=== PATIENT | female | born 1955 | race Caucasian/White ===

== ENCOUNTER 2019-05-10 01:17 | Inpatient (IN) ==
[2019-05-10 01:42] VITALS: BMI 30.4
[2019-05-10] MEDS ORDERED: ROCEPHIN VIAL 1 GRAM IVP ONE (02:32)
--- NOTE | 2019-05-10 02:55 | ED.ABDFE ---
HPI Time Seen Time Seen by Provider: 05/10/19 02:32 PCP Primary Care Physician: PILAR Garcia Doctors Chief Complaint Comments: 63 yo female who presents for LLQ pain that started ~ 2days ago. She states that it feels like wave of sharp pain. Nothing helps and she has not had this pain previously. She states that she is constipated intermittently due to pain medication. She has not moved her bowels 72 hr ago. She has tired enema and suppository. She denies fever/nausea/vomiting/ chest pain/ SOB. Chief Complaint:: PT STATED SHE IS HAVING ABDOMINAL PAIN THWAT BEGAN HURTING ALL OVER AND NOW THE PAIN IS MOSTLY IN HER R SIDE. PT STATED THE PAIN BEGAN ABOUT 48 HRS AGO. PT STATED SHE HAD A BOWEL MOVEMENT ABOUT 3 DAYS AGO. Source History Provided: Patient and Family Member Mode of arrival Mode of Arrival: Wheelchair Timing Onset of Chief Complaint: 05/08/19 PMH PMH Past Medical History: Yes Past Medical History: Diabetes, Hypertension and Sleep Apnea Past Medical History Comment: FIBROMYALGIA, ADULT ONSET SCOLIOSIS Past Surgical History: No Surgical History: No History Family History History of Family Medical Conditions: Yes Family Medical History: Diabetes Mellitus, Cancer and [place] Social History Alcohol Use: None Do you use any recreational Drugs:: No infectious screening Have you traveled outside the country in the last 6 months?: No ROS Review of Systems Constitutional: No Symptoms Reported Eyes: No Symptoms Reported ENTM: No Symptoms Reported Respiratoy: No Symptoms Reported Cardiovascular: No Symptoms Reported Gastrointestinal/Abdominal: Abdominal Pain and Constipation Genitourinary: No Symptoms Reported Neurological: No Symptoms Reported Musculoskeletal: No Symptoms Reported Integumentary: No Symptoms Reported Hematologic/Lymphatic: No Symptoms Reported Endocrine: No Symptoms Reported Psychiatric: No Symptoms Reported All Other Systems: Reviewed and Negative PE Vital Signs Vitals: Temperature 98.9 F Pulse Rate [Left Brachial] 104 Pulse Rate 108 Respiratory Rate 13 Blood Pressure [Right Arm] 80/41 Blood Pressure [Left Arm] 138/70 Blood Pressure 103/58 O2 Sat by Pulse Oximetry 96 General Limitations: No Limitations General Appearance: Alert and In No Apparent Distress Head Head Exam: Normal Inspection, Atraumatic and Normocephalic Eyes Eye exam: Normal Appearance, PERRL and EOMI ENT ENT Exam: Normal Exam and Normal Oropharynx Neck Neck Exam: Normal Inspection and Full ROM Respiratory Respiratory Exam: Normal Lung Sounds Bilat Respiratory Exam: Bilateral: Clear to Auscultation Cardiovascular Cardiovascular Exam: Regular Rate Abdominal Exam Abdominal Exam: Normal Inspection, Normal Bowel Sounds, Tenderness (baratric surgery scar midline above umbilicus ) and Hernia (around umbilicus ) Abdominal Tenderness: LLQ Extremeties Extremities Exam: Normal Inspection and Full ROM Neurologic Neurological Exam: Alert, Oriented X3, CN II-XII Intact and Normal Gait Psychiatric Psychiatric Exam: Normal Affect and Normal Mood Skin Skin Exam: Warm, Dry and Intact MDM Additional Information Obtained From Additional information provided by: Old Records and Family Differential Diagnosis Other differential diagnosis: constipation COURSE Treatment Treatment: tx demerol, hyperkalemia tx started in ED, pt NPO due to GI issue, Reevaluation 1st: Unchanged (03:00 above the same ) 2nd: Improved (05:30 pt states that pain went away) 3rd: Worsened (07:00 plan explained to patient and need for surgerical evaulation) Consultation Consultation Comments: Aleksandr Douglas advised need for admission. Education/Counseling Education/Counseling: Patient, Family, Education and Counseling Educated On: Treatment, Diagnosis, Prognosis and Needs for Follow Up ROR Labs Reviewed Laboratory Results Reviewed?: Yes (please see original labs in ED, pt was potassium was 5.4. labs shown R new) Result Diagrams: 05/11/19 05:16 05/11/19 07:08 Laboratory: WBC 11.7 X10^3/uL (3.6-10.0) H 05/11/19 05:16 RBC 4.09 X10^6/uL (3.5-5.4) 05/11/19 05:16 Hgb 13.0 g/dL (12.0-16.0) D 05/11/19 05:16 Hct 39.7 % (36.0-47.0) 05/11/19 05:16 MCV 97.2 fL (80.0-100.0) 05/11/19 05:16 MCH 31.9 pg (27.0-34.0) 05/11/19 05:16 MCHC 32.8 g/dL (33.0-35.0) L 05/11/19 05:16 RDW 15.0 % (11.6-16.5) 05/11/19 05:16 Plt Count 156 X10^3/uL (150.0-450.0) 05/11/19 05:16 MPV 10.3 fL (7.4-11.0) 05/11/19 05:16 Neut % (Auto) 82.6 % (42.0-75.0) H 05/11/19 05:16 Lymph % (Auto) 9.6 % (21.0-51.0) L 05/11/19 05:16 [place] % (Auto) 7.5 % (0.0-13.0) 05/11/19 05:16 Eos % (Auto) 0.1 % (0.9-2.9) L 05/11/19 05:16 Baso % (Auto) 0.2 % (0.2-1.0) 05/11/19 05:16 Neut # (Auto) 9.7 x10^3/uL (2.2-4.8) H 05/11/19 05:16 Lymph # (Auto) 1.1 X10^3/uL (1.3-2.9) L 05/11/19 05:16 [place] # (Auto) 0.9 x10^3/uL (0.3-0.8) H 05/11/19 05:16 Eos # (Auto) 0.0 x10^3/uL (0.0-0.2) 05/11/19 05:16 Baso # (Auto) 0.0 X10^3/uL (0.0-0.1) 05/11/19 05:16 Absolute Nucleated RBC 0.0 /100WBC 05/11/19 05:16 PT 14.0 SECONDS (11.8-14.3) 05/10/19 10:49 INR Target Range - 05/10/19 10:49 INR 1.12 (0.8-1.3) 05/10/19 10:49 Sodium 137 mmol/L (136-145) 05/11/19 07:08 Corrected Sodium 141 mmol/L (136-145) 05/11/19 07:08 Potassium 6.7 mmol/L (3.5-5.1) H* 05/11/19 07:08 Chloride 108 mmol/L (98-107) H 05/11/19 07:08 Carbon Dioxide 15.3 mmol/L (21-32) L 05/11/19 07:08 BUN 37 mg/dL (7-18) H 05/11/19 07:08 Creatinine 3.54 mg/dL (0.55-1.02) H 05/11/19 07:08 Est GFR (MDRD) Af Amer 17 (>60) L 05/11/19 07:08 Est GFR (MDRD) Non-Af 14 (>60) L 05/11/19 07:08 Glucose 255 mg/dL (65-99) H 05/11/19 07:08 POC Glucose (mg/dL) 267 mg/dL (65-99) H 05/11/19 05:29 Calcium 8.1 mg/dL (8.5-10.1) L 05/11/19 07:08 Corrected Calcium 9.3 mg/dL (8.5-10.1) 05/11/19 07:08 Total Bilirubin 0.30 mg/dL (0.2-1.0) 05/11/19 07:08 AST 32 Units/L (15-37) 05/11/19 07:08 ALT 24 Units/L (12-78) 05/11/19 07:08 Alkaline Phosphatase 60 Units/L (46-116) 05/11/19 07:08 Total Protein 5.9 g/dL (6.4-8.2) L 05/11/19 07:08 Albumin 2.5 g/dL (3.4-5.0) L 05/11/19 07:08 Globulin 3.4 g/dL (2.5-4.5) 05/11/19 07:08 Albumin/Globulin Ratio 0.7 Ratio (1.1-2.1) L 05/11/19 07:08 Lipase 311 Units/L (73-393) 05/10/19 02:56 Specimen Type Catherized urine 05/10/19 12:20 Urine Color Yellow (YELLOW) 05/10/19 12:20 Urine Appearance Slightly hazy (CLEAR) 05/10/19 12:20 Urine pH 5.0 (5.0 - 8.0) 05/10/19 12:20 Ur Specific [place] 1.020 (1.000-1.030) 05/10/19 12:20 Urine Protein Negative (NEGATIVE) 05/10/19 12:20 Urine Glucose (UA) 4+ (NEGATIVE) 05/10/19 12:20 Urine Ketones Negative (NEGATIVE) 05/10/19 12:20 Urine Occult Blood Negative (NEGATIVE) 05/10/19 12:20 Urine Nitrite Negative (NEGATIVE) 05/10/19 12:20 Urine Bilirubin Negative (NEGATIVE) 05/10/19 12:20 Urine Urobilinogen Normal (NORMAL) 05/10/19 12:20 Ur Leukocyte Esterase Negative (NEGATIVE) 05/10/19 12:20 Urine RBC 0-2 /HPF (0-3) 05/10/19 12:20 Urine WBC None seen /HPF (0-5) 05/10/19 12:20 Ur Squamous Epith Cells Few /HPF (NEGATIVE) 05/10/19 12:20 Urine Bacteria Trace /HPF (NEGATIVE) 05/10/19 12:20 Ur Culture Indicated? No/not indicated 05/10/19 12:20 Tissue Pathology To follow 05/10/19 13:00 Other Results Comments: e: ANTWAN BEVERLY CAcct#: [id number]: [id number] : 1955Sex: FLocation: ER Order Number(s): [id number](s):ABDOMEN/PELVIS W/O CON Ordering Physician: Armond Calvo Primary Care: Rajesh Weston Service Date: 05/10/19 Service Time: 550 ADDENDUM HISTORY: Abdominal distension Study: CT abdomen pelvis without contrast Comparison: Plain film same date Technique: Axial noncontrast images with coronal and sagittal reformats. Dose reduction procedures were used with mA/kv adjusted for body size. THIS EXAMINATION IS LIMITED DUE TO THE LACK OF INTRAVENOUS CONTRAST. The examination was performed in this manner at the sole discretion of the ordering caregiver. Findings: The lung bases are clear. The liver, spleen, adrenal glands, and pancreas are within normal limits only to the limitations of an unenhanced examination. The kidneys are unobstructed and without stones. No ureteral calculi are identified. The appendix is not identified with absolute certainty. There are no secondary signs of appendicitis. Postsurgical changes are present in the area of the stomach. Calcific atherosclerotic changes present in a nondilated abdominal aorta. No intraperitoneal or retroperitoneal lymphadenopathy of significance is identified. There is a left para median upper abdominal ventral hernia containing a loop of transverse colon. Proximal to this point the proximal transverse colon, ascending colon, and cecum are markedly dilated. Cecal diameter 10.2 cm. There are no definite findings suggestive of strangulation however incarceration may be present. Immediate surgical evaluation is recommended. There are no findings suggestive of enteritis, diverticulitis, or colitis. Examination of the pelvis demonstrated no evidence for pelvic masses, pelvic fluid, or pelvic lymphadenopathy. No bladder abnormality is identified. No lytic or blastic skeletal lesions of significance are identified. IMPRESSION: Left para median ventral hernia containing a loop of transverse colon and with marked dilatation of the cecum, ascending colon and transverse colon proximal to the hernia indicating obstruction. No definite evidence for strangulation however incarceration is likely. Immediate surgical evaluation is recommended. Reported By: Time called 7:00am Amended by RANCHO FERRARI MD at 05/10/2019 7:23:01 AMThe findings and availability of the report were communicated to Danii Bauer RN,by DIEUDONNE Barkley CALL DESK MAKER, on 05/10/2019 at 7:[address] Rancho Ferrari. Opioid Opioid Risk Tool Age ([place] box if 16-45): No Total: 0 Total Score Risk Category: Low Risk Copyright: Jerry VEGA predicting aberrant behaviors Management Risks, benefits, and alternatives of opioids discussed: Yes Diagnosis Discharge Problem: Incarcerated hernia, Abdominal pain Narrative Support Text: Pt was admitted to for further workup and GI team, Dr. Weston accepted admission and transfer of care ~ 7:30 Am
[2019-05-10] MEDS ORDERED: NS 1000 ML 1,000 ML IV ONE (02:58)
[2019-05-10] MEDS ORDERED: DEMEROL INJ IVP ONE ×2 (03:02→05:51)
[2019-05-10] MEDS ORDERED: ZOFRAN INJ 4 MG VIAL IVP ONE (03:06)
[2019-05-10] MEDS ORDERED: NS 1000 ML 1,000 ML ONE (03:13)
[2019-05-10 03:14] LABS: ALANINE AMINOTRANSFERASE 24 Units/L (12-78); ALBUMIN 3.4 g/dL (3.4-5.0); ALKALINE PHOSPHATASE 81 Units/L (46-116); ASPARTATE AMINO TRANSFERASE 14 Units/L (15-37); BLOOD UREA NITROGEN 32 mg/dL (7-18); CALCIUM 9.4 mg/dL (8.5-10.1); CARBON DIOXIDE 21.4 mmol/L (21-32); CHLORIDE 99 mmol/L (98-107); COR NA(FOR HYPERGLY) 137 mmol/L (136-145); CREATININE 2.65 mg/dL (0.55-1.02); LIPASE 311 Units/L (73-393); SODIUM 131 mmol/L (136-145); TOTAL PROTEIN 7.2 g/dL (6.4-8.2); eGFR NON BLACK RACES 19 (>60)
[2019-05-10] MEDS ORDERED: ZOFRAN INJ 4 MG VIAL ONE (03:14)
[2019-05-10] MEDS ORDERED: DEMEROL INJ ONE ×2 (03:16→05:54)
[2019-05-10 03:17] LABS: BASOPHILS # (AUTO) 0.1 X10^3/uL (0.0-0.1); BASOPHILS % (AUTO) 0.7 % (0.2-1.0); EOSINOPHILS # (AUTO) 0.2 x10^3/uL (0.0-0.2); HEMATOCRIT 47.6 % (36.0-47.0); HEMOGLOBIN 15.9 g/dL (12.0-16.0); LYMPHOCYTES # (AUTO) 2.1 X10^3/uL (1.3-2.9); LYMPHOCYTES % (AUTO) 17.6 % (21.0-51.0); MEAN CORPUSCULAR HEMOGLOBIN 31.7 pg (27.0-34.0); MEAN CORPUSCULAR HGB CONC 33.5 g/dL (33.0-35.0); MEAN CORPUSCULAR VOLUME 94.8 fL (80.0-100.0); MEAN PLATELET VOLUME 10.2 fL (7.4-11.0); MONOCYTES # (AUTO) 0.9 x10^3/uL (0.3-0.8); MONOCYTES % (AUTO) 7.2 % (0.0-13.0); NEUTROPHILS # (AUTO) 8.8 x10^3/uL (2.2-4.8); NEUTROPHILS % (AUTO) 72.5 % (42.0-75.0); PLATELET COUNT 185 X10^3/uL (150.0-450.0); RED BLOOD COUNT 5.01 X10^6/uL (3.5-5.4); RED CELL DISTRIBUTION WIDTH 14.8 % (11.6-16.5); WHITE BLOOD COUNT 12.2 X10^3/uL (3.6-10.0)
--- NOTE | 2019-05-10 05:48 | RAD ---
Abdomen single view 2 images Indication: Right lower abdominal pain Comparison: No recent similar priors Findings: Postsurgical change seen in the left upper quadrant. There are distended loops of bowel, both colon and small bowel. Ileus is possible. Given the distended right colon, cecal volvulus cannot be completely excluded. Correlate clinically and follow-up with further imaging as needed. Impression: Distended loops of bowel. Recommend follow-up imaging and clinical evaluation to exclude volvulus. CT can confirm Reported By:
[2019-05-10 06:16] LABS: CALCIUM 9.1 mg/dL (8.5-10.1); CARBON DIOXIDE 23.3 mmol/L (21-32); CREATININE 2.39 mg/dL (0.55-1.02)
[2019-05-10] MEDS ORDERED: CALCIUM GLUCONATE 10% IV ONE ×2 (06:53→07:24)
--- NOTE | 2019-05-10 07:00 | CT ---
HISTORY: Abdominal distension Study: CT abdomen pelvis without contrast Comparison: Plain film same date Technique: Axial noncontrast images with coronal and sagittal reformats. Dose reduction procedures were used with mA/kv adjusted for body size. THIS EXAMINATION IS LIMITED DUE TO THE LACK OF INTRAVENOUS CONTRAST. The examination was performed in this manner at the sole discretion of the ordering caregiver. Findings: The lung bases are clear. The liver, spleen, adrenal glands, and pancreas are within normal limits only to the limitations of an unenhanced examination. The kidneys are unobstructed and without stones. No ureteral calculi are identified. The appendix is not identified with absolute certainty. There are no secondary signs of appendicitis. Postsurgical changes are present in the area of the stomach. Calcific atherosclerotic changes present in a nondilated abdominal aorta. No intraperitoneal or retroperitoneal lymphadenopathy of significance is identified. There is a left para median upper abdominal ventral hernia containing a loop of transverse colon. Proximal to this point the proximal transverse colon, ascending colon, and cecum are markedly dilated. Cecal diameter 10.2 cm. There are no definite findings suggestive of strangulation however incarceration may be present. Immediate surgical evaluation is recommended. There are no findings suggestive of enteritis, diverticulitis, or colitis. Examination of the pelvis demonstrated no evidence for pelvic masses, pelvic fluid, or pelvic lymphadenopathy. No bladder abnormality is identified. No lytic or blastic skeletal lesions of significance are identified. IMPRESSION: Left para median ventral hernia containing a loop of transverse colon and with marked dilatation of the cecum, ascending colon and transverse colon proximal to the hernia indicating obstruction. No definite evidence for strangulation however incarceration is likely. Immediate surgical evaluation is recommended. Reported By:
[2019-05-10] MEDS ORDERED: NS 100 ML IV 100 ML IV ONE (07:25)
[2019-05-10] MEDS ORDERED: NS 1000 ML 1,000 ML IV SCH (08:00)
[2019-05-10] MEDS ORDERED: SUPRANE ONE (08:43)
[2019-05-10] MEDS ORDERED: ROBINUL ONE (08:43)
[2019-05-10] MEDS ORDERED: VERSED ONE (08:43)
[2019-05-10] MEDS ORDERED: QUELICIN (OR ANECTINE) ONE (08:43)
[2019-05-10] MEDS ORDERED: DIPRIVAN VIAL ONE (08:43)
[2019-05-10] MEDS ORDERED: NEOSTIGMINE INJ ONE (08:43)
[2019-05-10] MEDS ORDERED: EPHEDRINE SULFATE INJ ONE (08:43)
[2019-05-10] MEDS ORDERED: NORCURON INJ 10 MG VIAL ONE (08:43)
[2019-05-10] MEDS: MORPHINE SULFATE INJ 2 MG INJ IVP PRN (09:31)
[2019-05-10] MEDS ORDERED: FENTANYL INJ 250 mcg ONE ×2 (11:35→13:05)
[2019-05-10] MEDS ORDERED: ANCEF 1 GRAM IV PREMIX* 1 G/50 ML BAG IV ONE (11:44)
[2019-05-10] MEDS ORDERED: LR 1000 ML IV 1,000 ML IV ONE (11:44)
--- NOTE | 2019-05-10 12:08 | RAD ---
HISTORY: Abdominal pain Study: Single-view chest Comparison: 12/01/2014. Findings: Trachea midline. Heart size is upper normal. Right lung is clear. There is chronic increased lung markings in the left lung base. Findings may represent atelectasis or infiltrate. No significant pleural fluid or pneumothorax is seen. Osseous structures are intact. There surgical clips in the upper abdomen. IMPRESSION: Chronic atelectasis or infiltrate in the left lower lobe. Reported By:
[2019-05-10] MEDS ORDERED: LEVAQUIN PREMIX IV 500 MG 500 MG/100 ML BAG IV ONE (12:25)
[2019-05-10] MEDS ORDERED: BACITRACIN VIAL ONE (13:18)
[2019-05-10 13:27] LABS: BILIRUBIN,URINE NEGATIVE (NEGATIVE); BLOOD/HEMOGLOBIN,URINE NEGATIVE (NEGATIVE); GLUCOSE, URINE 4+ (NEGATIVE); KETONES,URINE NEGATIVE (NEGATIVE); LEUKOCYTE ESTERASE ,URINE NEGATIVE (NEGATIVE); NITRITES,URINE NEGATIVE (NEGATIVE); PROTEIN,URINE NEGATIVE (NEGATIVE); UROBILINOGEN,URINE NORMAL (NORMAL)
[2019-05-10 13:34] LABS: APPEARANCE,URINE SLIGHTLY HAZY (CLEAR); BACTERIA,URINE TRACE /HPF (NEGATIVE); COLOR,URINE YELLOW (YELLOW); RBC,URINE 0-2 /HPF (0-3); SQUAMOUS EPITHELIAL CELL,UR FEW /HPF (NEGATIVE)
[2019-05-10] MEDS ORDERED: BACTROBAN TOPICAL OINT ONE (13:53)
[2019-05-10] MEDS ORDERED: BENADRYL INJ 50 MG VIAL IVP PRN (14:24)
[2019-05-10] MEDS ORDERED: REGLAN INJ 10 MG VIAL IVP PRN (14:24)
[2019-05-10] MEDS ORDERED: ZOFRAN INJ 4 MG VIAL IVP PRN (14:24)
[2019-05-10] MEDS ORDERED: PHENERGAN INJ 25 MG IM PRN (14:24)
[2019-05-10] MEDS ORDERED: DILAUDID INJ IVP PRN ×2 (14:24→14:36)
[2019-05-10] MEDS ORDERED: D5 1/2 NS 1000 ML 1,000 ML IV SCH (15:00)
[2019-05-10] MEDS ORDERED: NS IRRIGATION 1000 ML ONE (15:12)
--- NOTE | 2019-05-10 19:12 | DR.H&P ---
H&P - History & Physical for Day of: H&P Date: 05/10/19 - Chief Complaint Chief Complaint: ABDOMINAL PAIN - History of Present Illness History of Present Illness: IS A 63 YEAR OLD PATIENT OF OURS WHO PRESENTED TO THE ER WITH COMPLAINTS OF ABDOMINAL PAIN. SHE REPORTED THAT SYMPTOMS STARTED APPROXIMATELY 48 HOURS PRIOR TO ARRIVAL. PAIN WAS INNITIALLY DIFFUSE, BUT IS NOW LOCATED IN THE LLQ. SHE ADMITS TO INTERMITTENT CONSTIPATION AND HAS NOT HAD A BOWEL MOVEMENT IN THE PAST THREE DAYS. ABDOMEN IS NOTED TO BE DISTENDED ON EXAMINATION. ON ARRIVAL, VITALS WERE 97.4-103-18-92%-108/62. LABS WERE OBTAINED. ABNORMAL LAB VALUES INCLUDE THE FOLLOWING: WBC 12.2, HCT 47.6, SODIUM 131, POTASSIUM 5.3, BUN 32, CREATININE 2.65, GLUCOSE 343, AST 14. URINALYSIS IS UNREMARKABLE. KUB OBTAINED AND REVEALED: Distended loops of bowel. Recommend follow-up imaging and clinical evaluation to exclude volvulus. CT can confirm. WE THEN OBTAINED AN ABDOMEN/PELVIS CT. IT REVEALED: Left para median ventral hernia containing a loop of transverse colon and with marked dilatation of the cecum, ascending colon and transverse colon proximal to the hernia indicating obstruction. No definite evidence for strangulation however incarceration is likely. Immediate surgical evaluation is recommended. EGK OBTAINED AND REVEALED: SINUS RHYTHM WITH HR 97. A CHEST XRAY WAS OBTAINED AND REVEALED: Chronic atelectasis or infiltrate in the left lower lobe. HE WAS GIVEN A NORMAL SALINE BOLUS, DEMEROL 12.5MG IV X 1 DOSE, ZOFRAN 4MG IV X 1 DOSE, AND AN ADDITIONAL DOSE OF DEMEROL 25MG IV X 1 IN THE ER. SHE WAS ADMITTED FOR FURTHER EVALUATION AND TREATMENT OF INCARCERATED HERNIA AND ABDOMINAL PAIN. SHE WAS STARTED ON NORMAL SALINE AT 75ML/HR, PROTONIX 40MG IV DAILY, MORPHINE 2MG IV Q4H PRN, AND ZOFRAN 4MG IV Q6H PRN. , GENERAL SURGEON WAS CONSULTED. Pablo MARRUFO, WE PLAN TO FOLLOW UP WITH AM LABS AD CONTINUE TO MONITOR. - Past Medical History Past Medical History: Hypertension, Diabetes, Sleep Apnea Additional Medical History: Recent Critical Care Illness/ARDS, Fibromyalgia - Past Surgical History Surgical History: Other Additional Surgical History: Lap Band, Reduction Mammoplasty - Family History Family Medical History: Diabetes Mellitus, Cancer, [place] - Social History Does any household member use tobacco: No Alcohol Use: None Drug Use: Prescription Drugs Prescription drug monitoring program results: PDMP was not reviewed - Medications Home Medications: iodine Allergy (Verified 05/10/19 02:26) Uhewpfd-Xai-Srg Reductase Inhibitor Allergy (Verified 05/10/19 02:26) - Review of Systems Constitutional: Weakness Eyes: No Symptoms Reported ENT: No Symptoms Reported Respiratory: No Symptoms Reported Cardiovascular: No Symptoms Reported Gastrointestinal: See HPI, Nausea, Abdominal Pain, Constipation Genitourinary: No Symptoms Reported Musculoskeletal: No Symptoms Reported Skin: No Symptoms Reported - Physical Exam Vital Signs: Temperature 98.6 F Pulse Rate [Left Brachial] 106 Pulse Rate 103 Respiratory Rate 18 Blood Pressure [Right Arm] 103/58 Blood Pressure [Left Arm] 138/70 Blood Pressure 103/58 O2 Sat by Pulse Oximetry 94 Oriented: Normal Eyes: Normal Ear: Normal Nose: Normal Throat: Normal Respiratory: Clear Throughout Cardiovascular: Tachycardia. negative: S3, S4, Murmur : Normal Auscultation: Bowel Sounds: Normal Palpation: Normal Tenderness: Diffuse, LLQ, Moderate. negative: Rebound, Guarding, Rigidity Skin: Normal Musculoskeletal: Normal Psychiatric: Normal Mood Description: Calm Affect: Normal Speech Pattern: Clear - Assessment/Plan (1) Abdominal pain Qualifiers: Abdominal location: left lower quadrant Qualified Code(s): R10.32 - Left lower quadrant pain Status: Acute Plan: ADMIT, NORMAL SALINE AT 75ML/HR, PROTONIX 40MG IV DAILY, MORPHINE 2MG IV Q4H PRN, AND ZOFRAN 4MG IV Q6H PRN, SURGICAL CONSULT, NPO (2) Incarcerated hernia Status: Acute - Allergies Allergies/Adverse Reactions: Allergies Allergy/AdvReac Type Severity Reaction Status Date / Time iodine Allergy Verified 05/10/19 02:26 Mfolsho-Qwk-Imh Reductase Allergy Verified 05/10/19 02:26 Inhibitor
[2019-05-10] MEDS: NS 1000 ML 1,000 ML IV SCH (21:48)
[2019-05-11] MEDS: NS 1000 ML 1,000 ML IV SCH ×3 (00:30→20:09)
[2019-05-11 06:40] LABS: BASOPHILS % (AUTO) 0.2 % (0.2-1.0); EOSINOPHILS % (AUTO) 0.1 % (0.9-2.9); HEMATOCRIT 39.7 % (36.0-47.0); LYMPHOCYTES # (AUTO) 1.1 X10^3/uL (1.3-2.9); LYMPHOCYTES % (AUTO) 9.6 % (21.0-51.0); MEAN CORPUSCULAR HEMOGLOBIN 31.9 pg (27.0-34.0); MEAN CORPUSCULAR HGB CONC 32.8 g/dL (33.0-35.0); MEAN CORPUSCULAR VOLUME 97.2 fL (80.0-100.0); MEAN PLATELET VOLUME 10.3 fL (7.4-11.0); MONOCYTES # (AUTO) 0.9 x10^3/uL (0.3-0.8); MONOCYTES % (AUTO) 7.5 % (0.0-13.0); NEUTROPHILS # (AUTO) 9.7 x10^3/uL (2.2-4.8); NEUTROPHILS % (AUTO) 82.6 % (42.0-75.0); PLATELET COUNT 156 X10^3/uL (150.0-450.0); RED BLOOD COUNT 4.09 X10^6/uL (3.5-5.4); WHITE BLOOD COUNT 11.7 X10^3/uL (3.6-10.0)
[2019-05-11 07:00] LABS: ALBUMIN 2.5 g/dL (3.4-5.0); CALCIUM 8.1 mg/dL (8.5-10.1); CARBON DIOXIDE 15.3 mmol/L (21-32); COR CA(FOR HYPOALB) 9.3 mg/dL (8.5-10.1); CREATININE 3.54 mg/dL (0.55-1.02); TOTAL PROTEIN 5.9 g/dL (6.4-8.2)
--- NOTE | 2019-05-11 08:23 | DR.PROGNOT ---
Hospital Progress Notes - Progress Note for Day of: Progress Note Date: 05/11/19 - Chief Complaint Chief Complaint: Post op day 1. c/o incisional pain . urine OP was low as well as BP . - Past Medical Family Social History Past Med/Fam/Surg Hx: No changes since H&P Allergies: Allergies hydromorphone [From Dilaudid] Allergy (Verified 05/10/19 22:16) HALLUCINATIONS iodine Allergy (Verified 05/10/19 02:26) Dyhukia-Adn-Uvd Reductase Inhibitor Allergy (Verified 05/10/19 02:26) - Review Of Systems ROS: No change since H&P - Vital Signs Vital Signs: Temperature 98.9 F Pulse Rate [Left Brachial] 104 Pulse Rate 103 Respiratory Rate 13 Blood Pressure [Right Arm] 80/41 Blood Pressure [Left Arm] 138/70 Blood Pressure 103/58 O2 Sat by Pulse Oximetry 95 - Physical Exam Oriented: Normal Eyes: Normal Ear: Normal Nose: Normal Throat: Normal Cardiovascular: Tachycardia. negative: S3, S4, Murmur : Other (groves in place ) GI:Auscultation: Normal, Decreased GI:Palpation: Normal GI: Tenderness: Diffuse (moderate .), LLQ, Moderate. negative: Rebound, Guarding, Rigidity Skin: Normal Musculoskeletal: Normal Psychiatric: Normal Mood Description: Calm Affect: Normal Speech Pattern: Appropriate - Laboratory and Diagnostics Result Diagrams: 05/11/19 05:16 05/11/19 07:08 Labs: Laboratory WBC 11.7 X10^3/uL (3.6-10.0) H 05/11/19 05:16 RBC 4.09 X10^6/uL (3.5-5.4) 05/11/19 05:16 Hgb 13.0 g/dL (12.0-16.0) D 05/11/19 05:16 Hct 39.7 % (36.0-47.0) 05/11/19 05:16 MCV 97.2 fL (80.0-100.0) 05/11/19 05:16 MCH 31.9 pg (27.0-34.0) 05/11/19 05:16 MCHC 32.8 g/dL (33.0-35.0) L 05/11/19 05:16 RDW 15.0 % (11.6-16.5) 05/11/19 05:16 Plt Count 156 X10^3/uL (150.0-450.0) 05/11/19 05:16 MPV 10.3 fL (7.4-11.0) 05/11/19 05:16 Neut % (Auto) 82.6 % (42.0-75.0) H 05/11/19 05:16 Lymph % (Auto) 9.6 % (21.0-51.0) L 05/11/19 05:16 [place] % (Auto) 7.5 % (0.0-13.0) 05/11/19 05:16 Eos % (Auto) 0.1 % (0.9-2.9) L 05/11/19 05:16 Baso % (Auto) 0.2 % (0.2-1.0) 05/11/19 05:16 Neut # (Auto) 9.7 x10^3/uL (2.2-4.8) H 05/11/19 05:16 Lymph # (Auto) 1.1 X10^3/uL (1.3-2.9) L 05/11/19 05:16 [place] # (Auto) 0.9 x10^3/uL (0.3-0.8) H 05/11/19 05:16 Eos # (Auto) 0.0 x10^3/uL (0.0-0.2) 05/11/19 05:16 Baso # (Auto) 0.0 X10^3/uL (0.0-0.1) 05/11/19 05:16 Absolute Nucleated RBC 0.0 /100WBC 05/11/19 05:16 PT 14.0 SECONDS (11.8-14.3) 05/10/19 10:49 INR Target Range - 05/10/19 10:49 INR 1.12 (0.8-1.3) 05/10/19 10:49 Sodium 137 mmol/L (136-145) 05/11/19 07:08 Corrected Sodium 141 mmol/L (136-145) 05/11/19 07:08 Potassium 6.7 mmol/L (3.5-5.1) H* 05/11/19 07:08 Chloride 108 mmol/L (98-107) H 05/11/19 07:08 Carbon Dioxide 15.3 mmol/L (21-32) L 05/11/19 07:08 BUN 37 mg/dL (7-18) H 05/11/19 07:08 Creatinine 3.54 mg/dL (0.55-1.02) H 05/11/19 07:08 Est GFR (MDRD) Af Amer 17 (>60) L 05/11/19 07:08 Est GFR (MDRD) Non-Af 14 (>60) L 05/11/19 07:08 Glucose 255 mg/dL (65-99) H 05/11/19 07:08 POC Glucose (mg/dL) 267 mg/dL (65-99) H 05/11/19 05:29 Calcium 8.1 mg/dL (8.5-10.1) L 05/11/19 07:08 Corrected Calcium 9.3 mg/dL (8.5-10.1) 05/11/19 07:08 Total Bilirubin 0.30 mg/dL (0.2-1.0) 05/11/19 07:08 AST 32 Units/L (15-37) 05/11/19 07:08 ALT 24 Units/L (12-78) 05/11/19 07:08 Alkaline Phosphatase 60 Units/L (46-116) 05/11/19 07:08 Total Protein 5.9 g/dL (6.4-8.2) L 05/11/19 07:08 Albumin 2.5 g/dL (3.4-5.0) L 05/11/19 07:08 Globulin 3.4 g/dL (2.5-4.5) 05/11/19 07:08 Albumin/Globulin Ratio 0.7 Ratio (1.1-2.1) L 05/11/19 07:08 Lipase 311 Units/L (73-393) 05/10/19 02:56 Specimen Type Catherized urine 05/10/19 12:20 Urine Color Yellow (YELLOW) 05/10/19 12:20 Urine Appearance Slightly hazy (CLEAR) 05/10/19 12:20 Urine pH 5.0 (5.0 - 8.0) 05/10/19 12:20 Ur Specific [place] 1.020 (1.000-1.030) 05/10/19 12:20 Urine Protein Negative (NEGATIVE) 05/10/19 12:20 Urine Glucose (UA) 4+ (NEGATIVE) 05/10/19 12:20 Urine Ketones Negative (NEGATIVE) 05/10/19 12:20 Urine Occult Blood Negative (NEGATIVE) 05/10/19 12:20 Urine Nitrite Negative (NEGATIVE) 05/10/19 12:20 Urine Bilirubin Negative (NEGATIVE) 05/10/19 12:20 Urine Urobilinogen Normal (NORMAL) 05/10/19 12:20 Ur Leukocyte Esterase Negative (NEGATIVE) 05/10/19 12:20 Urine RBC 0-2 /HPF (0-3) 05/10/19 12:20 Urine WBC None seen /HPF (0-5) 05/10/19 12:20 Ur Squamous Epith Cells Few /HPF (NEGATIVE) 05/10/19 12:20 Urine Bacteria Trace /HPF (NEGATIVE) 05/10/19 12:20 Ur Culture Indicated? No/not indicated 05/10/19 12:20 Tissue Pathology To follow 05/10/19 13:00 - Assessment and Plan 1: PO laparotomy , lysis of adhesions . rapair of incarcerated incisional hernia ,. dehydration and hyperkalemia . CKD . DM . to increase IVF . Insuline coverage and correction of hyperkalemia - Problem Patient Problems: Patient Problems Abdominal pain (Acute) R10.9 Incarcerated hernia (Acute) K46.0
[2019-05-11] MEDS: LOVENOX INJ 30 MG SYR SC SCH (08:44)
[2019-05-11] MEDS: PROTONIX INJ 40 MG VIAL IVP SCH (08:45)
[2019-05-11] MEDS: DUONEB 0.5 MG/3 MG NEB SCH ×4 (08:56→20:41)
[2019-05-11] MEDS ORDERED: NS 1000 ML 1,000 ML IV SCH (09:00)
--- NOTE | 2019-05-11 09:29 | RAD ---
History: Shortness of breath Exam: Chest x-ray Comparison: 12/01/2014 Technique: Portable AP chest Findings: The left ventricle is mildly enlarged but unchanged. The pulmonary vessels are less prominent centrally . The lungs are hypoinflated with some hazy subsegmental bibasilar opacities which are more prominent. No obvious effusion is seen. IMPRESSION: Hypoinflation with increasing subsegmental atelectasis or developing infiltrates along the lung bases. Stable left ventricular enlargement. Reported By:
[2019-05-11] MEDS ORDERED: NS 1000 ML 1,000 ML IV ONE (10:10)
[2019-05-11] MEDS ORDERED: LASIX IVP ONE (10:10)
[2019-05-11] MEDS: MORPHINE SULFATE INJ 2 MG INJ IVP PRN (17:35)
[2019-05-11] MEDS: TORADOL 15 MG VIAL IVP PRN (20:08)
[2019-05-12] MEDS: TORADOL 15 MG VIAL IVP PRN ×2 (01:32→08:40)
[2019-05-12 05:06] LABS: BASOPHILS % (AUTO) 0.4 % (0.2-1.0); EOSINOPHILS # (AUTO) 0.1 x10^3/uL (0.0-0.2); EOSINOPHILS % (AUTO) 1.2 % (0.9-2.9); HEMATOCRIT 36.2 % (36.0-47.0); HEMOGLOBIN 12.1 g/dL (12.0-16.0); LYMPHOCYTES # (AUTO) 1.2 X10^3/uL (1.3-2.9); LYMPHOCYTES % (AUTO) 15.1 % (21.0-51.0); MEAN CORPUSCULAR HEMOGLOBIN 31.9 pg (27.0-34.0); MEAN CORPUSCULAR HGB CONC 33.3 g/dL (33.0-35.0); MEAN CORPUSCULAR VOLUME 95.8 fL (80.0-100.0); MEAN PLATELET VOLUME 9.8 fL (7.4-11.0); MONOCYTES # (AUTO) 0.6 x10^3/uL (0.3-0.8); MONOCYTES % (AUTO) 7.9 % (0.0-13.0); NEUTROPHILS # (AUTO) 5.9 x10^3/uL (2.2-4.8); NEUTROPHILS % (AUTO) 75.4 % (42.0-75.0); PLATELET COUNT 127 X10^3/uL (150.0-450.0); RED BLOOD COUNT 3.78 X10^6/uL (3.5-5.4); RED CELL DISTRIBUTION WIDTH 14.4 % (11.6-16.5); WHITE BLOOD COUNT 7.8 X10^3/uL (3.6-10.0)
[2019-05-12 05:15] LABS: ALBUMIN 2.1 g/dL (3.4-5.0); CALCIUM 8.1 mg/dL (8.5-10.1); CARBON DIOXIDE 19.4 mmol/L (21-32); COR CA(FOR HYPOALB) 9.6 mg/dL (8.5-10.1); CREATININE 2.71 mg/dL (0.55-1.02); TOTAL PROTEIN 5.7 g/dL (6.4-8.2)
[2019-05-12] MEDS: MORPHINE SULFATE INJ 2 MG INJ IVP PRN ×2 (06:12→18:15)
[2019-05-12] MEDS: DUONEB 0.5 MG/3 MG NEB SCH ×4 (08:20→20:31)
[2019-05-12] MEDS: PROTONIX INJ 40 MG VIAL IVP SCH (08:36)
[2019-05-12] MEDS: LOVENOX INJ 30 MG SYR SC SCH (08:36)
--- NOTE | 2019-05-12 09:41 | DR.PROGNOT ---
Hospital Progress Notes - Progress Note for Day of: Progress Note Date: 05/12/19 - Chief Complaint Chief Complaint: Post op day 2. c/o incisional pain . good urine Out Put , renal function still abnormal . afebrile and stable BP . - Past Medical Family Social History Past Med/Fam/Surg Hx: No changes since H&P Allergies: Allergies hydromorphone [From Dilaudid] Allergy (Verified 05/10/19 22:16) HALLUCINATIONS iodine Allergy (Verified 05/10/19 02:26) Vpjkccb-Exq-Yqy Reductase Inhibitor Allergy (Verified 05/10/19 02:26) - Review Of Systems ROS: No change since H&P - Vital Signs Vital Signs: Temperature 98.1 F Pulse Rate [Left Brachial] 106 Pulse Rate 102 Respiratory Rate 20 Blood Pressure [Right Arm] 92/53 Blood Pressure [Left Arm] 138/70 Blood Pressure 95/62 O2 Sat by Pulse Oximetry 94 - Physical Exam Oriented: Normal Eyes: Normal Ear: Normal Nose: Normal Throat: Normal Cardiovascular: Tachycardia. negative: S3, S4, Murmur : Other (groves in place ) GI:Auscultation: Normal, Decreased GI:Palpation: Normal GI: Tenderness: Diffuse (moderate .), LLQ, Moderate. negative: Rebound, Gu arding, Rigidity Skin: Normal Musculoskeletal: Normal Psychiatric: Normal Mood Description: Calm Affect: Normal Speech Pattern: Clear, Appropriate - Laboratory and Diagnostics Result Diagrams: 05/12/19 04:29 05/12/19 04:29 Labs: Laboratory WBC 7.8 X10^3/uL (3.6-10.0) 05/12/19 04:29 RBC 3.78 X10^6/uL (3.5-5.4) 05/12/19 04:29 Hgb 12.1 g/dL (12.0-16.0) 05/12/19 04:29 Hct 36.2 % (36.0-47.0) 05/12/19 04:29 MCV 95.8 fL (80.0-100.0) 05/12/19 04:29 MCH 31.9 pg (27.0-34.0) 05/12/19 04:29 MCHC 33.3 g/dL (33.0-35.0) 05/12/19 04:29 RDW 14.4 % (11.6-16.5) 05/12/19 04:29 Plt Count 127 X10^3/uL (150.0-450.0) L 05/12/19 04:29 MPV 9.8 fL (7.4-11.0) 05/12/19 04:29 Neut % (Auto) 75.4 % (42.0-75.0) H 05/12/19 04:29 Lymph % (Auto) 15.1 % (21.0-51.0) L 05/12/19 04:29 [place] % (Auto) 7.9 % (0.0-13.0) 05/12/19 04:29 Eos % (Auto) 1.2 % (0.9-2.9) 05/12/19 04:29 Baso % (Auto) 0.4 % (0.2-1.0) 05/12/19 04:29 Neut # (Auto) 5.9 x10^3/uL (2.2-4.8) H 05/12/19 04:29 Lymph # (Auto) 1.2 X10^3/uL (1.3-2.9) L 05/12/19 04:29 [place] # (Auto) 0.6 x10^3/uL (0.3-0.8) 05/12/19 04:29 Eos # (Auto) 0.1 x10^3/uL (0.0-0.2) 05/12/19 04:29 Baso # (Auto) 0.0 X10^3/uL (0.0-0.1) 05/12/19 04:29 Absolute Nucleated RBC 0.0 /100WBC 05/12/19 04:29 PT 14.0 SECONDS (11.8-14.3) 05/10/19 10:49 INR Target Range - 05/10/19 10:49 INR 1.12 (0.8-1.3) 05/10/19 10:49 Sodium 139 mmol/L (136-145) 05/12/19 04:29 Corrected Sodium 142 mmol/L (136-145) 05/12/19 04:29 Potassium 5.1 mmol/L (3.5-5.1) 05/12/19 04:29 Chloride 108 mmol/L (98-107) H 05/12/19 04:29 Carbon Dioxide 19.4 mmol/L (21-32) L 05/12/19 04:29 BUN 40 mg/dL (7-18) H 05/12/19 04:29 Creatinine 2.71 mg/dL (0.55-1.02) H 05/12/19 04:29 Est GFR (MDRD) Af Amer 23 (>60) L 05/12/19 04:29 Est GFR (MDRD) Non-Af 19 (>60) L 05/12/19 04:29 Glucose 206 mg/dL (65-99) H 05/12/19 04:29 POC Glucose (mg/dL) 185 mg/dL (65-99) H 05/12/19 05:56 Calcium 8.1 mg/dL (8.5-10.1) L 05/12/19 04:29 Corrected Calcium 9.6 mg/dL (8.5-10.1) 05/12/19 04:29 Total Bilirubin 0.30 mg/dL (0.2-1.0) 05/12/19 04:29 AST 99 Units/L (15-37) H 05/12/19 04:29 ALT 43 Units/L (12-78) 05/12/19 04:29 Alkaline Phosphatase 55 Units/L (46-116) 05/12/19 04:29 Total Protein 5.7 g/dL (6.4-8.2) L 05/12/19 04:29 Albumin 2.1 g/dL (3.4-5.0) L 05/12/19 04:29 Globulin 3.6 g/dL (2.5-4.5) 05/12/19 04:29 Albumin/Globulin Ratio 0.6 Ratio (1.1-2.1) L 05/12/19 04:29 Lipase 311 Units/L (73-393) 05/10/19 02:56 Specimen Type Catherized urine 05/10/19 12:20 Urine Color Yellow (YELLOW) 05/10/19 12:20 Urine Appearance Slightly hazy (CLEAR) 05/10/19 12:20 Urine pH 5.0 (5.0 - 8.0) 05/10/19 12:20 Ur Specific [place] 1.020 (1.000-1.030) 05/10/19 12:20 Urine Protein Negative (NEGATIVE) 05/10/19 12:20 Urine Glucose (UA) 4+ (NEGATIVE) 05/10/19 12:20 Urine Ketones Negative (NEGATIVE) 05/10/19 12:20 Urine Occult Blood Negative (NEGATIVE) 05/10/19 12:20 Urine Nitrite Negative (NEGATIVE) 05/10/19 12:20 Urine Bilirubin Negative (NEGATIVE) 05/10/19 12:20 Urine Urobilinogen Normal (NORMAL) 05/10/19 12:20 Ur Leukocyte Esterase Negative (NEGATIVE) 05/10/19 12:20 Urine RBC 0-2 /HPF (0-3) 05/10/19 12:20 Urine WBC None seen /HPF (0-5) 05/10/19 12:20 Ur Squamous Epith Cells Few /HPF (NEGATIVE) 05/10/19 12:20 Urine Bacteria Trace /HPF (NEGATIVE) 05/10/19 12:20 Ur Culture Indicated? No/not indicated 05/10/19 12:20 Tissue Pathology To follow 05/10/19 13:00 - Assessment and Plan 1: PO laparotomy , lysis of adhesions . rapair of incarcerated incisional hernia ,. dehydration and hyperkalemia .( corrected ). CKD . DM . same PO care.. DVT prophylaxis , OOB . liquid diet . - Problem Patient Problems: Patient Problems Abdominal pain (Acute) R10.9 Incarcerated hernia (Acute) K46.0
[2019-05-12] MEDS: NS 1000 ML 1,000 ML IV SCH ×3 (09:52→20:09)
[2019-05-12] MEDS: LEVAQUIN PREMIX IV 500 MG 500 MG/100 ML BAG IV SCH (11:13)
[2019-05-12] MEDS ORDERED: ZOLOFT PO ONE (13:40)
[2019-05-12] MEDS: SYNTHROID 50 mcg TAB PO SCH (13:58)
[2019-05-12] MEDS: WELLBUTRIN XL 150 MG (DAILY) PO SCH (13:59)
[2019-05-12] MEDS: XANAX PO SCH ×2 (13:59→21:01)
[2019-05-12] MEDS: ZOLOFT PO SCH (13:59)
[2019-05-12] MEDS: ZOFRAN INJ 4 MG VIAL IVP PRN (14:59)
[2019-05-12] MEDS: ULTRAM PO PRN ×2 (16:12→21:38)
[2019-05-13] MEDS: MORPHINE SULFATE INJ 2 MG INJ IVP PRN ×4 (00:33→14:45)
[2019-05-13] MEDS: NS 1000 ML 1,000 ML IV SCH ×3 (01:57→21:02)
[2019-05-13 05:16] LABS: BASOPHILS # (AUTO) 0.1 X10^3/uL (0.0-0.1); BASOPHILS % (AUTO) 0.8 % (0.2-1.0); EOSINOPHILS # (AUTO) 0.2 x10^3/uL (0.0-0.2); EOSINOPHILS % (AUTO) 2.6 % (0.9-2.9); HEMATOCRIT 36.9 % (36.0-47.0); HEMOGLOBIN 12.3 g/dL (12.0-16.0); LYMPHOCYTES # (AUTO) 1.2 X10^3/uL (1.3-2.9); LYMPHOCYTES % (AUTO) 15.1 % (21.0-51.0); MEAN CORPUSCULAR HEMOGLOBIN 31.9 pg (27.0-34.0); MEAN CORPUSCULAR HGB CONC 33.2 g/dL (33.0-35.0); MEAN CORPUSCULAR VOLUME 96.1 fL (80.0-100.0); MEAN PLATELET VOLUME 9.9 fL (7.4-11.0); MONOCYTES # (AUTO) 0.5 x10^3/uL (0.3-0.8); MONOCYTES % (AUTO) 6.4 % (0.0-13.0); NEUTROPHILS # (AUTO) 5.7 x10^3/uL (2.2-4.8); NEUTROPHILS % (AUTO) 75.1 % (42.0-75.0); PLATELET COUNT 155 X10^3/uL (150.0-450.0); RED BLOOD COUNT 3.84 X10^6/uL (3.5-5.4); RED CELL DISTRIBUTION WIDTH 14.8 % (11.6-16.5); WHITE BLOOD COUNT 7.6 X10^3/uL (3.6-10.0)
[2019-05-13 05:34] LABS: ALBUMIN 2.1 g/dL (3.4-5.0); CALCIUM 8.2 mg/dL (8.5-10.1); COR CA(FOR HYPOALB) 9.7 mg/dL (8.5-10.1); CREATININE 1.72 mg/dL (0.55-1.02)
--- NOTE | 2019-05-13 06:15 | RAD ---
HISTORY: Shortness of breath Study: Chest AP portable Comparison: 05/11/2019 Findings: The heart remains enlarged. No congestive heart failure is noted. The lungs remain hypo inflated. There is some subsegmental atelectasis in the right lung base. No acute infiltrates or pleural effusions are identified. The bony thorax is unremarkable. IMPRESSION: Continued cardiomegaly without congestive heart failure Continued hypo inflation Subsegmental atelectasis right lung base Reported By:
[2019-05-13] MEDS: XANAX PO SCH ×3 (06:43→21:04)
[2019-05-13] MEDS ORDERED: ZOLOFT PO ONE (08:20)
[2019-05-13] MEDS: DUONEB 0.5 MG/3 MG NEB SCH ×4 (08:26→21:40)
[2019-05-13] MEDS: WELLBUTRIN XL 150 MG (DAILY) PO SCH (08:52)
[2019-05-13] MEDS: ZOLOFT PO SCH (08:52)
[2019-05-13] MEDS: SYNTHROID 50 mcg TAB PO SCH (08:53)
[2019-05-13] MEDS: LOVENOX INJ 30 MG SYR SC SCH (08:54)
[2019-05-13] MEDS: PROTONIX INJ 40 MG VIAL IVP SCH ×3 (08:54→21:04)
[2019-05-13] MEDS: ZOFRAN INJ 4 MG VIAL IVP PRN ×2 (09:01→21:11)
[2019-05-13] MEDS: LEVAQUIN PREMIX IV 500 MG 500 MG/100 ML BAG IV SCH (09:01)
--- NOTE | 2019-05-13 09:33 | DR.PROGNOT ---
Hospital Progress Notes - Progress Note for Day of: Progress Note Date: 05/13/19 - Chief Complaint Chief Complaint: Post op day 3. c/o incisional pain . passing flatus , no BM yet . c/o heartburn. good urine Out Put with improvement of renal function. afebrile and stable BP . on full liquid now . - Past Medical Family Social History Past Med/Fam/Surg Hx: No changes since H&P Allergies: Allergies hydromorphone [From Dilaudid] Allergy (Verified 05/10/19 22:16) HALLUCINATIONS iodine Allergy (Verified 05/10/19 02:26) Czkrnxp-Qub-Nnn Reductase Inhibitor Allergy (Verified 05/10/19 02:26) - Review Of Systems ROS: No change since H&P - Vital Signs Vital Signs: Temperature 98.5 F Pulse Rate [Left Brachial] 106 Pulse Rate 102 Respiratory Rate 16 Blood Pressure [Right Arm] 92/53 Blood Pressure [Left Arm] 138/70 Blood Pressure 128/74 O2 Sat by Pulse Oximetry 97 - Physical Exam Oriented: Normal Eyes: Normal Ear: Normal Nose: Normal Throat: Normal Cardiovascular: Tachycardia. negative: S3, S4, Murmur : Other (groves in place ) GI:Auscultation: Decreased GI:Palpation: Normal GI: Tenderness: Diffuse (moderate .), RUQ, Moderate. negative: Rebound, Guarding, Rigidity Skin: Normal Musculoskeletal: Normal Psychiatric: Normal Mood Description: Calm Affect: Normal Speech Pattern: Clear, Appropriate - Laboratory and Diagnostics Result Diagrams: 05/13/19 04:02 05/13/19 04:02 Labs: Laboratory WBC 7.6 X10^3/uL (3.6-10.0) 05/13/19 04:02 RBC 3.84 X10^6/uL (3.5-5.4) 05/13/19 04:02 Hgb 12.3 g/dL (12.0-16.0) 05/13/19 04:02 Hct 36.9 % (36.0-47.0) 05/13/19 04:02 MCV 96.1 fL (80.0-100.0) 05/13/19 04:02 MCH 31.9 pg (27.0-34.0) 05/13/19 04:02 MCHC 33.2 g/dL (33.0-35.0) 05/13/19 04:02 RDW 14.8 % (11.6-16.5) 05/13/19 04:02 Plt Count 155 X10^3/uL (150.0-450.0) 05/13/19 04:02 MPV 9.9 fL (7.4-11.0) 05/13/19 04:02 Neut % (Auto) 75.1 % (42.0-75.0) H 05/13/19 04:02 Lymph % (Auto) 15.1 % (21.0-51.0) L 05/13/19 04:02 [place] % (Auto) 6.4 % (0.0-13.0) 05/13/19 04:02 Eos % (Auto) 2.6 % (0.9-2.9) 05/13/19 04:02 Baso % (Auto) 0.8 % (0.2-1.0) 05/13/19 04:02 Neut # (Auto) 5.7 x10^3/uL (2.2-4.8) H 05/13/19 04:02 Lymph # (Auto) 1.2 X10^3/uL (1.3-2.9) L 05/13/19 04:02 [place] # (Auto) 0.5 x10^3/uL (0.3-0.8) 05/13/19 04:02 Eos # (Auto) 0.2 x10^3/uL (0.0-0.2) 05/13/19 04:02 Baso # (Auto) 0.1 X10^3/uL (0.0-0.1) 05/13/19 04:02 Absolute Nucleated RBC 0.0 /100WBC 05/13/19 04:02 PT 14.0 SECONDS (11.8-14.3) 05/10/19 10:49 INR Target Range - 05/10/19 10:49 INR 1.12 (0.8-1.3) 05/10/19 10:49 Sodium 140 mmol/L (136-145) 05/13/19 04:02 Corrected Sodium 141 mmol/L (136-145) 05/13/19 04:02 Potassium 4.6 mmol/L (3.5-5.1) 05/13/19 04:02 Chloride 109 mmol/L (98-107) H 05/13/19 04:02 Carbon Dioxide 17.0 mmol/L (21-32) L 05/13/19 04:02 BUN 39 mg/dL (7-18) H 05/13/19 04:02 Creatinine 1.72 mg/dL (0.55-1.02) H 05/13/19 04:02 Est GFR (MDRD) Af Amer 38 (>60) L 05/13/19 04:02 Est GFR (MDRD) Non-Af 32 (>60) L 05/13/19 04:02 Glucose 138 mg/dL (65-99) H 05/13/19 04:02 POC Glucose (mg/dL) 120 mg/dL (65-99) H 05/13/19 05:15 Calcium 8.2 mg/dL (8.5-10.1) L 05/13/19 04:02 Corrected Calcium 9.7 mg/dL (8.5-10.1) 05/13/19 04:02 Total Bilirubin 0.40 mg/dL (0.2-1.0) 05/13/19 04:02 AST 59 Units/L (15-37) H 05/13/19 04:02 ALT 38 Units/L (12-78) 05/13/19 04:02 Alkaline Phosphatase 58 Units/L (46-116) 05/13/19 04:02 Total Protein 6.0 g/dL (6.4-8.2) L 05/13/19 04:02 Albumin 2.1 g/dL (3.4-5.0) L 05/13/19 04:02 Globulin 3.9 g/dL (2.5-4.5) 05/13/19 04:02 Albumin/Globulin Ratio 0.5 Ratio (1.1-2.1) L 05/13/19 04:02 Lipase 311 Units/L (73-393) 05/10/19 02:56 Specimen Type Catherized urine 05/10/19 12:20 Urine Color Yellow (YELLOW) 05/10/19 12:20 Urine Appearance Slightly hazy (CLEAR) 05/10/19 12:20 Urine pH 5.0 (5.0 - 8.0) 05/10/19 12:20 Ur Specific [place] 1.020 (1.000-1.030) 05/10/19 12:20 Urine Protein Negative (NEGATIVE) 05/10/19 12:20 Urine Glucose (UA) 4+ (NEGATIVE) 05/10/19 12:20 Urine Ketones Negative (NEGATIVE) 05/10/19 12:20 Urine Occult Blood Negative (NEGATIVE) 05/10/19 12:20 Urine Nitrite Negative (NEGATIVE) 05/10/19 12:20 Urine Bilirubin Negative (NEGATIVE) 05/10/19 12:20 Urine Urobilinogen Normal (NORMAL) 05/10/19 12:20 Ur Leukocyte Esterase Negative (NEGATIVE) 05/10/19 12:20 Urine RBC 0-2 /HPF (0-3) 05/10/19 12:20 Urine WBC None seen /HPF (0-5) 05/10/19 12:20 Ur Squamous Epith Cells Few /HPF (NEGATIVE) 05/10/19 12:20 Urine Bacteria Trace /HPF (NEGATIVE) 05/10/19 12:20 Ur Culture Indicated? No/not indicated 05/10/19 12:20 Tissue Pathology To follow 05/10/19 13:00 - Assessment and Plan 1: PO laparotomy , lysis of adhesions . rapair of incarcerated incisional hernia ,. dehydration and hyperkalemia .( corrected ). CKD . DM .. to d/c catheter and start full liquid. same PO care.. DVT prophylaxis , OOB . liquid diet . - Problem Patient Problems: Patient Problems Abdominal pain (Acute) R10.9 Incarcerated hernia (Acute) K46.0
--- NOTE | 2019-05-13 10:38 | PCM.PROG ---
Progress Note - Progress Note for Day of Date of Exam: 05/11/19 - Subjective Subjective: WAS ADMITTED FOR TREATMENT OF AN INCARCERATED HERNIA. SHE IS DAY 1 STATUS POST EXPLORATORY LAPAROTOMY, LYSIS OF EXTENSIVE ADHESIONS, PARTIAL OMENTECTOMY, REPAIR OF INCARCERATED HERNIA, AND RELEASE OF BOWEL OBSTRUCTION. TODAY, SHE IS ALERT AND ORIENTED, LYING IN BED ON MORNING ROUNDS. SHE CONTINUES WITH COMPLAINTS OF DIFFUSE ABDOMINAL PAIN AND ALSO REPORTS SHORTNESS OF BREATH. ON EXAMINATION, HEART IS REGULAR IN RATE AND RHYTHM. BILATERAL LUNGS ARE NOTED WITH DIMINISHED LUNG SOUNDS THROUGHOUT. ABDOMEN IS ROUND, SOFT, AND NOTED WITH DIFFUSE TENDERNESS TO PALPATION. THERE IS A TR ANSVERSE SURGICAL WOUND WITH STABLES NOTED. NO DRAINAGE OR S/SX INFECTION NOTED. NORMAL BOWEL SOUNDS ARE NOTED IN ALL QUADRANTS. HER VITALS THIS MORNING ARE: 98.3-105-20-93%-86/51. LABS WERE OBTAINED. ABNORMAL LAB VALUES INCLUDE THE FOLLOWING: WBC 11.7, POITASSIUM 6.7, CHLORIDE 108, CARBON DIOXIDE 15.3, BUN 37, CREATININE 3.54, GLUCOSE 255, CALCIUM 8.1, TOTAL PROTEIN 5.9, ALBUMIN 2.5. A CHEST XRAY WAS OBTAINED THIS MORNING AND REVEALED: Hypoinflation with increasing subsegmental atelectasis or developing infiltrates along the lung bases. Stable left ventricular enlargement. SHE IS CURRENTLY RECEIVING NORMAL SALINE, ZOFRAN IV Q6H PRN, MORPHIN 2MG IV Q4H PRN. TODAY, WE WILL START RESPIRATORY TREATMENTS, LEVAQUN 500MG IV DAILY, WILL BOLUS 1 LITER OF NORMAL SALINE AND GIVEN LASIX 40MG IV X 1 AFTER BOLUS. WE WILL RECHECK HER POTASSIUM AT 1700. OTHERWISE, WE WILL CONTINUE WITH CURRENT PLAN OF CARE. WE WILL HAVE PHYSICAL THERAPY EVALUATE PATIENT. OTHERWISE, WE PLAN TO FOLLOW UP WITH AM LABS AND CONTINUE TO MONITOR. - Past Medical Family Social History Past Med/Fam/Surg Hx: No changes since H&P Allergies: Allergies hydromorphone [From Dilaudid] Allergy (Verified 05/10/19 22:16) HALLUCINATIONS iodine Allergy (Verified 05/10/19 02:26) Fstxckr-Qsz-Qoc Reductase Inhibitor Allergy (Verified 05/10/19 02:26) - Review of Systems ROS: No change since H&P - Vital Signs and I&O's Vital Signs: Temperature 98.5 F Pulse Rate [Left Brachial] 106 Pulse Rate 97 Respiratory Rate 26 Blood Pressure [Right Arm] 92/53 Blood Pressure [Left Arm] 138/70 Blood Pressure 115/71 O2 Sat by Pulse Oximetry 94 Intake and Output: Intake & Output 05/10/19 05/11/19 05/12/19 05/13/19 11:59 11:59 11:59 11:59 Intake Total 2560 / 2560 4058 / 4058 3410 / 3410 Output Total 1585 / 1585 4850 / 4850 2400 / 2400 Balance 975 / 975 -792 / -792 1010 / 1010 - Physical Exam Oriented: Normal Eyes: Normal Ear: Normal Nose: Normal Throat: Normal Respiratory: Generalized, Diminished Cardiovascular: Tachycardia. negative: S3, S4, Murmur : Other (groves in place ) Auscultation: Bowel Sounds: Decreased Palpation: Normal Tenderness: Diffuse (moderate .), RUQ, Moderate. negative: Rebound, Guarding, Rigidity Skin: Normal Musculoskeletal: Normal Psychiatric: Normal Mood Description: Calm Affect: Normal Speech Pattern: Clear, Appropriate - Laboratory and Diagnostics Result Diagrams: 05/13/19 04:02 05/13/19 04:02 Labs: Laboratory WBC 7.6 X10^3/uL (3.6-10.0) 05/13/19 04:02 RBC 3.84 X10^6/uL (3.5-5.4) 05/13/19 04:02 Hgb 12.3 g/dL (12.0-16.0) 05/13/19 04:02 Hct 36.9 % (36.0-47.0) 05/13/19 04:02 MCV 96.1 fL (80.0-100.0) 05/13/19 04:02 MCH 31.9 pg (27.0-34.0) 05/13/19 04:02 MCHC 33.2 g/dL (33.0-35.0) 05/13/19 04:02 RDW 14.8 % (11.6-16.5) 05/13/19 04:02 Plt Count 155 X10^3/uL (150.0-450.0) 05/13/19 04:02 MPV 9.9 fL (7.4-11.0) 05/13/19 04:02 Neut % (Auto) 75.1 % (42.0-75.0) H 05/13/19 04:02 Lymph % (Auto) 15.1 % (21.0-51.0) L 05/13/19 04:02 [place] % (Auto) 6.4 % (0.0-13.0) 05/13/19 04:02 Eos % (Auto) 2.6 % (0.9-2.9) 05/13/19 04:02 Baso % (Auto) 0.8 % (0.2-1.0) 05/13/19 04:02 Neut # (Auto) 5.7 x10^3/uL (2.2-4.8) H 05/13/19 04:02 Lymph # (Auto) 1.2 X10^3/uL (1.3-2.9) L 05/13/19 04:02 [place] # (Auto) 0.5 x10^3/uL (0.3-0.8) 05/13/19 04:02 Eos # (Auto) 0.2 x10^3/uL (0.0-0.2) 05/13/19 04:02 Baso # (Auto) 0.1 X10^3/uL (0.0-0.1) 05/13/19 04:02 Absolute Nucleated RBC 0.0 /100WBC 05/13/19 04:02 PT 14.0 SECONDS (11.8-14.3) 05/10/19 10:49 INR Target Range - 05/10/19 10:49 INR 1.12 (0.8-1.3) 05/10/19 10:49 Sodium 140 mmol/L (136-145) 05/13/19 04:02 Corrected Sodium 141 mmol/L (136-145) 05/13/19 04:02 Potassium 4.6 mmol/L (3.5-5.1) 05/13/19 04:02 Chloride 109 mmol/L (98-107) H 05/13/19 04:02 Carbon Dioxide 17.0 mmol/L (21-32) L 05/13/19 04:02 BUN 39 mg/dL (7-18) H 05/13/19 04:02 Creatinine 1.72 mg/dL (0.55-1.02) H 05/13/19 04:02 Est GFR (MDRD) Af Amer 38 (>60) L 05/13/19 04:02 Est GFR (MDRD) Non-Af 32 (>60) L 05/13/19 04:02 Glucose 138 mg/dL (65-99) H 05/13/19 04:02 POC Glucose (mg/dL) 120 mg/dL (65-99) H 05/13/19 05:15 Calcium 8.2 mg/dL (8.5-10.1) L 05/13/19 04:02 Corrected Calcium 9.7 mg/dL (8.5-10.1) 05/13/19 04:02 Total Bilirubin 0.40 mg/dL (0.2-1.0) 05/13/19 04:02 AST 59 Units/L (15-37) H 05/13/19 04:02 ALT 38 Units/L (12-78) 05/13/19 04:02 Alkaline Phosphatase 58 Units/L (46-116) 05/13/19 04:02 Total Protein 6.0 g/dL (6.4-8.2) L 05/13/19 04:02 Albumin 2.1 g/dL (3.4-5.0) L 05/13/19 04:02 Globulin 3.9 g/dL (2.5-4.5) 05/13/19 04:02 Albumin/Globulin Ratio 0.5 Ratio (1.1-2.1) L 05/13/19 04:02 Lipase 311 Units/L (73-393) 05/10/19 02:56 Specimen Type Catherized urine 05/10/19 12:20 Urine Color Yellow (YELLOW) 05/10/19 12:20 Urine Appearance Slightly hazy (CLEAR) 05/10/19 12:20 Urine pH 5.0 (5.0 - 8.0) 05/10/19 12:20 Ur Specific [place] 1.020 (1.000-1.030) 05/10/19 12:20 Urine Protein Negative (NEGATIVE) 05/10/19 12:20 Urine Glucose (UA) 4+ (NEGATIVE) 05/10/19 12:20 Urine Ketones Negative (NEGATIVE) 05/10/19 12:20 Urine Occult Blood Negative (NEGATIVE) 05/10/19 12:20 Urine Nitrite Negative (NEGATIVE) 05/10/19 12:20 Urine Bilirubin Negative (NEGATIVE) 05/10/19 12:20 Urine Urobilinogen Normal (NORMAL) 05/10/19 12:20 Ur Leukocyte Esterase Negative (NEGATIVE) 05/10/19 12:20 Urine RBC 0-2 /HPF (0-3) 05/10/19 12:20 Urine WBC None seen /HPF (0-5) 05/10/19 12:20 Ur Squamous Epith Cells Few /HPF (NEGATIVE) 05/10/19 12:20 Urine Bacteria Trace /HPF (NEGATIVE) 05/10/19 12:20 Ur Culture Indicated? No/not indicated 05/10/19 12:20 Tissue Pathology To follow 05/10/19 13:00 - Plan (1) Abdominal pain Status: Acute Qualifiers: Abdominal location: left lower quadrant Qualified Code(s): R10.32 - Left lower quadrant pain Plan: STATUS POST HERNIA REPAIR AND LYSIS OF ADHESIONS, NORMAL SALINE AT 75ML/HR, PROTONIX 40MG IV DAILY, MORPHINE 2MG IV Q4H PRN, AND ZOFRAN 4MG IV Q6H PRN, SURGICAL CONSULT, NPO (2) Incarcerated hernia Status: Acute (3) Acute renal failure Status: Acute Qualifiers: Acute renal failure type: unspecified Qualified Code(s): N17.9 - Acute kidney failure, unspecified Plan: NORMAL SALINE BOLUS, THEN LASIX 40MG IV X 1 DOSE, CONTINUE TO MONITOR. (4) Hyperkalemia Status: Acute Plan: NORMAL SALINE BOLUS, THEN LASIX 40MG IV X 1 DOSE, CONTINUE TO MONITOR.
[2019-05-13] MEDS: PEPCID 20 MG IV PREMIX* 20 MG/50 ML BAG IV SCH (10:39)
--- NOTE | 2019-05-13 18:15 | PCM.PROG ---
Progress Note - Progress Note for Day of Date of Exam: 05/12/19 - Subjective Subjective: WAS ADMITTED FOR TREATMENT OF AN INCARCERATED HERNIA, DEHYDRATION, HYPERKALEMIA, AND ACUTE ON CHRONIC KIDNEY DISEASE. SHE IS DAY 1 STATUS POST EXPLORATORY LAPAROTOMY, LYSIS OF EXTENSIVE ADHESIONS, PARTIAL OMENTECTOMY, REPAIR OF INCARCERATED HERNIA, AND RELEASE OF BOWEL OBSTRUCTION. TODAY, SHE IS ALERT AND ORIENTED, LYING IN BED ON MORNING ROUNDS. SHE REPORTS PAIN TO INCISION SITE AND ALSO REPORTS SHORTNESS OF BREATH. ON EXAMINATION, HEART IS REGULAR IN RATE AND RHYTHM. BILATERAL LUNGS ARE NOTED WITH DIMINISHED LUNG SOUNDS THROUGHOUT. ABDOMEN IS ROUND, SOFT, AND NOTED WITH DIFFUSE TENDERNESS TO PALPATION. THERE IS A TRANSVERSE SURGICAL WOUND WITH STABLES NOTED. NO DRAINAGE OR S/SX INFECTION NOTED. NORMAL BOWEL SOUNDS ARE NOTED IN ALL QUADRANTS. HER VITALS THIS MORNING ARE: 98.1-100-19-97%-104/58. LABS WERE OBTAINED. ABNORMAL LAB VALUES INCLUDE THE FOLLOWING: PLT COUNT 127, CHLORIDE 108, CARBON DIOXIDE 19.4, BUN 40, CREATININE 2.71, GLUCOSE 206, CALCIUM 8.1, AST 99, TOTAL PROTEIN 5.7, ALUBMIN 2.1. A CHEST XRAY WAS OBTAINED THIS MORNING AND REVEALED: SHE IS CURRENTLY RECEIVING NORMAL SALINE, LEVAQUIN 500MG IV DAILY, RESPIRATORY TREATMENTS, ZOFRAN IV Q6H PRN, MORPHINE 2MG IV Q4H PRN. WE WILL CONTINUE WITH CURRENT PLAN OF CARE TODAY. PHYSICAL THERAPY WILL CONTINUE TO WORK WITH LAURA. PLANS TO ADVANCE HER DIET TODAY. OTHERWISE, WE PLAN TO FOLLOW UP WITH AM LABS AND CONTINUE TO MONITOR. - Past Medical Family Social History Past Med/Fam/Surg Hx: No changes since H&P Allergies: Allergies hydromorphone [From Dilaudid] Allergy (Verified 05/10/19 22:16) HALLUCINATIONS iodine Allergy (Verified 05/10/19 02:26) Mreguze-Vzk-Trg Reductase Inhibitor Allergy (Verified 05/10/19 02:26) - Review of Systems ROS: No change since H&P - Vital Signs and I&O's Vital Signs: Temperature 98.9 F Pulse Rate [Left Brachial] 106 Pulse Rate 96 Respiratory Rate 21 Blood Pressure [Right Arm] 92/53 Blood Pressure [Left Arm] 138/70 Blood Pressure 138/72 O2 Sat by Pulse Oximetry 98 Intake and Output: Intake & Output 05/11/19 05/12/19 05/13/19 05/14/19 11:59 11:59 11:59 11:59 Intake Total 2560 / 2560 4058 / 4058 3410 / 3410 1120 / 1120 Output Total 1585 / 1585 4850 / 4850 2400 / 2400 1000 / 1000 Balance 975 / 975 -792 / -792 1010 / 1010 120 / 120 - Physical Exam Oriented: Normal Eyes: Normal Ear: Normal Nose: Normal Throat: Normal Respiratory: Generalized, Diminished Cardiovascular: Tachycardia. negative: S3, S4, Murmur : Other (groves in place ) Auscultation: Bowel Sounds: Decreased Tenderness: Diffuse (moderate .), RUQ, Moderate. negative: Rebound, Guarding, Rigidity Skin: Normal Musculoskeletal: Normal Psychiatric: Normal Mood Description: Calm Affect: Normal Speech Pattern: Clear, Appropriate - Laboratory and Diagnostics Result Diagrams: 05/13/19 04:02 05/13/19 04:02 Labs: Laboratory WBC 7.6 X10^3/uL (3.6-10.0) 05/13/19 04:02 RBC 3.84 X10^6/uL (3.5-5.4) 05/13/19 04:02 Hgb 12.3 g/dL (12.0-16.0) 05/13/19 04:02 Hct 36.9 % (36.0-47.0) 05/13/19 04:02 MCV 96.1 fL (80.0-100.0) 05/13/19 04:02 MCH 31.9 pg (27.0-34.0) 05/13/19 04:02 MCHC 33.2 g/dL (33.0-35.0) 05/13/19 04:02 RDW 14.8 % (11.6-16.5) 05/13/19 04:02 Plt Count 155 X10^3/uL (150.0-450.0) 05/13/19 04:02 MPV 9.9 fL (7.4-11.0) 05/13/19 04:02 Neut % (Auto) 75.1 % (42.0-75.0) H 05/13/19 04:02 Lymph % (Auto) 15.1 % (21.0-51.0) L 05/13/19 04:02 [place] % (Auto) 6.4 % (0.0-13.0) 05/13/19 04:02 Eos % (Auto) 2.6 % (0.9-2.9) 05/13/19 04:02 Baso % (Auto) 0.8 % (0.2-1.0) 05/13/19 04:02 Neut # (Auto) 5.7 x10^3/uL (2.2-4.8) H 05/13/19 04:02 Lymph # (Auto) 1.2 X10^3/uL (1.3-2.9) L 05/13/19 04:02 [place] # (Auto) 0.5 x10^3/uL (0.3-0.8) 05/13/19 04:02 Eos # (Auto) 0.2 x10^3/uL (0.0-0.2) 05/13/19 04:02 Baso # (Auto) 0.1 X10^3/uL (0.0-0.1) 05/13/19 04:02 Absolute Nucleated RBC 0.0 /100WBC 05/13/19 04:02 PT 14.0 SECONDS (11.8-14.3) 05/10/19 10:49 INR Target Range - 05/10/19 10:49 INR 1.12 (0.8-1.3) 05/10/19 10:49 Sodium 140 mmol/L (136-145) 05/13/19 04:02 Corrected Sodium 141 mmol/L (136-145) 05/13/19 04:02 Potassium 4.6 mmol/L (3.5-5.1) 05/13/19 04:02 Chloride 109 mmol/L (98-107) H 05/13/19 04:02 Carbon Dioxide 17.0 mmol/L (21-32) L 05/13/19 04:02 BUN 39 mg/dL (7-18) H 05/13/19 04:02 Creatinine 1.72 mg/dL (0.55-1.02) H 05/13/19 04:02 Est GFR (MDRD) Af Amer 38 (>60) L 05/13/19 04:02 Est GFR (MDRD) Non-Af 32 (>60) L 05/13/19 04:02 Glucose 138 mg/dL (65-99) H 05/13/19 04:02 POC Glucose (mg/dL) 119 mg/dL (65-99) H 05/13/19 16:35 Calcium 8.2 mg/dL (8.5-10.1) L 05/13/19 04:02 Corrected Calcium 9.7 mg/dL (8.5-10.1) 05/13/19 04:02 Total Bilirubin 0.40 mg/dL (0.2-1.0) 05/13/19 04:02 AST 59 Units/L (15-37) H 05/13/19 04:02 ALT 38 Units/L (12-78) 05/13/19 04:02 Alkaline Phosphatase 58 Units/L (46-116) 05/13/19 04:02 Total Protein 6.0 g/dL (6.4-8.2) L 05/13/19 04:02 Albumin 2.1 g/dL (3.4-5.0) L 05/13/19 04:02 Globulin 3.9 g/dL (2.5-4.5) 05/13/19 04:02 Albumin/Globulin Ratio 0.5 Ratio (1.1-2.1) L 05/13/19 04:02 Lipase 311 Units/L (73-393) 05/10/19 02:56 Specimen Type Catherized urine 05/10/19 12:20 Urine Color Yellow (YELLOW) 05/10/19 12:20 Urine Appearance Slightly hazy (CLEAR) 05/10/19 12:20 Urine pH 5.0 (5.0 - 8.0) 05/10/19 12:20 Ur Specific [place] 1.020 (1.000-1.030) 05/10/19 12:20 Urine Protein Negative (NEGATIVE) 05/10/19 12:20 Urine Glucose (UA) 4+ (NEGATIVE) 05/10/19 12:20 Urine Ketones Negative (NEGATIVE) 05/10/19 12:20 Urine Occult Blood Negative (NEGATIVE) 05/10/19 12:20 Urine Nitrite Negative (NEGATIVE) 05/10/19 12:20 Urine Bilirubin Negative (NEGATIVE) 05/10/19 12:20 Urine Urobilinogen Normal (NORMAL) 05/10/19 12:20 Ur Leukocyte Esterase Negative (NEGATIVE) 05/10/19 12:20 Urine RBC 0-2 /HPF (0-3) 05/10/19 12:20 Urine WBC None seen /HPF (0-5) 05/10/19 12:20 Ur Squamous Epith Cells Few /HPF (NEGATIVE) 05/10/19 12:20 Urine Bacteria Trace /HPF (NEGATIVE) 05/10/19 12:20 Ur Culture Indicated? No/not indicated 05/10/19 12:20 Tissue Pathology To follow 05/10/19 13:00 - Plan (1) Abdominal pain Status: Acute Qualifiers: Abdominal location: left lower quadrant Qualified Code(s): R10.32 - Left lower quadrant pain Plan: STATUS POST HERNIA REPAIR AND LYSIS OF ADHESIONS, NORMAL SALINE AT 75ML/HR, PROTONIX 40MG IV DAILY, MORPHINE 2MG IV Q4H PRN, AND ZOFRAN 4MG IV Q6H PRN, SURGICAL CONSULT, NPO (2) Incarcerated hernia Status: Acute (3) Acute renal failure Status: Acute Qualifiers: Acute renal failure type: unspecified Qualified Code(s): N17.9 - Acute kidney failure, unspecified Plan: NORMAL SALINE BOLUS, THEN LASIX 40MG IV X 1 DOSE, CONTINUE TO MONITOR. (4) Hyperkalemia Status: Acute Plan: NORMAL SALINE BOLUS, THEN LASIX 40MG IV X 1 DOSE, CONTINUE TO MONITOR.
[2019-05-13] MEDS: TUMS PO PRN (21:03)
[2019-05-13] MEDS: ULTRAM PO PRN (21:03)
[2019-05-14] MEDS: NS 1000 ML 1,000 ML IV SCH ×3 (03:29→19:00)
[2019-05-14] MEDS ORDERED: BUTT CREAM (COMPOUND) TOP PRN (03:58)
[2019-05-14] MEDS: XANAX PO SCH ×3 (05:20→21:22)
--- NOTE | 2019-05-14 06:20 | RAD ---
HISTORY: Shortness of breath Study: Chest AP portable Comparison: 05/13/2019 Findings: The heart is mildly enlarged. No congestive heart failure is noted. The lungs are hypo inflated but free of acute infiltrates. No pleural effusions are identified. The bony thorax is unremarkable. IMPRESSION: Continued mild cardiomegaly without congestive heart failure Lungs remain hypo inflated but clear Reported By:
[2019-05-14 06:36] LABS: BASOPHILS % (AUTO) 0.7 % (0.2-1.0); EOSINOPHILS % (AUTO) 0.7 % (0.9-2.9); HEMATOCRIT 38.6 % (36.0-47.0); HEMOGLOBIN 12.6 g/dL (12.0-16.0); LYMPHOCYTES # (AUTO) 0.8 X10^3/uL (1.3-2.9); LYMPHOCYTES % (AUTO) 11.4 % (21.0-51.0); MEAN CORPUSCULAR HEMOGLOBIN 31.8 pg (27.0-34.0); MEAN CORPUSCULAR HGB CONC 32.7 g/dL (33.0-35.0); MEAN CORPUSCULAR VOLUME 97.2 fL (80.0-100.0); MEAN PLATELET VOLUME 9.9 fL (7.4-11.0); MONOCYTES # (AUTO) 0.5 x10^3/uL (0.3-0.8); MONOCYTES % (AUTO) 6.3 % (0.0-13.0); NEUTROPHILS # (AUTO) 5.8 x10^3/uL (2.2-4.8); NEUTROPHILS % (AUTO) 80.9 % (42.0-75.0); PLATELET COUNT 175 X10^3/uL (150.0-450.0); RED BLOOD COUNT 3.97 X10^6/uL (3.5-5.4); RED CELL DISTRIBUTION WIDTH 14.7 % (11.6-16.5); WHITE BLOOD COUNT 7.1 X10^3/uL (3.6-10.0)
[2019-05-14 06:41] LABS: CALCIUM 8.5 mg/dL (8.5-10.1); CARBON DIOXIDE 15.6 mmol/L (21-32); COR CA(FOR HYPOALB) 10.1 mg/dL (8.5-10.1); CREATININE 1.45 mg/dL (0.55-1.02)
[2019-05-14] MEDS ORDERED: ZOLOFT PO ONE (09:54)
[2019-05-14] MEDS: DUONEB 0.5 MG/3 MG NEB SCH ×4 (09:55→21:27)
[2019-05-14] MEDS: PROTONIX INJ 40 MG VIAL IVP SCH ×2 (10:29→21:22)
[2019-05-14] MEDS: ZOLOFT PO SCH (10:30)
[2019-05-14] MEDS: WELLBUTRIN XL 150 MG (DAILY) PO SCH (10:31)
[2019-05-14] MEDS: SYNTHROID 50 mcg TAB PO SCH (10:31)
[2019-05-14] MEDS: ULTRAM PO PRN (10:31)
[2019-05-14] MEDS: LEVAQUIN PREMIX IV 500 MG 500 MG/100 ML BAG IV SCH (10:33)
[2019-05-14] MEDS: LOVENOX INJ 30 MG SYR SC SCH (10:33)
[2019-05-14] MEDS: PEPCID 20 MG IV PREMIX* 20 MG/50 ML BAG IV SCH (10:33)
[2019-05-14] MEDS: MORPHINE SULFATE INJ 2 MG INJ IVP PRN (11:52)
[2019-05-15] MEDS: MORPHINE SULFATE INJ 2 MG INJ IVP PRN ×4 (02:12→23:50)
[2019-05-15] MEDS: NS 1000 ML 1,000 ML IV SCH ×6 (02:14→23:55)
[2019-05-15] MEDS: ULTRAM PO PRN ×2 (06:23→21:06)
[2019-05-15] MEDS: XANAX PO SCH ×3 (06:23→21:04)
--- NOTE | 2019-05-15 06:37 | RAD ---
Examination: Portable AP chest History: SOB Comparison 05/14/2019 Findings: Continued cardiomegaly with low volume lungs. There is no definite consolidation, pneumothorax or large pleural effusion. Impression: No change in appearance of the chest since 05/14/2019. Reported By:
[2019-05-15] MEDS: DUONEB 0.5 MG/3 MG NEB SCH (08:33)
[2019-05-15] MEDS ORDERED: ZOLOFT PO ONE (09:15)
[2019-05-15] MEDS: WELLBUTRIN XL 150 MG (DAILY) PO SCH (09:27)
[2019-05-15] MEDS: LOVENOX INJ 30 MG SYR SC SCH (09:27)
[2019-05-15] MEDS: LEVAQUIN PREMIX IV 500 MG 500 MG/100 ML BAG IV SCH (09:27)
[2019-05-15] MEDS: PEPCID 20 MG IV PREMIX* 20 MG/50 ML BAG IV SCH (09:27)
[2019-05-15] MEDS: ZOLOFT PO SCH (09:28)
[2019-05-15] MEDS: PROTONIX INJ 40 MG VIAL IVP SCH ×2 (09:29→21:04)
[2019-05-15] MEDS: SYNTHROID 50 mcg TAB PO SCH (09:29)
[2019-05-15 10:05] LABS: BASOPHILS # (AUTO) 0.1 X10^3/uL (0.0-0.1); BASOPHILS % (AUTO) 0.9 % (0.2-1.0); EOSINOPHILS # (AUTO) 0.1 x10^3/uL (0.0-0.2); EOSINOPHILS % (AUTO) 2.1 % (0.9-2.9); HEMATOCRIT 35.7 % (36.0-47.0); HEMOGLOBIN 12.1 g/dL (12.0-16.0); LYMPHOCYTES # (AUTO) 1.2 X10^3/uL (1.3-2.9); LYMPHOCYTES % (AUTO) 17.1 % (21.0-51.0); MEAN CORPUSCULAR HEMOGLOBIN 31.8 pg (27.0-34.0); MEAN CORPUSCULAR HGB CONC 33.8 g/dL (33.0-35.0); MEAN CORPUSCULAR VOLUME 94.1 fL (80.0-100.0); MEAN PLATELET VOLUME 8.6 fL (7.4-11.0); MONOCYTES # (AUTO) 0.6 x10^3/uL (0.3-0.8); MONOCYTES % (AUTO) 8.4 % (0.0-13.0); NEUTROPHILS # (AUTO) 4.9 x10^3/uL (2.2-4.8); NEUTROPHILS % (AUTO) 71.5 % (42.0-75.0); PLATELET COUNT 191 X10^3/uL (150.0-450.0); RED BLOOD COUNT 3.79 X10^6/uL (3.5-5.4); RED CELL DISTRIBUTION WIDTH 14.4 % (11.6-16.5); WHITE BLOOD COUNT 6.8 X10^3/uL (3.6-10.0)
[2019-05-15 10:12] LABS: ALBUMIN 2.1 g/dL (3.4-5.0); CALCIUM 8.4 mg/dL (8.5-10.1); CARBON DIOXIDE 16.8 mmol/L (21-32); COR CA(FOR HYPOALB) 9.9 mg/dL (8.5-10.1); CREATININE 1.18 mg/dL (0.55-1.02); TOTAL PROTEIN 5.6 g/dL (6.4-8.2)
[2019-05-15 10:23] LABS: PLATELET MORPHOLOGY COMMENT NORMAL (NORMAL)
[2019-05-15] MEDS: Atrovent NEB TX 0.02% NEB SCH ×4 (12:08→22:16)
--- NOTE | 2019-05-15 13:40 | PCM.PROG ---
Progress Note - Progress Note for Day of Date of Exam: 05/13/19 - Subjective Subjective: WAS ADMITTED FOR TREATMENT OF AN INCARCERATED HERNIA, DEHYDRATION, HYPERKALEMIA, AND ACUTE ON CHRONIC KIDNEY DISEASE. SHE IS DAY 1 STATUS POST EXPLORATORY LAPAROTOMY, LYSIS OF EXTENSIVE ADHESIONS, PARTIAL OMENTECTOMY, REPAIR OF INCARCERATED HERNIA, AND RELEASE OF BOWEL OBSTRUCTION. TODAY, SHE IS ALERT AND ORIENTED, LYING IN BED ON MORNING ROUNDS. SHE CONTINUES TO REPORT PAIN TO INCISION SITE. SHE STATES THAT SHORTNESS OF BREATH HAS IMPROVED SINCE YESTERDAY. ON EXAMINATION, HEART IS REGULAR IN RATE AND RHYTHM. BILATERAL LUNGS ARE NOTED WITH DIMINISHED LUNG SOUNDS THROUGHOUT. ABDOMEN IS ROUND, SOFT, AND NOTED WITH DIFFUSE TENDERNESS TO PALPATION. THERE IS A TRANSVERSE SURGICAL WOUND WITH STABLES NOTED. NO DRAINAGE OR S/SX INFECTION NOTED. SHE IS USING AN ABDOMINAL BINDER. NORMAL BOWEL SOUNDS ARE NOTED IN ALL QUADRANTS. HER VITALS THIS MORNING ARE: 98.3-100-17-98%-128/74. LABS WERE OBTAINED. ABNORMAL LAB VALUES INCLUDE THE FOLLOWING: CHLORIDE 109, CARBON DIOXIDE 17.0, BUN 39, CREATININE 1.72, GLUCOSE 138, CALCIUM 8.2, AST 59, TOTAL PROTEIN 6.0, ALBUMIN 2.1. A CHEST XRAY WAS OBTAINED THIS MORNING AND REVEALED: Continued cardiomegaly without congestive heart failure. Continued hypo inflation. Subsegmental atelectasis right lung base. SHE IS CURRENTLY RECEIVING NORMAL SALINE, LEVAQUIN 500MG IV DAILY, RESPIRATORY TREATMENTS, ZOFRAN IV Q6H PRN, MORPHINE 2MG IV Q4H PRN. WE WILL CONTINUE WITH CURRENT PLAN OF CARE TODAY. PHYSICAL THERAPY WILL CONTINUE TO WORK WITH RUBYTOS[place]. OTHERWISE, WE PLAN TO FOLLOW UP WITH AM LABS AND CONTINUE TO MONITOR. - Past Medical Family Social History Past Med/Fam/Surg Hx: No changes since H&P Allergies: Allergies hydromorphone [From Dilaudid] Allergy (Verified 05/10/19 22:16) HALLUCINATIONS iodine Allergy (Verified 05/10/19 02:26) [place]-Slp-Eml Reductase Inhibitor Allergy (Verified 05/10/19 02:26) - Review of Systems ROS: No change since H&P - Vital Signs and I&O's Vital Signs: Temperature 97 F Pulse Rate [Left Brachial] 83 Pulse Rate 91 Respiratory Rate 20 Blood Pressure [Right Arm] 140/70 Blood Pressure [Left Arm] 138/70 Blood Pressure 152/82 O2 Sat by Pulse Oximetry 96 Intake and Output: Intake & Output 05/13/19 05/14/19 05/15/19 05/16/19 11:59 11:59 11:59 11:59 Intake Total 3410 / 3410 3139 / 3139 2943 / 2943 Output Total 2400 / 2400 2700 / 2700 Balance 1010 / 1010 439 / 439 2943 / 2943 - Physical Exam Oriented: Normal Eyes: Normal Ear: Normal Nose: Normal Throat: Normal Respiratory: Generalized, Diminished Cardiovascular: Tachycardia. negative: S3, S4, Murmur : Other (groves in place ) Auscultation: Bowel Sounds: Decreased Palpation: Normal Tenderness: Diffuse (moderate .), RUQ, Moderate. negative: Rebound, Guarding, Rigidity Skin: Normal Musculoskeletal: Normal Psychiatric: Normal Mood Description: Calm Affect: Normal Speech Pattern: Appropriate, Slurred - Laboratory and Diagnostics Result Diagrams: 05/15/19 09:55 05/15/19 09:55 Labs: Laboratory WBC 6.8 X10^3/uL (3.6-10.0) 05/15/19 09:55 RBC 3.79 X10^6/uL (3.5-5.4) 05/15/19 09:55 Hgb 12.1 g/dL (12.0-16.0) 05/15/19 09:55 Hct 35.7 % (36.0-47.0) L 05/15/19 09:55 MCV 94.1 fL (80.0-100.0) 05/15/19 09:55 MCH 31.8 pg (27.0-34.0) 05/15/19 09:55 MCHC 33.8 g/dL (33.0-35.0) 05/15/19 09:55 RDW 14.4 % (11.6-16.5) 05/15/19 09:55 Plt Count 191 X10^3/uL (150.0-450.0) 05/15/19 09:55 Plt Count Comment Adequate (ADEQUATE) 05/15/19 09:55 MPV 8.6 fL (7.4-11.0) 05/15/19 09:55 Neut % (Auto) 71.5 % (42.0-75.0) 05/15/19 09:55 Lymph % (Auto) 17.1 % (21.0-51.0) L 05/15/19 09:55 [place] % (Auto) 8.4 % (0.0-13.0) 05/15/19 09:55 Eos % (Auto) 2.1 % (0.9-2.9) 05/15/19 09:55 Baso % (Auto) 0.9 % (0.2-1.0) 05/15/19 09:55 Neut # (Auto) 4.9 x10^3/uL (2.2-4.8) H 05/15/19 09:55 Lymph # (Auto) 1.2 X10^3/uL (1.3-2.9) L 05/15/19 09:55 [place] # (Auto) 0.6 x10^3/uL (0.3-0.8) 05/15/19 09:55 Eos # (Auto) 0.1 x10^3/uL (0.0-0.2) 05/15/19 09:55 Baso # (Auto) 0.1 X10^3/uL (0.0-0.1) 05/15/19 09:55 Absolute Nucleated RBC 0.1 /100WBC 05/15/19 09:55 Total Counted 100 05/15/19 09:55 Neutrophils % (Manual) 72 % (39-76) 05/15/19 09:55 Lymphocytes % (Manual) 23 % (13-43) 05/15/19 09:55 Monocytes % (Manual) 3 % (4-9) L 05/15/19 09:55 Eosinophils % (Manual) 2 % (0-6) 05/15/19 09:55 Plt Morphology Comment Normal (NORMAL) 05/15/19 09:55 RBC Morphology Normal (NORMAL) 05/15/19 09:55 PT 14.0 SECONDS (11.8-14.3) 05/10/19 10:49 INR Target Range - 05/10/19 10:49 INR 1.12 (0.8-1.3) 05/10/19 10:49 Sodium 137 mmol/L (136-145) 05/15/19 09:55 Corrected Sodium 138 mmol/L (136-145) 05/15/19 09:55 Potassium 4.1 mmol/L (3.5-5.1) 05/15/19 09:55 Chloride 106 mmol/L (98-107) 05/15/19 09:55 Carbon Dioxide 16.8 mmol/L (21-32) L 05/15/19 09:55 BUN 36 mg/dL (7-18) H 05/15/19 09:55 Creatinine 1.18 mg/dL (0.55-1.02) H 05/15/19 09:55 Est GFR (MDRD) Af Amer 59 (>60) 05/15/19 09:55 Est GFR (MDRD) Non-Af 49 (>60) L 05/15/19 09:55 Glucose 159 mg/dL (65-99) H 05/15/19 09:55 POC Glucose (mg/dL) 160 mg/dL (65-99) H 05/14/19 11:45 Calcium 8.4 mg/dL (8.5-10.1) L 05/15/19 09:55 Corrected Calcium 9.9 mg/dL (8.5-10.1) 05/15/19 09:55 Total Bilirubin 0.40 mg/dL (0.2-1.0) 05/15/19 09:55 AST 26 Units/L (15-37) 05/15/19 09:55 ALT 26 Units/L (12-78) 05/15/19 09:55 Alkaline Phosphatase 55 Units/L (46-116) 05/15/19 09:55 Total Protein 5.6 g/dL (6.4-8.2) L 05/15/19 09:55 Albumin 2.1 g/dL (3.4-5.0) L 05/15/19 09:55 Globulin 3.5 g/dL (2.5-4.5) 05/15/19 09:55 Albumin/Globulin Ratio 0.6 Ratio (1.1-2.1) L 05/15/19 09:55 Lipase 311 Units/L (73-393) 05/10/19 02:56 Specimen Type Catherized urine 05/10/19 12:20 Urine Color Yellow (YELLOW) 05/10/19 12:20 Urine Appearance Slightly hazy (CLEAR) 05/10/19 12:20 Urine pH 5.0 (5.0 - 8.0) 05/10/19 12:20 Ur Specific [place] 1.020 (1.000-1.030) 05/10/19 12:20 Urine Protein Negative (NEGATIVE) 05/10/19 12:20 Urine Glucose (UA) 4+ (NEGATIVE) 05/10/19 12:20 Urine Ketones Negative (NEGATIVE) 05/10/19 12:20 Urine Occult Blood Negative (NEGATIVE) 05/10/19 12:20 Urine Nitrite Negative (NEGATIVE) 05/10/19 12:20 Urine Bilirubin Negative (NEGATIVE) 05/10/19 12:20 Urine Urobilinogen Normal (NORMAL) 05/10/19 12:20 Ur Leukocyte Esterase Negative (NEGATIVE) 05/10/19 12:20 Urine RBC 0-2 /HPF (0-3) 05/10/19 12:20 Urine WBC None seen /HPF (0-5) 05/10/19 12:20 Ur Squamous Epith Cells Few /HPF (NEGATIVE) 05/10/19 12:20 Urine Bacteria Trace /HPF (NEGATIVE) 05/10/19 12:20 Ur Culture Indicated? No/not indicated 05/10/19 12:20 Tissue Pathology To follow 05/10/19 13:00 - Plan (1) Abdominal pain Status: Acute Qualifiers: Abdominal location: left lower quadrant Qualified Code(s): R10.32 - Left lower quadrant pain Plan: STATUS POST HERNIA REPAIR AND LYSIS OF ADHESIONS, NORMAL SALINE AT 75ML/HR, PROTONIX 40MG IV DAILY, MORPHINE 2MG IV Q4H PRN, AND ZOFRAN 4MG IV Q6H PRN, SURGICAL CONSULT, NPO (2) Incarcerated hernia Status: Acute (3) Acute renal failure Status: Acute Qualifiers: Acute renal failure type: unspecified Qualified Code(s): N17.9 - Acute kidney failure, unspecified Plan: NORMAL SALINE BOLUS, THEN LASIX 40MG IV X 1 DOSE, CONTINUE TO MONITOR. (4) Hyperkalemia Status: Acute Plan: NORMAL SALINE BOLUS, THEN LASIX 40MG IV X 1 DOSE, CONTINUE TO MONITOR.
--- NOTE | 2019-05-15 15:10 | PCM.PROG ---
Progress Note - Progress Note for Day of Date of Exam: 05/14/19 - Subjective Subjective: WAS ADMITTED FOR TREATMENT OF AN INCARCERATED HERNIA, DEHYDRATION, HYPERKALEMIA, AND ACUTE ON CHRONIC KIDNEY DISEASE. SHE IS DAY 2 STATUS POST EXPLORATORY LAPAROTOMY, LYSIS OF EXTENSIVE ADHESIONS, PARTIAL OMENTECTOMY, REPAIR OF INCARCERATED HERNIA, AND RELEASE OF BOWEL OBSTRUCTION. TODAY, SHE IS ALERT AND ORIENTED, LYING IN BED ON MORNING ROUNDS. SHE CONTINUES TO REPORT PAIN TO INCISION SITE. ON EXAMINATION, HEART IS REGULAR IN RATE AND RHYTHM. BILATERAL LUNGS ARE NOTED WITH DIMINISHED LUNG SOUNDS THROUGHOUT. ABDOMEN IS ROUND, SOFT, AND NOTED WITH DIFFUSE TENDERNESS TO PALPATION. THERE IS A TRANSVERSE SURGICAL WOUND WITH STABLES NOTED. NO DRAINAGE OR S/SX INFECTION NOTED. SHE IS USING AN ABDOMINAL BINDER. NORMAL BOWEL SOUNDS ARE NOTED IN ALL QUADRANTS. HER VITALS THIS MORNING ARE: 98.4-92-17-99%-120/71. LABS WERE OBTAINED. ABNORMAL LAB VALUES INCLUDE THE FOLLOWING: CARBON DIOXIDE 15.6, BUN 40, CREATININE 1.45, GLUCOSE 206, TOTAL PROTEIN 6.0, ALBUMIN 2.0. A CHEST XRAY W OBTAINED THIS MORNING AND REVEALED: Continued mild cardiomegaly without congestive heart failure. Lungs remain hypo inflated but clear. SHE IS CURRENTLY RECEIVING NORMAL SALINE, LEVAQUIN 500MG IV DAILY, RESPIRATORY TREATMENTS, ZOFRAN IV Q6H PRN, MORPHINE 2MG IV Q4H PRN. WE WILL CONTINUE WITH CURRENT PLAN OF CARE TODAY. PHYSICAL THERAPY WILL CONTINUE TO WORK WITH [place]. OTHERWISE, WE PLAN TO FOLLOW UP WITH AM LABS AND CONTINUE TO MONITOR. - Past Medical Family Social History Past Med/Fam/Surg Hx: No changes since H&P Allergies: Allergies hydromorphone [From Dilaudid] Allergy (Verified 05/10/19 22:16) HALLUCINATIONS iodine Allergy (Verified 05/10/19 02:26) Dptximn-Xbw-Hsa Reductase Inhibitor Allergy (Verified 05/10/19 02:26) - Review of Systems ROS: No change since H&P - Vital Signs and I&O's Vital Signs: Temperature 97 F Pulse Rate [Left Brachial] 83 Pulse Rate 91 Respiratory Rate 20 Blood Pressure [Right Arm] 140/70 Blood Pressure [Left Arm] 138/70 Blood Pressure 152/82 O2 Sat by Pulse Oximetry 96 Intake and Output: Intake & Output 09/12/05/14/19 05/15/19 05/16/19 11:59 11:59 11:59 11:59 Intake Total 3410 / 3410 3139 / 3139 2943 / 2943 Output Total 2400 / 2400 2700 / 2700 Balance 1010 / 1010 439 / 439 2943 / 2943 - Physical Exam Oriented: Normal Eyes: Normal Ear: Normal Nose: Normal Throat: Normal Respiratory: Generalized, Diminished Cardiovascular: Tachycardia. negative: S3, S4, Murmur : Other (groves in place ) Auscultation: Bowel Sounds: Decreased Palpation: Normal Tenderness: Diffuse (moderate .), Moderate. negative: Rebound, Guarding, Rigidity Skin: Normal Musculoskeletal: Normal Psychiatric: Normal Mood Description: Calm Affect: Normal Speech Pattern: Appropriate, Slurred - Laboratory and Diagnostics Result Diagrams: 05/15/19 09:55 05/15/19 09:55 Labs: Laboratory WBC 6.8 X10^3/uL (3.6-10.0) 05/15/19 09:55 RBC 3.79 X10^6/uL (3.5-5.4) 05/15/19 09:55 Hgb 12.1 g/dL (12.0-16.0) 05/15/19 09:55 Hct 35.7 % (36.0-47.0) L 05/15/19 09:55 MCV 94.1 fL (80.0-100.0) 05/15/19 09:55 MCH 31.8 pg (27.0-34.0) 05/15/19 09:55 MCHC 33.8 g/dL (33.0-35.0) 05/15/19 09:55 RDW 14.4 % (11.6-16.5) 05/15/19 09:55 Plt Count 191 X10^3/uL (150.0-450.0) 05/15/19 09:55 Plt Count Comment Adequate (ADEQUATE) 05/15/19 09:55 MPV 8.6 fL (7.4-11.0) 05/15/19 09:55 Neut % (Auto) 71.5 % (42.0-75.0) 05/15/19 09:55 Lymph % (Auto) 17.1 % (21.0-51.0) L 05/15/19 09:55 [place] % (Auto) 8.4 % (0.0-13.0) 05/15/19 09:55 Eos % (Auto) 2.1 % (0.9-2.9) 05/15/19 09:55 Baso % (Auto) 0.9 % (0.2-1.0) 05/15/19 09:55 Neut # (Auto) 4.9 x10^3/uL (2.2-4.8) H 05/15/19 09:55 Lymph # (Auto) 1.2 X10^3/uL (1.3-2.9) L 05/15/19 09:55 [place] # (Auto) 0.6 x10^3/uL (0.3-0.8) 05/15/19 09:55 Eos # (Auto) 0.1 x10^3/uL (0.0-0.2) 05/15/19 09:55 Baso # (Auto) 0.1 X10^3/uL (0.0-0.1) 05/15/19 09:55 Absolute Nucleated RBC 0.1 /100WBC 05/15/19 09:55 Total Counted 100 05/15/19 09:55 Neutrophils % (Manual) 72 % (39-76) 05/15/19 09:55 Lymphocytes % (Manual) 23 % (13-43) 05/15/19 09:55 Monocytes % (Manual) 3 % (4-9) L 05/15/19 09:55 Eosinophils % (Manual) 2 % (0-6) 05/15/19 09:55 Plt Morphology Comment Normal (NORMAL) 05/15/19 09:55 RBC Morphology Normal (NORMAL) 05/15/19 09:55 PT 14.0 SECONDS (11.8-14.3) 05/10/19 10:49 INR Target Range - 05/10/19 10:49 INR 1.12 (0.8-1.3) 05/10/19 10:49 Sodium 137 mmol/L (136-145) 05/15/19 09:55 Corrected Sodium 138 mmol/L (136-145) 05/15/19 09:55 Potassium 4.1 mmol/L (3.5-5.1) 05/15/19 09:55 Chloride 106 mmol/L (98-107) 05/15/19 09:55 Carbon Dioxide 16.8 mmol/L (21-32) L 05/15/19 09:55 BUN 36 mg/dL (7-18) H 05/15/19 09:55 Creatinine 1.18 mg/dL (0.55-1.02) H 05/15/19 09:55 Est GFR (MDRD) Af Amer 59 (>60) 05/15/19 09:55 Est GFR (MDRD) Non-Af 49 (>60) L 05/15/19 09:55 Glucose 159 mg/dL (65-99) H 05/15/19 09:55 POC Glucose (mg/dL) 160 mg/dL (65-99) H 05/14/19 11:45 Calcium 8.4 mg/dL (8.5-10.1) L 05/15/19 09:55 Corrected Calcium 9.9 mg/dL (8.5-10.1) 05/15/19 09:55 Total Bilirubin 0.40 mg/dL (0.2-1.0) 05/15/19 09:55 AST 26 Units/L (15-37) 05/15/19 09:55 ALT 26 Units/L (12-78) 05/15/19 09:55 Alkaline Phosphatase 55 Units/L (46-116) 05/15/19 09:55 Total Protein 5.6 g/dL (6.4-8.2) L 05/15/19 09:55 Albumin 2.1 g/dL (3.4-5.0) L 05/15/19 09:55 Globulin 3.5 g/dL (2.5-4.5) 05/15/19 09:55 Albumin/Globulin Ratio 0.6 Ratio (1.1-2.1) L 05/15/19 09:55 Lipase 311 Units/L (73-393) 05/10/19 02:56 Specimen Type Catherized urine 05/10/19 12:20 Urine Color Yellow (YELLOW) 05/10/19 12:20 Urine Appearance Slightly hazy (CLEAR) 05/10/19 12:20 Urine pH 5.0 (5.0 - 8.0) 05/10/19 12:20 Ur Specific [place] 1.020 (1.000-1.030) 05/10/19 12:20 Urine Protein Negative (NEGATIVE) 05/10/19 12:20 Urine Glucose (UA) 4+ (NEGATIVE) 05/10/19 12:20 Urine Ketones Negative (NEGATIVE) 05/10/19 12:20 Urine Occult Blood Negative (NEGATIVE) 05/10/19 12:20 Urine Nitrite Negative (NEGATIVE) 05/10/19 12:20 Urine Bilirubin Negative (NEGATIVE) 05/10/19 12:20 Urine Urobilinogen Normal (NORMAL) 05/10/19 12:20 Ur Leukocyte Esterase Negative (NEGATIVE) 05/10/19 12:20 Urine RBC 0-2 /HPF (0-3) 05/10/19 12:20 Urine WBC None seen /HPF (0-5) 05/10/19 12:20 Ur Squamous Epith Cells Few /HPF (NEGATIVE) 05/10/19 12:20 Urine Bacteria Trace /HPF (NEGATIVE) 05/10/19 12:20 Ur Culture Indicated? No/not indicated 05/10/19 12:20 Tissue Pathology To follow 05/10/19 13:00 - Plan (1) Abdominal pain Status: Acute Qualifiers: Abdominal location: left lower quadrant Qualified Code(s): R10.32 - Left lower quadrant pain Plan: STATUS POST HERNIA REPAIR AND LYSIS OF ADHESIONS, NORMAL SALINE AT 75ML/HR, PROTONIX 40MG IV DAILY, MORPHINE 2MG IV Q4H PRN, AND ZOFRAN 4MG IV Q6H PRN, SURGICAL CONSULT, NPO (2) Incarcerated hernia Status: Acute (3) Acute renal failure Status: Acute Qualifiers: Acute renal failure type: unspecified Qualified Code(s): N17.9 - Acute kidney failure, unspecified Plan: IV FLUIDS, CONTINUE TO MONITOR. (4) Hyperkalemia Status: Acute Plan: IV FLUIDS, CONTINUE TO MONITOR.
[2019-05-16] MEDS: NS 1000 ML 1,000 ML IV SCH ×5 (03:43→20:39)
[2019-05-16] MEDS: MORPHINE SULFATE INJ 2 MG INJ IVP PRN ×3 (04:13→20:22)
[2019-05-16 05:38] LABS: BASOPHILS # (AUTO) 0.1 X10^3/uL (0.0-0.1); BASOPHILS % (AUTO) 1.1 % (0.2-1.0); EOSINOPHILS # (AUTO) 0.2 x10^3/uL (0.0-0.2); HEMOGLOBIN 12.4 g/dL (12.0-16.0); LYMPHOCYTES # (AUTO) 1.4 X10^3/uL (1.3-2.9); LYMPHOCYTES % (AUTO) 17.6 % (21.0-51.0); MEAN CORPUSCULAR HEMOGLOBIN 31.8 pg (27.0-34.0); MEAN CORPUSCULAR HGB CONC 33.6 g/dL (33.0-35.0); MEAN CORPUSCULAR VOLUME 94.7 fL (80.0-100.0); MEAN PLATELET VOLUME 9.1 fL (7.4-11.0); MONOCYTES # (AUTO) 0.7 x10^3/uL (0.3-0.8); MONOCYTES % (AUTO) 8.6 % (0.0-13.0); NEUTROPHILS # (AUTO) 5.5 x10^3/uL (2.2-4.8); NEUTROPHILS % (AUTO) 70.7 % (42.0-75.0); PLATELET COUNT 202 X10^3/uL (150.0-450.0); RED CELL DISTRIBUTION WIDTH 14.3 % (11.6-16.5); WHITE BLOOD COUNT 7.8 X10^3/uL (3.6-10.0)
[2019-05-16 05:48] LABS: ALANINE AMINOTRANSFERASE 25 Units/L (12-78); ALKALINE PHOSPHATASE 52 Units/L (46-116); ASPARTATE AMINO TRANSFERASE 31 Units/L (15-37); BLOOD UREA NITROGEN 32 mg/dL (7-18); CALCIUM 8.4 mg/dL (8.5-10.1); CARBON DIOXIDE 16.9 mmol/L (21-32); CHLORIDE 104 mmol/L (98-107); COR NA(FOR HYPERGLY) 135 mmol/L (136-145); CREATININE 1.08 mg/dL (0.55-1.02); SODIUM 135 mmol/L (136-145); TOTAL PROTEIN 5.5 g/dL (6.4-8.2); eGFR NON BLACK RACES 54 (>60)
[2019-05-16] MEDS: XANAX PO SCH ×3 (05:55→21:16)
[2019-05-16 06:09] LABS: BAND NEUTROPHILS % 2 % (0-10); PLATELET MORPHOLOGY COMMENT NORMAL (NORMAL)
[2019-05-16] MEDS ORDERED: ZOLOFT PO ONE (07:56)
[2019-05-16] MEDS: Atrovent NEB TX 0.02% NEB SCH ×5 (08:35→20:22)
[2019-05-16] MEDS: PEPCID 20 MG IV PREMIX* 20 MG/50 ML BAG IV SCH (08:37)
[2019-05-16] MEDS: LOVENOX INJ 30 MG SYR SC SCH (08:38)
[2019-05-16] MEDS: WELLBUTRIN XL 150 MG (DAILY) PO SCH (08:39)
[2019-05-16] MEDS: ZOLOFT PO SCH (08:39)
[2019-05-16] MEDS: SYNTHROID 50 mcg TAB PO SCH (08:39)
[2019-05-16] MEDS: PROTONIX INJ 40 MG VIAL IVP SCH ×2 (08:40→20:23)
[2019-05-16] MEDS: LEVAQUIN PREMIX IV 500 MG 500 MG/100 ML BAG IV SCH ×2 (08:48→11:17)
[2019-05-16] MEDS: WELCHOL PO SCH ×2 (11:08→16:33)
--- NOTE | 2019-05-16 12:09 | RAD ---
HISTORY: Abdominal pain Study: KUB Comparison: 05/10/2019 Findings: Evaluation of the abdomen demonstrates a nonspecific but nonobstructive bowel gas pattern with air-filled loops of small bowel and distal colonic gas noted to be present. Skin jana overlying the right paramedian abdomen are noted. No pathological soft tissue mass or calcification can be observed. The bony structures are grossly intact. IMPRESSION: A nonspecific bowel gas pattern is observed with postoperative changes overlying the right paramedian abdomen. Reported By:
--- NOTE | 2019-05-16 16:31 | PCM.PROG ---
Progress Note - Progress Note for Day of Date of Exam: 05/15/19 - Subjective Subjective: WAS ADMITTED FOR TREATMENT OF AN INCARCERATED HERNIA, DEHYDRATION, HYPERKALEMIA, AND ACUTE ON CHRONIC KIDNEY DISEASE. SHE IS DAY 3 STATUS POST EXPLORATORY LAPAROTOMY, LYSIS OF EXTENSIVE ADHESIONS, PARTIAL OMENTECTOMY, REPAIR OF INCARCERATED HERNIA, AND RELEASE OF BOWEL OBSTRUCTION. TODAY, SHE IS ALERT AND ORIENTED, LYING IN BED ON MORNING ROUNDS. SHE CONTINUES TO REPORT MILD PAIN, BUT REPORTS IMPROVEMENT SINCE YESTERDAY. ON EXAMINATION, HEART IS REGULAR IN RATE AND RHYTHM. BILATERAL LUNGS ARE NOTED WITH DIMINISHED LUNG SOUNDS THROUGHOUT. ABDOMEN IS ROUND, SOFT, AND NOTED WITH DIFFUSE TENDERNESS TO PALPATION. THERE IS A TRANSVERSE SURGICAL WOUND WITH STABLES NOTED. NO DRAINAGE OR S/SX INFECTION NOTED. SHE IS USING AN ABDOMINAL BINDER. NORMAL BOWEL SOUNDS ARE NOTED IN ALL QUADRANTS. HER VITALS THIS MORNING ARE: 98.3-86-20-95%-119/57. LABS WERE OBTAINED. ABNORMAL LAB VALUES INCLUDE THE FOLLOWING: HCT 35.7, CARBON DIOXIDE 16.8, BUN 36, CREATININE 1.18, GLUCOSE 159, CALCIUM 8.4, TOTAL PROTEIN 5.6, ALBUMIN 2.1. A CHEST XRAY WAS OBTAINED THIS MORNING AND REVEALED: No change in appearance of the chest since 05/14/2019. SHE IS CURRENTLY RECEIVING NORMAL SALINE, LEVAQUIN 500MG IV DAILY, RESPIRATORY TREATMENTS, ZOFRAN IV Q6H PRN, MORPHINE 2MG IV Q4H PRN. WE WILL CONTINUE WITH CURRENT PLAN OF CARE TODAY. PHYSICAL THERAPY WILL CONTINUE TO WORK WITH [place]. OTHERWISE, WE PLAN TO FOLLOW UP WITH AM LABS AND CONTINUE TO MONITOR. - Past Medical Family Social History Past Med/Fam/Surg Hx: No changes since H&P Allergies: Allergies hydromorphone [From Dilaudid] Allergy (Verified 05/10/19 22:16) HALLUCINATIONS iodine Allergy (Verified 05/10/19 02:26) Rdfsgzt-Poh-Dge Reductase Inhibitor Allergy (Verified 05/10/19 02:26) - Review of Systems ROS: No change since H&P - Vital Signs and I&O's Vital Signs: Temperature 98.1 F Pulse Rate [Left Brachial] 76 Pulse Rate 90 Respiratory Rate 20 Blood Pressure [Right Arm] 120/60 Blood Pressure [Left Arm] 138/70 Blood Pressure 152/82 O2 Sat by Pulse Oximetry 96 Intake and Output: Intake & Output 05/14/19 05/15/19 05/16/19 05/17/19 11:59 11:59 11:59 11:59 Intake Total 3139 / 3139 2943 / 2943 2890 / 2890 2673 / 2673 Output Total 2700 / 2700 Balance 439 / 439 2943 / 2943 2890 / 2890 2673 / 2673 - Physical Exam Oriented: Normal Eyes: Normal Ear: Normal Nose: Normal Throat: Normal Respiratory: Generalized, Diminished Cardiovascular: Tachycardia. negative: S3, S4, Murmur : Other (groves in place ) Auscultation: Bowel Sounds: Decreased Tenderness: Diffuse (moderate .), Moderate. negative: Rebound, Guarding, Ri gidity Skin: Normal Musculoskeletal: Normal Psychiatric: Normal Mood Description: Calm Affect: Normal Speech Pattern: Appropriate - Laboratory and Diagnostics Result Diagrams: 05/16/19 04:38 05/16/19 04:38 Labs: Laboratory WBC 7.8 X10^3/uL (3.6-10.0) 05/16/19 04:38 RBC 3.90 X10^6/uL (3.5-5.4) 05/16/19 04:38 Hgb 12.4 g/dL (12.0-16.0) 05/16/19 04:38 Hct 37.0 % (36.0-47.0) 05/16/19 04:38 MCV 94.7 fL (80.0-100.0) 05/16/19 04:38 MCH 31.8 pg (27.0-34.0) 05/16/19 04:38 MCHC 33.6 g/dL (33.0-35.0) 05/16/19 04:38 RDW 14.3 % (11.6-16.5) 05/16/19 04:38 Plt Count 202 X10^3/uL (150.0-450.0) 05/16/19 04:38 Plt Count Comment Adequate (ADEQUATE) 05/16/19 04:38 MPV 9.1 fL (7.4-11.0) 05/16/19 04:38 Neut % (Auto) 70.7 % (42.0-75.0) 05/16/19 04:38 Lymph % (Auto) 17.6 % (21.0-51.0) L 05/16/19 04:38 [place] % (Auto) 8.6 % (0.0-13.0) 05/16/19 04:38 Eos % (Auto) 2.0 % (0.9-2.9) 05/16/19 04:38 Baso % (Auto) 1.1 % (0.2-1.0) H 05/16/19 04:38 Neut # (Auto) 5.5 x10^3/uL (2.2-4.8) H 05/16/19 04:38 Lymph # (Auto) 1.4 X10^3/uL (1.3-2.9) 05/16/19 04:38 [place] # (Auto) 0.7 x10^3/uL (0.3-0.8) 05/16/19 04:38 Eos # (Auto) 0.2 x10^3/uL (0.0-0.2) 05/16/19 04:38 Baso # (Auto) 0.1 X10^3/uL (0.0-0.1) 05/16/19 04:38 Absolute Nucleated RBC 0.0 /100WBC 05/16/19 04:38 Total Counted 100 05/16/19 04:38 Neutrophils % (Manual) 66 % (39-76) 05/16/19 04:38 Band Neutrophils % 2 % (0-10) 05/16/19 04:38 Lymphocytes % (Manual) 20 % (13-43) 05/16/19 04:38 Monocytes % (Manual) 10 % (4-9) H 05/16/19 04:38 Eosinophils % (Manual) 2 % (0-6) 05/16/19 04:38 Plt Morphology Comment Normal (NORMAL) 05/16/19 04:38 RBC Morphology Normal (NORMAL) 05/16/19 04:38 PT 14.0 SECONDS (11.8-14.3) 05/10/19 10:49 INR Target Range - 05/10/19 10:49 INR 1.12 (0.8-1.3) 05/10/19 10:49 Sodium 135 mmol/L (136-145) L 05/16/19 04:38 Corrected Sodium 135 mmol/L (136-145) L 05/16/19 04:38 Potassium 4.1 mmol/L (3.5-5.1) 05/16/19 04:38 Chloride 104 mmol/L (98-107) 05/16/19 04:38 Carbon Dioxide 16.9 mmol/L (21-32) L 05/16/19 04:38 BUN 32 mg/dL (7-18) H 05/16/19 04:38 Creatinine 1.08 mg/dL (0.55-1.02) H 05/16/19 04:38 Est GFR (MDRD) Af Amer > 60 (>60) 05/16/19 04:38 Est GFR (MDRD) Non-Af 54 (>60) L 05/16/19 04:38 Glucose 120 mg/dL (65-99) H 05/16/19 04:38 POC Glucose (mg/dL) 160 mg/dL (65-99) H 05/14/19 11:45 Calcium 8.4 mg/dL (8.5-10.1) L 05/16/19 04:38 Corrected Calcium 10.0 mg/dL (8.5-10.1) 05/16/19 04:38 Total Bilirubin 0.40 mg/dL (0.2-1.0) 05/16/19 04:38 AST 31 Units/L (15-37) 05/16/19 04:38 ALT 25 Units/L (12-78) 05/16/19 04:38 Alkaline Phosphatase 52 Units/L (46-116) 05/16/19 04:38 Total Protein 5.5 g/dL (6.4-8.2) L 05/16/19 04:38 Albumin 2.0 g/dL (3.4-5.0) L 05/16/19 04:38 Globulin 3.5 g/dL (2.5-4.5) 05/16/19 04:38 Albumin/Globulin Ratio 0.6 Ratio (1.1-2.1) L 05/16/19 04:38 Lipase 311 Units/L (73-393) 05/10/19 02:56 Specimen Type Catherized urine 05/10/19 12:20 Urine Color Yellow (YELLOW) 05/10/19 12:20 Urine Appearance Slightly hazy (CLEAR) 05/10/19 12:20 Urine pH 5.0 (5.0 - 8.0) 05/10/19 12:20 Ur Specific [place] 1.020 (1.000-1.030) 05/10/19 12:20 Urine Protein Negative (NEGATIVE) 05/10/19 12:20 Urine Glucose (UA) 4+ (NEGATIVE) 05/10/19 12:20 Urine Ketones Negative (NEGATIVE) 05/10/19 12:20 Urine Occult Blood Negative (NEGATIVE) 05/10/19 12:20 Urine Nitrite Negative (NEGATIVE) 05/10/19 12:20 Urine Bilirubin Negative (NEGATIVE) 05/10/19 12:20 Urine Urobilinogen Normal (NORMAL) 05/10/19 12:20 Ur Leukocyte Esterase Negative (NEGATIVE) 05/10/19 12:20 Urine RBC 0-2 /HPF (0-3) 05/10/19 12:20 Urine WBC None seen /HPF (0-5) 05/10/19 12:20 Ur Squamous Epith Cells Few /HPF (NEGATIVE) 05/10/19 12:20 Urine Bacteria Trace /HPF (NEGATIVE) 05/10/19 12:20 Ur Culture Indicated? No/not indicated 05/10/19 12:20 Tissue Pathology To follow 05/10/19 13:00 - Plan (1) Abdominal pain Status: Acute Qualifiers: Abdominal location: left lower quadrant Qualified Code(s): R10.32 - Left lower quadrant pain Plan: STATUS POST HERNIA REPAIR AND LYSIS OF ADHESIONS, NORMAL SALINE AT 75ML/HR, PROTONIX 40MG IV DAILY, MORPHINE 2MG IV Q4H PRN, AND ZOFRAN 4MG IV Q6H PRN (2) Incarcerated hernia Status: Acute (3) Acute renal failure Status: Acute Qualifiers: Acute renal failure type: unspecified Qualified Code(s): N17.9 - Acute kidney failure, unspecified Plan: IV FLUIDS, CONTINUE TO MONITOR. (4) Hyperkalemia Status: Acute Plan: IV FLUIDS, CONTINUE TO MONITOR.
[2019-05-16] MEDS: TUMS PO PRN (20:34)
[2019-05-17] MEDS: NS 1000 ML 1,000 ML IV SCH ×2 (03:20→10:52)
[2019-05-17] MEDS: MORPHINE SULFATE INJ 2 MG INJ IVP PRN ×2 (03:21→09:41)
[2019-05-17] MEDS: TUMS PO PRN (03:37)
[2019-05-17 04:51] LABS: BASOPHILS # (AUTO) 0.1 X10^3/uL (0.0-0.1); BASOPHILS % (AUTO) 0.6 % (0.2-1.0); EOSINOPHILS # (AUTO) 0.2 x10^3/uL (0.0-0.2); HEMATOCRIT 37.8 % (36.0-47.0); HEMOGLOBIN 12.7 g/dL (12.0-16.0); LYMPHOCYTES # (AUTO) 1.4 X10^3/uL (1.3-2.9); MEAN CORPUSCULAR HEMOGLOBIN 31.7 pg (27.0-34.0); MEAN CORPUSCULAR HGB CONC 33.6 g/dL (33.0-35.0); MEAN CORPUSCULAR VOLUME 94.1 fL (80.0-100.0); MEAN PLATELET VOLUME 8.7 fL (7.4-11.0); MONOCYTES # (AUTO) 0.6 x10^3/uL (0.3-0.8); MONOCYTES % (AUTO) 6.7 % (0.0-13.0); NEUTROPHILS # (AUTO) 7.3 x10^3/uL (2.2-4.8); NEUTROPHILS % (AUTO) 75.7 % (42.0-75.0); PLATELET COUNT 230 X10^3/uL (150.0-450.0); RED BLOOD COUNT 4.02 X10^6/uL (3.5-5.4); RED CELL DISTRIBUTION WIDTH 14.5 % (11.6-16.5); WHITE BLOOD COUNT 9.6 X10^3/uL (3.6-10.0)
[2019-05-17 05:09] LABS: ALANINE AMINOTRANSFERASE 33 Units/L (12-78); ALBUMIN 2.2 g/dL (3.4-5.0); ALKALINE PHOSPHATASE 55 Units/L (46-116); ASPARTATE AMINO TRANSFERASE 44 Units/L (15-37); BLOOD UREA NITROGEN 27 mg/dL (7-18); CALCIUM 8.5 mg/dL (8.5-10.1); CARBON DIOXIDE 15.3 mmol/L (21-32); CHLORIDE 102 mmol/L (98-107); COR CA(FOR HYPOALB) 9.9 mg/dL (8.5-10.1); COR NA(FOR HYPERGLY) 135 mmol/L (136-145); CREATININE 1.16 mg/dL (0.55-1.02); SODIUM 134 mmol/L (136-145); TOTAL PROTEIN 5.7 g/dL (6.4-8.2); eGFR NON BLACK RACES 50 (>60)
[2019-05-17 05:27] LABS: BAND NEUTROPHILS % 4 % (0-10)
[2019-05-17 05:28] LABS: PLATELET MORPHOLOGY COMMENT NORMAL (NORMAL)
[2019-05-17] MEDS: XANAX PO SCH (05:55)
[2019-05-17] MEDS: WELCHOL PO SCH (06:28)
[2019-05-17] MEDS ORDERED: ZOLOFT PO ONE (08:06)
[2019-05-17] MEDS: Atrovent NEB TX 0.02% NEB SCH (08:26)
[2019-05-17] MEDS: ZOLOFT PO SCH (08:27)
[2019-05-17] MEDS: SYNTHROID 50 mcg TAB PO SCH (08:28)
[2019-05-17] MEDS: WELLBUTRIN XL 150 MG (DAILY) PO SCH (08:28)
[2019-05-17] MEDS: PEPCID 20 MG IV PREMIX* 20 MG/50 ML BAG IV SCH (08:28)
[2019-05-17] MEDS: PROTONIX INJ 40 MG VIAL IVP SCH (08:28)
[2019-05-17] MEDS: LOVENOX INJ 30 MG SYR SC SCH (08:31)
[2019-05-17 12:34] VITALS: BP 125/58
[2019-05-17] MEDS ORDERED: Atrovent NEB TX 0.02% NEB SCH (17:00)
[2019-05-17] MEDS ORDERED: WELCHOL PO SCH (17:00)
--- NOTE | 2019-05-17 19:17 | PCM.PROG ---
Progress Note - Progress Note for Day of Date of Exam: 05/16/19 - Subjective Subjective: WAS ADMITTED FOR TREATMENT OF AN INCARCERATED HERNIA, DEHYDRATION, HYPERKALEMIA, AND ACUTE ON CHRONIC KIDNEY DISEASE. SHE IS DAY 4 STATUS POST EXPLORATORY LAPAROTOMY, LYSIS OF EXTENSIVE ADHESIONS, PARTIAL OMENTECTOMY, REPAIR OF INCARCERATED HERNIA, AND RELEASE OF BOWEL OBSTRUCTION. TODAY, SHE IS ALERT AND ORIENTED, LYING IN BED ON MORNING ROUNDS. SHE CONTINUES TO REPORT MILD PAIN, BUT CONTINUES TO REPORT IMPROVMENT. SHE REPORTS HAVING WATERY DIARRHEA TODAY. SHE HAS BEEN AMBULATING TO THE BATHROOM WITH ASSISTANCE. ON EXAMINATION, HEART IS REGULAR IN RATE AND RHYTHM. BILATERAL LUNGS ARE NOTED WITH DIMINISHED LUNG SOUNDS THROUGHOUT. ABDOMEN IS ROUND, SOFT, AND NOTED WITH DIFFUSE TENDERNESS TO PALPATION. THERE IS A TRANSVERSE SURGICAL WOUND WITH STABLES NOTED. NO DRAINAGE OR S/SX INFECTION NOTED. SHE IS USING AN ABDOMINAL BINDER. NORMAL BOWEL SOUNDS ARE NOTED IN ALL QUADRANTS. HER VITALS THIS MORNING ARE: 97.7-72-20-96%-125/64. LABS WERE OBTAINED. ABNORMAL LAB VALUES INCLUDE THE FOLLOWING: SODIUM 135, CARBON DIOXIDE 16.9, BUN 32, CREATININE 1.08, GLUCOSE 120, CALCIUM 8.4, TOTAL PROTEIN 5.5, ALBUMIN 2.0. SHE IS CURRENTLY RECEIVING NORMAL SALINE, LEVAQUIN 500MG IV DAILY, RESPIRATORY TREATMENTS, ZOFRAN IV Q6H PRN, MORPHINE 2MG IV Q4H PRN. TODAY, WE WILL DISCONTINUE THE LEVAQUIN. WE WILL START WELCHOL 1250MG PO BID AND WILL OBTAIN A KUB. PHYSICAL THERAPY [facility]. OTHERWISE, WE PLAN TO FOLLOW UP WITH AM LABS AND CONTINUE TO MONITOR. - Past Medical Family Social History Past Med/Fam/Surg Hx: No changes since H&P Allergies: Allergies hydromorphone [From Dilaudid] Allergy (Verified 05/10/19 22:16) HALLUCINATIONS iodine Allergy (Verified 05/10/19 02:26) Pfkiokp-Zgn-Irw Reductase Inhibitor Allergy (Verified 05/10/19 02:26) - Review of Systems ROS: No change since H&P - Vital Signs and I&O's Vital Signs: Temperature 97.6 F Pulse Rate [Left Brachial] 76 Pulse Rate 73 Respiratory Rate 18 Blood Pressure [Right Arm] 125/58 Blood Pressure [Left Arm] 138/70 Blood Pressure 152/82 O2 Sat by Pulse Oximetry 93 Intake and Output: Intake & Output 05/15/19 05/16/19 05/17/19 05/18/19 11:59 11:59 11:59 11:59 Intake Total 2943 / 2943 2890 / 2890 3303 / 3303 Balance 2943 / 2943 2890 / 2890 3303 / 3303 - Physical Exam Oriented: Normal Eyes: Normal Ear: Normal Nose: Normal Throat: Normal Respiratory: Generalized, Diminished Cardiovascular: Tachycardia. negative: S3, S4, Murmur : Other (groves in place ) Auscultation: Bowel Sounds: Decreased Tenderness: Diffuse (moderate .), Moderate. negative: Rebound, Guarding, Rigidity Skin: Normal Musculoskeletal: Normal Psychiatric: Normal Mood Description: Calm Affect: Normal Speech Pattern: Appropriate - Laboratory and Diagnostics Result Diagrams: 05/17/19 04:35 05/17/19 04:35 Labs: Laboratory WBC 9.6 X10^3/uL (3.6-10.0) 05/17/19 04:35 RBC 4.02 X10^6/uL (3.5-5.4) 05/17/19 04:35 Hgb 12.7 g/dL (12.0-16.0) 05/17/19 04:35 Hct 37.8 % (36.0-47.0) 05/17/19 04:35 MCV 94.1 fL (80.0-100.0) 05/17/19 04:35 MCH 31.7 pg (27.0-34.0) 05/17/19 04:35 MCHC 33.6 g/dL (33.0-35.0) 05/17/19 04:35 RDW 14.5 % (11.6-16.5) 05/17/19 04:35 Plt Count 230 X10^3/uL (150.0-450.0) 05/17/19 04:35 Plt Count Comment Adequate (ADEQUATE) 05/17/19 04:35 MPV 8.7 fL (7.4-11.0) 05/17/19 04:35 Neut % (Auto) 75.7 % (42.0-75.0) H 05/17/19 04:35 Lymph % (Auto) 15.0 % (21.0-51.0) L 05/17/19 04:35 [place] % (Auto) 6.7 % (0.0-13.0) 05/17/19 04:35 Eos % (Auto) 2.0 % (0.9-2.9) 05/17/19 04:35 Baso % (Auto) 0.6 % (0.2-1.0) 05/17/19 04:35 Neut # (Auto) 7.3 x10^3/uL (2.2-4.8) H 05/17/19 04:35 Lymph # (Auto) 1.4 X10^3/uL (1.3-2.9) 05/17/19 04:35 [place] # (Auto) 0.6 x10^3/uL (0.3-0.8) 05/17/19 04:35 Eos # (Auto) 0.2 x10^3/uL (0.0-0.2) 05/17/19 04:35 Baso # (Auto) 0.1 X10^3/uL (0.0-0.1) 05/17/19 04:35 Absolute Nucleated RBC 0.0 /100WBC 05/17/19 04:35 Total Counted 100 05/17/19 04:35 Neutrophils % (Manual) 68 % (39-76) 05/17/19 04:35 Band Neutrophils % 4 % (0-10) 05/17/19 04:35 Lymphocytes % (Manual) 20 % (13-43) 05/17/19 04:35 Monocytes % (Manual) 5 % (4-9) 05/17/19 04:35 Eosinophils % (Manual) 3 % (0-6) 05/17/19 04:35 Plt Morphology Comment Normal (NORMAL) 05/17/19 04:35 RBC Morphology Normal (NORMAL) 05/17/19 04:35 PT 14.0 SECONDS (11.8-14.3) 05/10/19 10:49 INR Target Range - 05/10/19 10:49 INR 1.12 (0.8-1.3) 05/10/19 10:49 Sodium 134 mmol/L (136-145) L 05/17/19 04:35 Corrected Sodium 135 mmol/L (136-145) L 05/17/19 04:35 Potassium 4.0 mmol/L (3.5-5.1) 05/17/19 04:35 Chloride 102 mmol/L (98-107) 05/17/19 04:35 Carbon Dioxide 15.3 mmol/L (21-32) L 05/17/19 04:35 BUN 27 mg/dL (7-18) H 05/17/19 04:35 Creatinine 1.16 mg/dL (0.55-1.02) H 05/17/19 04:35 Est GFR (MDRD) Af Amer > 60 (>60) 05/17/19 04:35 Est GFR (MDRD) Non-Af 50 (>60) L 05/17/19 04:35 Glucose 124 mg/dL (65-99) H 05/17/19 04:35 POC Glucose (mg/dL) 160 mg/dL (65-99) H 05/14/19 11:45 Calcium 8.5 mg/dL (8.5-10.1) 05/17/19 04:35 Corrected Calcium 9.9 mg/dL (8.5-10.1) 05/17/19 04:35 Total Bilirubin 0.40 mg/dL (0.2-1.0) 05/17/19 04:35 AST 44 Units/L (15-37) H 05/17/19 04:35 ALT 33 Units/L (12-78) 05/17/19 04:35 Alkaline Phosphatase 55 Units/L (46-116) 05/17/19 04:35 Total Protein 5.7 g/dL (6.4-8.2) L 05/17/19 04:35 Albumin 2.2 g/dL (3.4-5.0) L 05/17/19 04:35 Globulin 3.5 g/dL (2.5-4.5) 05/17/19 04:35 Albumin/Globulin Ratio 0.6 Ratio (1.1-2.1) L 05/17/19 04:35 Lipase 311 Units/L (73-393) 05/10/19 02:56 Specimen Type Catherized urine 05/10/19 12:20 Urine Color Yellow (YELLOW) 05/10/19 12:20 Urine Appearance Slightly hazy (CLEAR) 05/10/19 12:20 Urine pH 5.0 (5.0 - 8.0) 05/10/19 12:20 Ur Specific [place] 1.020 (1.000-1.030) 05/10/19 12:20 Urine Protein Negative (NEGATIVE) 05/10/19 12:20 Urine Glucose (UA) 4+ (NEGATIVE) 05/10/19 12:20 Urine Ketones Negative (NEGATIVE) 05/10/19 12:20 Urine Occult Blood Negative (NEGATIVE) 05/10/19 12:20 Urine Nitrite Negative (NEGATIVE) 05/10/19 12:20 Urine Bilirubin Negative (NEGATIVE) 05/10/19 12:20 Urine Urobilinogen Normal (NORMAL) 05/10/19 12:20 Ur Leukocyte Esterase Negative (NEGATIVE) 05/10/19 12:20 Urine RBC 0-2 /HPF (0-3) 05/10/19 12:20 Urine WBC None seen /HPF (0-5) 05/10/19 12:20 Ur Squamous Epith Cells Few /HPF (NEGATIVE) 05/10/19 12:20 Urine Bacteria Trace /HPF (NEGATIVE) 05/10/19 12:20 Ur Culture Indicated? No/not indicated 05/10/19 12:20 Tissue Pathology To follow 05/10/19 13:00 - Plan (1) Abdominal pain Status: Acute Qualifiers: Abdominal location: left lower quadrant Qualified Code(s): R10.32 - Left lower quadrant pain Plan: STATUS POST HERNIA REPAIR AND LYSIS OF ADHESIONS, NORMAL SALINE AT 75ML/HR, PROTONIX 40MG IV DAILY, MORPHINE 2MG IV Q4H PRN, AND ZOFRAN 4MG IV Q6H PRN (2) Incarcerated hernia Status: Acute (3) Acute renal failure Status: Acute Qualifiers: Acute renal failure type: unspecified Qualified Code(s): N17.9 - Acute kidney failure, unspecified Plan: IV FLUIDS, CONTINUE TO MONITOR. (4) Hyperkalemia Status: Acute Plan: IV FLUIDS, CONTINUE TO MONITOR.
[2019-05-17] MEDS ORDERED: PROTONIX INJ 40 MG VIAL IVP SCH (21:00)
[2019-05-18] MEDS ORDERED: WELLBUTRIN XL 150 MG (DAILY) PO SCH (09:00)
[2019-05-18] MEDS ORDERED: LOVENOX INJ 30 MG SYR SC SCH (09:00)
[2019-05-18] MEDS ORDERED: PEPCID 20 MG IV PREMIX* 20 MG/50 ML BAG IV SCH (09:00)
[2019-05-18] MEDS ORDERED: ZOLOFT PO SCH (09:00)
[2019-05-18] MEDS ORDERED: SYNTHROID 50 mcg TAB PO SCH (09:00)
== END 2019-05-17 02:00 | disposition home health service (06) | DRG 335 ==
LOC: ER 01:17 → MED/SURG 01:17 → OBSVTOIN 07:23 → MED/SURG 08:13 → ICU 05-11 16:53 → MED/SURG 05-14 15:23
PROVIDERS: ADMIT Internal Medicine; ATTEND Internal Medicine
DX: R94.31 Abnormal electrocardiogram [ECG] [EKG]; K43.0 Incisional hernia with obstruction, without gangrene; R10.32 Left lower quadrant pain; K56.691 Other complete intestinal obstruction; E11.65 Type 2 diabetes mellitus with hyperglycemia; K65.2 Spontaneous bacterial peritonitis; I10 Essential (primary) hypertension; Z98.84 Bariatric surgery status; K21.9 Gastro-esophageal reflux disease without esophagitis
CPT/HCPCS: 36415; 71010; 71045; 74000; 74018; 74176; 80048; 80053; 81001; 83690; 84132; 85025; 85610; 93005; 94640; 94660; 94667; 94668; 94760; 96365; 96374; 96375; 97112; 97163; 97167; 97530; 97535; 99284; A4216; A4222; A4618; A7030; C9113; J3490; S0028; S0106; G0378; J0330; J0610; J0690; J1170; J1650; J1885; J1940; J1956; J2175; J2250; J2270; J2405; J2704; J2710; J3010; J7030; J7050; J7120; J7620; J7644; S5010

== ENCOUNTER 2019-06-14 12:19 | Observation (INO) ==
[2019-06-14] MEDS ORDERED: ZOFRAN INJ 4 MG VIAL IVP PRN (12:59)
[2019-06-14] MEDS ORDERED: NS 1000 ML 1,000 ML IV ONE (12:59)
--- NOTE | 2019-06-14 13:29 | RAD ---
History: Nausea and vomiting Study: Acute abdominal series Comparison: May 16, 2019 Findings: The lungs are clear and the heart and mediastinum are unremarkable. The bowel gas pattern is normal. There are surgical clips about the gastroesophageal junction. There is severe degenerative changes in the lumbar spine with levoscoliosis about the thoracolumbar junction. No abnormal soft tissue calcification is demonstrated. Impression: No acute disease Reported By:
[2019-06-14 13:39] VITALS: BMI 27.4
[2019-06-14 13:59] LABS: BASOPHILS # (AUTO) 0.1 X10^3/uL (0.0-0.1); BASOPHILS % (AUTO) 0.8 % (0.2-1.0); EOSINOPHILS # (AUTO) 0.3 x10^3/uL (0.0-0.2); EOSINOPHILS % (AUTO) 3.2 % (0.9-2.9); HEMOGLOBIN 13.9 g/dL (12.0-16.0); LYMPHOCYTES # (AUTO) 1.7 X10^3/uL (1.3-2.9); LYMPHOCYTES % (AUTO) 18.6 % (21.0-51.0); MEAN CORPUSCULAR HEMOGLOBIN 30.7 pg (27.0-34.0); MEAN CORPUSCULAR HGB CONC 33.2 g/dL (33.0-35.0); MEAN CORPUSCULAR VOLUME 92.6 fL (80.0-100.0); MEAN PLATELET VOLUME 8.7 fL (7.4-11.0); MONOCYTES # (AUTO) 0.5 x10^3/uL (0.3-0.8); NEUTROPHILS # (AUTO) 6.6 x10^3/uL (2.2-4.8); NEUTROPHILS % (AUTO) 72.4 % (42.0-75.0); PLATELET COUNT 195 X10^3/uL (150.0-450.0); RED BLOOD COUNT 4.54 X10^6/uL (3.5-5.4); RED CELL DISTRIBUTION WIDTH 14.3 % (11.6-16.5); WHITE BLOOD COUNT 9.1 X10^3/uL (3.6-10.0)
[2019-06-14 14:10] LABS: ALBUMIN 3.3 g/dL (3.4-5.0); CALCIUM 9.7 mg/dL (8.5-10.1); CARBON DIOXIDE 24.3 mmol/L (21-32); COR CA(FOR HYPOALB) 10.3 mg/dL (8.5-10.1); CREATININE 1.47 mg/dL (0.55-1.02); TOTAL PROTEIN 7.2 g/dL (6.4-8.2)
[2019-06-14] MEDS: NS 1000 ML 1,000 ML IV SCH ×3 (15:25→23:02)
[2019-06-14] MEDS ORDERED: HumuLIN R SUBCUT PRN (16:25)
[2019-06-14] MEDS ORDERED: SNACK - Diabetic Appropriate PO SCH (20:00)
[2019-06-14 23:12] LABS: BILIRUBIN,URINE NEGATIVE (NEGATIVE); BLOOD/HEMOGLOBIN,URINE NEGATIVE (NEGATIVE); GLUCOSE, URINE 4+ (NEGATIVE); KETONES,URINE 2+ (NEGATIVE); LEUKOCYTE ESTERASE ,URINE NEGATIVE (NEGATIVE); NITRITES,URINE NEGATIVE (NEGATIVE); PH,URINE 6.5 (5.0 - 8.0); PROTEIN,URINE NEGATIVE (NEGATIVE); UROBILINOGEN,URINE NORMAL (NORMAL)
[2019-06-14 23:37] LABS: APPEARANCE,URINE CLEAR (CLEAR); COLOR,URINE YELLOW (YELLOW)
[2019-06-14 23:38] LABS: BACTERIA,URINE NEGATIVE /HPF (NEGATIVE); RBC,URINE NONE SEEN /HPF (0-3); SQUAMOUS EPITHELIAL CELL,UR RARE /HPF (NEGATIVE)
[2019-06-15 05:09] LABS: BASOPHILS # (AUTO) 0.1 X10^3/uL (0.0-0.1); EOSINOPHILS # (AUTO) 0.3 x10^3/uL (0.0-0.2); EOSINOPHILS % (AUTO) 3.5 % (0.9-2.9); LYMPHOCYTES # (AUTO) 3.4 X10^3/uL (1.3-2.9); LYMPHOCYTES % (AUTO) 35.1 % (21.0-51.0); MEAN CORPUSCULAR HEMOGLOBIN 31.2 pg (27.0-34.0); MEAN CORPUSCULAR HGB CONC 33.4 g/dL (33.0-35.0); MEAN CORPUSCULAR VOLUME 93.5 fL (80.0-100.0); MONOCYTES # (AUTO) 0.5 x10^3/uL (0.3-0.8); MONOCYTES % (AUTO) 4.8 % (0.0-13.0); NEUTROPHILS # (AUTO) 5.4 x10^3/uL (2.2-4.8); NEUTROPHILS % (AUTO) 55.6 % (42.0-75.0); PLATELET COUNT 224 X10^3/uL (150.0-450.0); RED CELL DISTRIBUTION WIDTH 14.4 % (11.6-16.5); WHITE BLOOD COUNT 9.8 X10^3/uL (3.6-10.0)
[2019-06-15 05:18] LABS: ALANINE AMINOTRANSFERASE 17 Units/L (12-78); ALBUMIN 3.1 g/dL (3.4-5.0); ALKALINE PHOSPHATASE 63 Units/L (46-116); ASPARTATE AMINO TRANSFERASE 17 Units/L (15-37); BLOOD UREA NITROGEN 13 mg/dL (7-18); CALCIUM 8.8 mg/dL (8.5-10.1); CARBON DIOXIDE 21.5 mmol/L (21-32); CHLORIDE 106 mmol/L (98-107); COR CA(FOR HYPOALB) 9.5 mg/dL (8.5-10.1); CREATININE 1.34 mg/dL (0.55-1.02); SODIUM 139 mmol/L (136-145); TOTAL PROTEIN 6.9 g/dL (6.4-8.2); eGFR NON BLACK RACES 42 (>60)
[2019-06-15] MEDS: NS 1000 ML 1,000 ML IV SCH ×2 (08:19→14:42)
[2019-06-15] MEDS ORDERED: NS 1000 ML 1,000 ML IV ONE (08:57)
[2019-06-15 18:08] VITALS: BP 131/64
--- NOTE | 2019-06-28 19:20 | DR.CARTERS ---
Short Stay Summary - Admission Date Date of Admission: 06/14/19 - Discharge Date Discharge Date: 06/15/19 - Admission Diagnoses (1) Gastritis Status: Acute (2) Dehydration, moderate Status: Acute (3) Nausea and vomiting Status: Acute - Hospital Course Hospital Course: WAS A DIRECT ADMISSION FROM THE OFFICE DUE TO COMPLAINTS OF NAUSEA, VOMITING, DIARRHEA, AND SHORTNESS OF BREATH. SHE IS STATUS POST INCARCERATED HERNIA REPAIR 1 MONTH AGO. ON ADMISSION, VITALS WERE 96.9-72-20-99%-118/64. LABS WERE OBTAINED. ABNORMAL LAB VALUES INCLUDED THE FOLLOWING: CREATININE 1.47, GLUCOSE 200, ALBUMIN 3.3, CORRECTED CALCIUM 10.3. URINALYSIS WAS UNREMARKABLE. AN ABDOMINAL SERIES WAS OBTAINED AND REVEALED: NO ACUTE DISEASE. SHE WAS STARTED ON NORMAL SALINE AT 125ML/HR, IV ZOFRAN, OTBS ACHS, AND HUMULIN R SLIDING SCALE. ON THE MORNING FOLLOWING ADMISSION, PATIENT IS ALERT AND ORIENTED, LYING IN BED ON MORNING ROUNDS. SHE DENIES SHORTNESS OF BREATH, NAUSEA, OR DIARRHEA. SHE REPORTS FEELING WELL AND IS REQUESTING DISCHARGE. HER VITALS THIS MORNING ARE: 97.8-75-18-95%-110/57. LABS WERE OBTAINED. ABNORMAL LAB VALUES INCLUDE THE FOLLOWING: CREATININE 1.34, GLUCOSE 101, ALBUMIN 3.1. URINE CULTURE IS PENDING. WE PLANNED FOR DISCHARGE. PRIOR TO DISCHARGE, SHE WAS GIVEN A 1 LITER NORMAL SALINE BOLUS. INSTRUCTIONS FOR MEDICATIONS AND FOLLOW UP WERE DISCUSSED WITH PATIENT AND FAMILY. THEY VERBALIZED UNDERSTANDING. SHE WAS DISCHARGED HOME IN STABLE CONDITION WITH INSTRUCTIONS TO CONTINUE HER HOME MEDICATIONS AND TO FOLLOW UP IN THE OFFICE ON 06/22/19 AT 2:00PM. - Discharge Medications Discharge Medications: Home Medication List Nucynta 100 mg PO QID PRN 06/15/19 [History] cefdinir 300 mg PO BID 06/15/19 [History] Prescriptions: Prescription drug monitoring program results: PDMP was not reviewed - Discharge Plan Disposition: HOME, SELF-CARE Condition: Stable - Follow up/Referrals Follow up/Referrals: Rajesh Weston [Primary Care Provider] - 06/22/19 2:00 pm - Instructions Instructions: Fall Prevention in the Home, Adult, Dogm-xu-Evxg, Type 2 Diabetes Mellitus, Self Care, Adult, Avfx-eh-Lifq, Nausea and Vomiting, Adult, Kpxz-es-Xpis, Hypertension, Aabt-cz-Wrfb, Rehydration, Elderly, Dehydration, Elderly, Wbww-tq-Hswi Additional Instructions: DIET TOLERATED. ACTIVITY TOLERATED. HOLD LISINOPRIL UNTIL FOLLOW-UP APPOINTMENT. Forms: Patient Portal
== END 2019-06-15 17:30 | disposition home or self-care (01) ==
LOC: MED/SURG
PROVIDERS: ADMIT Internal Medicine; ATTEND Internal Medicine
DX: R11.2 Nausea with vomiting, unspecified; F41.1 Generalized anxiety disorder; E11.42 Type 2 diabetes mellitus with diabetic polyneuropathy; Z98.890 Other specified postprocedural states; E86.0 Dehydration; K29.00 Acute gastritis without bleeding; R06.02 Shortness of breath; R53.1 Weakness; I10 Essential (primary) hypertension
CPT/HCPCS: 36415; 74022; 80053; 81001; 82150; 83690; 85025; 87086; 94760; 96367; 96374; A4216; A4222; G0378; J2405; J7030

== ENCOUNTER 2020-03-13 19:56 | Inpatient (IN) ==
[2020-03-13 21:38] LABS: BASOPHILS # (AUTO) 0.1 X10^3/uL (0.0-0.1); BASOPHILS % (AUTO) 0.3 % (0.2-1.0); EOSINOPHILS % (AUTO) 0.1 % (0.9-2.9); HEMATOCRIT 35.9 % (36.0-47.0); HEMOGLOBIN 11.6 g/dL (12.0-16.0); LYMPHOCYTES # (AUTO) 1.4 X10^3/uL (1.3-2.9); LYMPHOCYTES % (AUTO) 5.5 % (21.0-51.0); MEAN CORPUSCULAR HEMOGLOBIN 29.2 pg (27.0-34.0); MEAN CORPUSCULAR HGB CONC 32.3 g/dL (33.0-35.0); MEAN CORPUSCULAR VOLUME 90.3 fL (80.0-100.0); MEAN PLATELET VOLUME 9.3 fL (7.4-11.0); MONOCYTES % (AUTO) 3.8 % (0.0-13.0); NEUTROPHILS # (AUTO) 23.3 x10^3/uL (2.2-4.8); NEUTROPHILS % (AUTO) 90.3 % (42.0-75.0); PLATELET COUNT 443 X10^3/uL (150.0-450.0); RED BLOOD COUNT 3.97 X10^6/uL (3.5-5.4); RED CELL DISTRIBUTION WIDTH 16.7 % (11.6-16.5); WHITE BLOOD COUNT 25.9 X10^3/uL (3.6-10.0)
[2020-03-13 21:45] LABS: ANISOCYTOSIS SLIGHT; PLATELET MORPHOLOGY COMMENT NORMAL (NORMAL)
[2020-03-13 21:51] LABS: ALBUMIN 2.3 g/dL (3.4-5.0); CARBON DIOXIDE 17.4 mmol/L (21-32); COR CA(FOR HYPOALB) 11.4 mg/dL (8.5-10.1); CREATININE 4.13 mg/dL (0.55-1.02); TOTAL PROTEIN 8.4 g/dL (6.4-8.2)
[2020-03-13] MEDS ORDERED: HumuLIN R SUBCUT PRN (21:58)
--- NOTE | 2020-03-13 23:26 | RAD ---
HISTORYelevated wbcSTUDYCHEST, 1 [id number]/14/2019FINDINGSThe left ventricle is mildly enlarged but unchanged. The pulmonary vessels are normal. There is a rounded opacity along the right upper lobe measuring 8.4 x 8.3 cm which extends into the apex with some central lucency and a questionable air-fluid level which was not seen previously. No effusion is seen.IMPRESSIONLarge 8.4 cm necrotic mass along the right upper lobe which is more apparent and could represent a large neoplasm or pulmonary abscess. Recommend CT correlation.Electronically signed by: ARMAND DONOVAN (Mar 13, 2020 23:24:56)
[2020-03-14] MEDS: NS 1000 ML 1,000 ML IV SCH ×2 (01:28→11:00)
[2020-03-14 06:25] LABS: BASOPHILS % (AUTO) 0.2 % (0.2-1.0); EOSINOPHILS % (AUTO) 0.1 % (0.9-2.9); HEMATOCRIT 36.4 % (36.0-47.0); HEMOGLOBIN 11.6 g/dL (12.0-16.0); LYMPHOCYTES # (AUTO) 1.3 X10^3/uL (1.3-2.9); LYMPHOCYTES % (AUTO) 7.5 % (21.0-51.0); MEAN CORPUSCULAR HEMOGLOBIN 28.9 pg (27.0-34.0); MEAN CORPUSCULAR HGB CONC 31.8 g/dL (33.0-35.0); MEAN CORPUSCULAR VOLUME 90.8 fL (80.0-100.0); MEAN PLATELET VOLUME 9.6 fL (7.4-11.0); MONOCYTES # (AUTO) 0.6 x10^3/uL (0.3-0.8); MONOCYTES % (AUTO) 3.6 % (0.0-13.0); NEUTROPHILS # (AUTO) 15.9 x10^3/uL (2.2-4.8); NEUTROPHILS % (AUTO) 88.6 % (42.0-75.0); PLATELET COUNT 418 X10^3/uL (150.0-450.0); RED BLOOD COUNT 4.01 X10^6/uL (3.5-5.4); RED CELL DISTRIBUTION WIDTH 16.9 % (11.6-16.5); WHITE BLOOD COUNT 17.9 X10^3/uL (3.6-10.0)
[2020-03-14 06:44] LABS: ALBUMIN 2.2 g/dL (3.4-5.0); CALCIUM 9.6 mg/dL (8.5-10.1); CREATININE 3.42 mg/dL (0.55-1.02)
[2020-03-14] MEDS: DUONEB 0.5 MG/3 MG (3 mL) NEB SCH ×4 (09:30→20:45)
[2020-03-14] MEDS ORDERED: BUTT CREAM (COMPOUND) ONE (10:17)
[2020-03-14 10:37] LABS: BILIRUBIN,URINE NEGATIVE (NEGATIVE); BLOOD/HEMOGLOBIN,URINE NEGATIVE (NEGATIVE); GLUCOSE, URINE 4+ (NEGATIVE); KETONES,URINE 1+ (NEGATIVE); LEUKOCYTE ESTERASE ,URINE NEGATIVE (NEGATIVE); NITRITES,URINE NEGATIVE (NEGATIVE); PROTEIN,URINE 1+ (NEGATIVE); UROBILINOGEN,URINE NORMAL (NORMAL)
[2020-03-14 10:43] LABS: APPEARANCE,URINE HAZY (CLEAR); COLOR,URINE YELLOW (YELLOW)
[2020-03-14 10:44] LABS: BACTERIA,URINE NEGATIVE /HPF (NEGATIVE); MUCUS,URINE FEW /HPF (NEGATIVE); RBC,URINE NONE SEEN /HPF (0-3); SQUAMOUS EPITHELIAL CELL,UR NEGATIVE /HPF (NEGATIVE)
[2020-03-14] MEDS: LEVAQUIN PREMIX IV 750 MG 750 MG/150 ML BAG IV SCH (11:00)
--- NOTE | 2020-03-14 11:07 | DR.H&P ---
H&P - History & Physical for Day of: H&P Date: 03/13/20 - Chief Complaint Chief Complaint: WEAKNESS, DECREASED ORAL INTAKE AND APPETITE, NAUSEA/VOMITING, SHORTNESS OF BREATH, AND DIARRHEA X 1 WEEK - History of Present Illness History of Present Illness: IS A 64 YEAR OLD PATIENT OF OURS WHO PRESENTED TO THE HOSPITAL A DIRECT ADMISSION DUE TO COMPLAINTS OF WEAKNESS, DECREASED ORAL INTAKE AND APPETITE, NAUSEA/VOMITING, SHORTNESS OF BREATH, AND DIARRHEA X 1 WEEK. SHE REPORTS DRINKING BIOLYTE AT HOME WITHOUT IMPROVEMENT IN SYMPTOMS. HER PMH INCLUDES: HTN, GASTRIC STAPLING SURGERY, SCOLIOSIS, DIABETES MELLITIS II, HYPOTHYROIDISM, DEPRESSION, AND VOLVULUS REPAIR. ON ARRIVAL TO THE HOSPITAL, VITALS WERE 97.7-96-20-95%RA-96/59. LABS WERE OBTAINED. ABNORMAL LAB VALUES INCLUDE THE FOLLOWING: WBC 25.9, HGB 11.6, HCT 35.9, SODIUM 126, CHLORIDE 92, CARBON DIOXIDE 17.4, BUN 132, CREATININE 4.13, GLUCOSE 200, AST 57, ALK PHOS 193, TOTAL PROTEIN 8.4, ALBUMIN 2.3, GLOBULIN 6.1. COVID-19 NEGATIVE. STOOL STUDIES WERE OBTAINED. SHE IS POSITIVE FOR OCCULT BLOOD AND WBC. BLOOD, STOOL, AND URINE CULTURES WERE SET UP. A CHEST XRAY WAS OBTAINED AND REVEALED: Large 8.4 cm necrotic mass along the right upper lobe which is more apparent and could represent a large neoplasm or pulmonary abscess. Recommend CT correlation. SHE WAS STARTED ON NS AT 150 ML/HR, LEVAQUIN 750MG IV Q48H, FORTAZ 1G IV DAILY, HUMULIN R SLIDING SCALE, DUONEBS QID. WE WILL OBTAIN A SPUTUM CULTURE AND GRAM STAIN AND AFB CULTURES. WE WILL ALSO OBTAIN A CHEST CT WITH CONTRAST TO EVALUATE POSSIBLE MASS/ABSCESS. OTHERWISE, WE PLAN TO FOLLOW UP WITH AM LABS AND CONTINUE TO MONITOR. TIME SPENT WITH PATIENT ON EXAMINATION, REVIEWING LABS, COUNSELING, AND PLAN OF CARE WAS BETWEEN 30-74 MINUTES. - Past Medical History Past Medical History: Hypertension, Diabetes, Sleep Apnea Additional Medical History: Recent Critical Care Illness/ARDS, Fibromyalgia - Past Surgical History Surgical History: Weight Loss Surgery Additional Surgical History: Lap Band, Reduction Mammoplasty - Family History Family Medical History: Diabetes Mellitus, Cancer, [place] - Social History Type of Tobacco Use: None Does any household member use tobacco: No Alcohol Use: None Drug Use: None - Medications Home Medications: hydromorphone [From Dilaudid] Allergy (Verified 05/10/19 22:16) HALLUCINATIONS iodine Allergy (Verified 05/10/19 02:26) propofol Allergy (Verified 03/14/20 01:59) Jcgklkc-Hyk-Bba Reductase Inhibitor Allergy (Verified 05/10/19 02:26) CONTINUE taking the following medications cyanocobalamin (vitamin B-12) 1,000 mcg IM Q2W 03/14/20 [History] insulin glargine-lixisenatide [[place] 100/33] 30 unit SUBCUT DAILY 03/14/20 [History] lisinopril-hydrochlorothiazide 1 tab PO DAILY 03/14/20 [History] - Review of Systems Constitutional: See HPI, Weakness, Malaise, Other (DECREASED ORAL INTAKE ) Eyes: No Symptoms Reported ENT: No Symptoms Reported Respiratory: Shortness of Breath Cardiovascular: No Symptoms Reported Gastrointestinal: See HPI, Nausea, Vomiting, Diarrhea Genitourinary: No Symptoms Reported Musculoskeletal: No Symptoms Reported Skin: No Symptoms Reported Neurological: Weakness - Physical Exam Vital Signs: Temperature 98.1 F Pulse Rate [Radial] 89 Respiratory Rate 18 Blood Pressure [Right Arm] 99/51 O2 Sat by Pulse Oximetry 95 Oriented: Normal Eyes: Normal Ear: Normal Nose: Normal Throat: Normal Respiratory: Diminished Throughout Cardiovascular: Normal : Normal Auscultation: Bowel Sounds: Increased Palpation: Normal Tenderness: Normal Skin: Normal Musculoskeletal: Normal Psychiatric: Normal Mood Description: Calm Affect: Normal Speech Pattern: Clear - Assessment/Plan (1) Leukocytosis Qualifiers: Leukocytosis type: unspecified Qualified Code(s): D72.829 - Elevated white blood cell count, unspecified Status: Acute Plan: ADMIT, NS AT 150 ML/HR, LEVAQUIN 750MG IV Q48H, FORTAZ 1G IV DAILY, HUMULIN R SLIDING SCALE, DUONEBS QID. WE WILL OBTAIN A SPUTUM CULTURE AND GRAM STAIN AND AFB CULTURES. WE WILL ALSO OBTAIN A CHEST CT WITH CONTRAST TO EVALUATE POSSIBLE MASS/ABSCESS. (2) Hyponatremia Status: Acute (3) Dehydration, moderate Status: Acute - Allergies Allergies/Adverse Reactions: Allergies Allergy/AdvReac Type Severity Reaction Status Date / Time hydromorphone [From Dilaudid] Allergy HALLUCINATI Verified 09/09/19 22:16 ONS iodine Allergy Verified 05/10/19 02:26 propofol Allergy Verified 03/14/20 01:59 Ccaaieo-Uzf-Xtq Reductase Allergy Verified 05/10/19 02:26 Inhibitor
[2020-03-14] MEDS ORDERED: ULTRAM PO PRN (11:17)
[2020-03-14] MEDS: TAPENTADOL 100 MG PO PRN (12:25)
[2020-03-14] MEDS: FORTAZ or TAZICEF VIAL INJ 1 G in NS 100 ML IV + SPIKE MINIBAG* 100 ML IV SCH (12:34)
[2020-03-14] MEDS: ZOLOFT PO SCH ×2 (12:35→18:03)
[2020-03-14] MEDS: WELLBUTRIN XL 150 MG (DAILY) PO SCH ×2 (12:35→18:03)
[2020-03-14] MEDS: SYNTHROID 50 mcg TAB PO SCH ×2 (12:35→18:03)
[2020-03-14 13:32] VITALS: BMI 21.9
[2020-03-14] MEDS: LYRICA CAP 150 mg PO SCH ×2 (14:30→23:45)
--- NOTE | 2020-03-14 17:20 | CT ---
[facility] massSTUDYCT chest without IV contrast. Sagittal and coronal reformations were provided. Axial MIPS were displayed. Dose reduction techniques were utilized.COMPARISONNoneFINDINGSThere is a right upper lobe anterior apical lung mass measuring nearly 8 cm in diameter with a large air-fluid level and thickened irregular wall. There remainder of the lungs appear grossly clear. There is no pleural or pericardial effusion. There is a 1 cm precarinal mediastinal lymph node. There is no obvious hilar adenopathy. There is no bone destruction or erosion by the lung mass which extends to the chest wall laterally. There are diffuse degenerative changes in the thoracic spine. There is no lytic or blastic bone lesion.The partially visualized upper abdomen including the adrenal glands is unremarkable. The right upper lobe lung mass is contiguous with the right hilum superiorly. The anterior segment of the right upper lobe bronchus extends into the cavitary mass.IMPRESSIONCavitary thick-walled large mass in the right upper lobe most suggestive of abscess.Electronically signed by: JEANCARLOS BIRD (Mar 14, 2020 14:46:58)
[2020-03-14] MEDS ORDERED: ZOLOFT PO ONE (17:52)
[2020-03-14] MEDS ORDERED: XANAX PO ONE (18:42)
[2020-03-15] MEDS: LYRICA CAP 150 mg PO SCH ×3 (05:41→21:00)
[2020-03-15] MEDS: NS 1000 ML 1,000 ML IV SCH ×3 (05:41→22:27)
[2020-03-15 06:02] LABS: ALBUMIN 1.8 g/dL (3.4-5.0); CARBON DIOXIDE 18.4 mmol/L (21-32); COR CA(FOR HYPOALB) 10.8 mg/dL (8.5-10.1); CREATININE 1.91 mg/dL (0.55-1.02); TOTAL PROTEIN 6.7 g/dL (6.4-8.2)
[2020-03-15 06:03] LABS: BASOPHILS # (AUTO) 0.1 X10^3/uL (0.0-0.1); BASOPHILS % (AUTO) 0.6 % (0.2-1.0); EOSINOPHILS % (AUTO) 0.2 % (0.9-2.9); HEMATOCRIT 32.8 % (36.0-47.0); HEMOGLOBIN 10.4 g/dL (12.0-16.0); LYMPHOCYTES # (AUTO) 1.2 X10^3/uL (1.3-2.9); LYMPHOCYTES % (AUTO) 8.7 % (21.0-51.0); MEAN CORPUSCULAR HEMOGLOBIN 28.6 pg (27.0-34.0); MEAN CORPUSCULAR HGB CONC 31.7 g/dL (33.0-35.0); MEAN CORPUSCULAR VOLUME 90.3 fL (80.0-100.0); MONOCYTES # (AUTO) 0.7 x10^3/uL (0.3-0.8); MONOCYTES % (AUTO) 5.1 % (0.0-13.0); NEUTROPHILS # (AUTO) 11.3 x10^3/uL (2.2-4.8); NEUTROPHILS % (AUTO) 85.4 % (42.0-75.0); PLATELET COUNT 324 X10^3/uL (150.0-450.0); RED BLOOD COUNT 3.63 X10^6/uL (3.5-5.4); RED CELL DISTRIBUTION WIDTH 16.3 % (11.6-16.5); WHITE BLOOD COUNT 13.2 X10^3/uL (3.6-10.0)
--- NOTE | 2020-03-15 06:25 | RAD ---
HISTORYShortness of breathSTUDYChest AP [id number]/13/2020 plain-film, CT chest 03/14/2020FINDINGSThe heart is within normal limits in size. The meliton are normal. There is no significant change in the large right apical mass being followed. Central cavitation is not as well demonstrated as on the prior examination. This could represent lung abscess, infarct, or cavitary neoplasm. The remainder of the lung cannon are clear. Bony thorax is unremarkable.IMPRESSIONNo change large right apical cavitary mass. Differential diagnosis as aboveElectronically signed by: PAIGE MARIANO (Mar 15, 2020 06:23:33)
[2020-03-15] MEDS: SNACK - Diabetic Appropriate PO SCH ×2 (07:18→20:49)
[2020-03-15] MEDS: DUONEB 0.5 MG/3 MG (3 mL) NEB SCH ×4 (09:33→20:11)
[2020-03-15] MEDS ORDERED: ZOLOFT PO ONE (09:43)
[2020-03-15] MEDS: SYNTHROID 50 mcg TAB PO SCH (09:47)
[2020-03-15] MEDS: WELLBUTRIN XL 150 MG (DAILY) PO SCH (09:47)
[2020-03-15] MEDS: FORTAZ or TAZICEF VIAL INJ 1 G in NS 100 ML IV + SPIKE MINIBAG* 100 ML IV SCH (09:47)
[2020-03-15] MEDS: ZOLOFT PO SCH (09:48)
[2020-03-15] MEDS ORDERED: NS 1000 ML 1,000 ML IV ONE (10:03)
[2020-03-15] MEDS ORDERED: PROCALAMINE 3 % 1,000 ML IV SCH (11:00)
[2020-03-15] MEDS: ALBUMIN HUMAN 25%- 100 ML 100 ML IV SCH (12:15)
[2020-03-15] MEDS: PROCALAMINE 3 % 1,000 ML IV SCH (12:55)
[2020-03-15] MEDS: XANAX PO PRN (20:59)
[2020-03-15] MEDS: TAPENTADOL 100 MG PO PRN (20:59)
[2020-03-16] MEDS: NS 1000 ML 1,000 ML IV SCH ×2 (04:27→18:03)
[2020-03-16] MEDS ORDERED: MAALOX or MYLANTA ONE (04:56)
[2020-03-16] MEDS: MAALOX or MYLANTA PO PRN ×2 (04:59→20:13)
[2020-03-16] MEDS: LYRICA CAP 150 mg PO SCH ×3 (05:06→21:13)
--- NOTE | 2020-03-16 06:06 | RAD ---
HISTORYSOBSTUDYCHEST, 1 [id number]/15/2020FINDINGSThe trachea is midline. The cardiac silhouette is unremarkable. Large right apical mass, unchanged. The remainder of the lungs are clear. Pulmonary vasculature within normal limits.. The bony thorax is unremarkable.IMPRESSIONLarge right apical cavitary mass; no significant change from 03/15/2020Electronically signed by: Jaspal Brantley (Mar 16, 2020 06:05:36)
[2020-03-16 06:13] LABS: BASOPHILS % (AUTO) 0.4 % (0.2-1.0); EOSINOPHILS % (AUTO) 0.3 % (0.9-2.9); HEMATOCRIT 32.2 % (36.0-47.0); HEMOGLOBIN 10.2 g/dL (12.0-16.0); LYMPHOCYTES # (AUTO) 1.2 X10^3/uL (1.3-2.9); LYMPHOCYTES % (AUTO) 9.5 % (21.0-51.0); MEAN CORPUSCULAR HEMOGLOBIN 28.6 pg (27.0-34.0); MEAN CORPUSCULAR HGB CONC 31.7 g/dL (33.0-35.0); MEAN CORPUSCULAR VOLUME 90.2 fL (80.0-100.0); MEAN PLATELET VOLUME 8.7 fL (7.4-11.0); MONOCYTES # (AUTO) 0.7 x10^3/uL (0.3-0.8); MONOCYTES % (AUTO) 5.8 % (0.0-13.0); NEUTROPHILS # (AUTO) 10.5 x10^3/uL (2.2-4.8); PLATELET COUNT 325 X10^3/uL (150.0-450.0); RED BLOOD COUNT 3.57 X10^6/uL (3.5-5.4); RED CELL DISTRIBUTION WIDTH 16.2 % (11.6-16.5); WHITE BLOOD COUNT 12.4 X10^3/uL (3.6-10.0)
[2020-03-16 06:22] LABS: ALBUMIN 2.3 g/dL (3.4-5.0); CALCIUM 8.8 mg/dL (8.5-10.1); CARBON DIOXIDE 22.2 mmol/L (21-32); COR CA(FOR HYPOALB) 10.2 mg/dL (8.5-10.1); CREATININE 1.19 mg/dL (0.55-1.02); TOTAL PROTEIN 6.7 g/dL (6.4-8.2)
[2020-03-16] MEDS ORDERED: K-DUR TAB 20 MEQ PO PRN (06:32)
[2020-03-16] MEDS ORDERED: POTASSIUM CHL 40 MEQ/NS 0.45% 500 ML IV PRN (06:32)
[2020-03-16] MEDS ORDERED: POTASSIUM CHL 60 MEQ/NS 0.45% 500 ML IV PRN (06:32)
[2020-03-16] MEDS ORDERED: KLOR-CON PO PRN (06:32)
[2020-03-16] MEDS ORDERED: MICRO K EXTEN CAP 10 MEQ PO PRN (06:32)
[2020-03-16] MEDS ORDERED: POTASSIUM CHLORIDE LIQ 20 MEQ UDC PO PRN (06:32)
[2020-03-16] MEDS ORDERED: ZOLOFT PO ONE (08:29)
--- NOTE | 2020-03-16 09:03 | PCM.PROG ---
Progress Note - Progress Note for Day of Date of Exam: 03/15/20 - Subjective Subjective: IS BEING TREATED FOR LEUKOCYTOSIS, HYPONATREMIA, DEHYDRATION, AND LUNG MASS VS ABSCESS. TODAY, SHE IS ALERT AND ORIENTED, LYING IN BED ON MORNING ROUNDS. SHE CONTINUES WITH COMPLAINTS OF SHORTNESS OF BREATH AND WEAKNESS. ON EXAMINATION, HEART IS REGULAR IN RATE AND RHYTHM. BILATERAL LUNGS ARE NOTED WITH DIMINISHED LUNG SOUNDS THROUGHOUT. ABDOMEN IS ROUND, SOFT, AND NON-TENDER WITH NORMAL BOWEL SOUNDS NOTED IN ALL QUADRANTS. HER VITALS THIS MORNING ARE: 97.8-85-20-98%-170/69. LABS WERE OBTAINED. ABNORMAL LAB VALUES INCLUDE THE FOLLOWING: WBC 13.2, HGB 10.4, HCT 32.8, SODIUM 134, CARBON DIOXIDE 18.4, BUN 84, CREATININE 1.91, GLUCOSE 125, AST 45, ALK PHOS 137, CRP 142.20, ALBUMIN 1.8. AFB CULTURES PENDING. BLOOD, STOOL, URINE, AND SPUTUM CULTURES ARE ALSO PENDING. A CHEST CT WAS OBTAINED YESTERDAY AND REVEALED: Cavitary thick- walled large mass in the right upper lobe most suggestive of abscess. A CHEST XRAY WAS OBTAINED AND REVEALED: The heart is within normal limits in size. The meliton are normal. There is no significant change in the large right apical mass being followed. Central cavitation is not as well demonstrated as on the prior examination. This could represent lung abscess, infarct, or cavitary neoplasm. The remainder of the lung cannon are clear. Bony thorax is unremarkable. SHE IS CURRENTLY RECEIVING NS AT 150 ML/HR, LEVAQUIN 750MG IV Q48H, FORTAZ 1G IV DAILY, HUMULIN R SLIDING SCALE, DUONEBS QID. WE WILL OBTAIN AN ECHO TODAY. WE WILL BOLUS 1 LITER OF NORMAL SALINE, START PROCALAMINE AT 40 ML/HR, ALBUMIN 25% IV DAILY, DECREASED IV FLUIDS TO 110ML/HR, AND REVIEW HER HOME MEDICATIONS. OTHERWISE, WE WILL FOLLOW UP WITH AM LABS AND CHEST XRAY AND CONTINUE TO MONITOR. - Past Medical Family Social History Past Med/Fam/Surg Hx: No changes since H&P Allergies: Allergies hydromorphone [From Dilaudid] Allergy (Verified 05/10/19 22:16) HALLUCINATIONS iodine Allergy (Verified 05/10/19 02:26) propofol Allergy (Verified 03/14/20 01:59) Iimlseg-Okd-Eeh Reductase Inhibitor Allergy (Verified 05/10/19 02:26) - Review of Systems ROS: No change since H&P - Vital Signs and I&O's Vital Signs: Temperature 97.7 F Pulse Rate [Radial] 69 Pulse Rate 64 Respiratory Rate 21 Blood Pressure [Right Arm] 120/56 O2 Sat by Pulse Oximetry 96 Intake and Output: Intake & Output 03/13/20 03/14/20 03/15/20 03/16/20 11:59 11:59 11:59 11:59 Intake Total 1160 / 1160 1979 3060 / 3060 Balance 1160 / 1160 1979 3060 / 3060 - Physical Exam Oriented: Normal Eyes: Normal Ear: Normal Nose: Normal Throat: Normal Respiratory: Generalized, Diminished Cardiovascular: Normal : Normal Auscultation: Bowel Sounds: Normal Palpation: Normal Tenderness: Normal Skin: Normal Musculoskeletal: Normal Psychiatric: Normal Mood Description: Calm Affect: Normal Speech Pattern: Clear, Appropriate - Laboratory and Diagnostics Result Diagrams: 03/16/20 05:30 03/16/20 05:30 Labs: 03/14/20 10:25 Urine,Catheterized Urine Culture - Final 03/14/20 03:02 Stool Stool Culture - Final 03/14/20 03:02 Stool - Final 03/15/20 12:55 Sputum - Expectorated Sputum - Final 03/13/20 22:28 Blood Blood Culture - Preliminary 03/13/20 22:24 Blood Blood Culture - Preliminary Laboratory WBC 12.4 X10^3/uL (3.6-10.0) H 03/16/20 05:30 RBC 3.57 X10^6/uL (3.5-5.4) 03/16/20 05:30 Hgb 10.2 g/dL (12.0-16.0) L 03/16/20 05:30 Hct 32.2 % (36.0-47.0) L 03/16/20 05:30 MCV 90.2 fL (80.0-100.0) 03/16/20 05:30 MCH 28.6 pg (27.0-34.0) 03/16/20 05:30 MCHC 31.7 g/dL (33.0-35.0) L 03/16/20 05:30 RDW 16.2 % (11.6-16.5) 03/16/20 05:30 Plt Count 325 X10^3/uL (150.0-450.0) 03/16/20 05:30 Plt Count Comment Adequate (ADEQUATE) 03/13/20 21:30 MPV 8.7 fL (7.4-11.0) 03/16/20 05:30 Neut % (Auto) 84.0 % (42.0-75.0) H 03/16/20 05:30 Lymph % (Auto) 9.5 % (21.0-51.0) L 03/16/20 05:30 [place] % (Auto) 5.8 % (0.0-13.0) 03/16/20 05:30 Eos % (Auto) 0.3 % (0.9-2.9) L 03/16/20 05:30 Baso % (Auto) 0.4 % (0.2-1.0) 03/16/20 05:30 Neut # (Auto) 10.5 x10^3/uL (2.2-4.8) H 03/16/20 05:30 Lymph # (Auto) 1.2 X10^3/uL (1.3-2.9) L 03/16/20 05:30 [place] # (Auto) 0.7 x10^3/uL (0.3-0.8) 03/16/20 05:30 Eos # (Auto) 0.0 x10^3/uL (0.0-0.2) 03/16/20 05:30 Baso # (Auto) 0.0 X10^3/uL (0.0-0.1) 03/16/20 05:30 Absolute Nucleated RBC 0.0 /100WBC 03/16/20 05:30 Total Counted 100 03/13/20 21:30 Neutrophils % (Manual) 95 % (39-76) H 03/13/20 21:30 Lymphocytes % (Manual) 3 % (13-43) L 03/13/20 21:30 Monocytes % (Manual) 2 % (4-9) L 03/13/20 21:30 Plt Morphology Comment Normal (NORMAL) 03/13/20 21:30 RBC Morphology Abnormal (NORMAL) A 03/13/20 21:30 Anisocytosis Slight A 03/13/20 21:30 ESR 92 MM/HOUR (0-20) H 03/14/20 05:15 Sodium 136 mmol/L (136-145) 03/16/20 05:30 Corrected Sodium 137 mmol/L (136-145) 03/16/20 05:30 Potassium 3.3 mmol/L (3.5-5.1) L 03/16/20 05:30 Chloride 104 mmol/L (98-107) 03/16/20 05:30 Carbon Dioxide 22.2 mmol/L (21-32) 03/16/20 05:30 BUN 43 mg/dL (7-18) H 03/16/20 05:30 Creatinine 1.19 mg/dL (0.55-1.02) H 03/16/20 05:30 Est GFR (MDRD) Af Amer 58 (>60) L 03/16/20 05:30 Est GFR (MDRD) Non-Af 48 (>60) L 03/16/20 05:30 Glucose 126 mg/dL (65-99) H 03/16/20 05:30 POC Glucose (mg/dL) 119 mg/dL (65-99) H 03/16/20 05:13 Calcium 8.8 mg/dL (8.5-10.1) 03/16/20 05:30 Corrected Calcium 10.2 mg/dL (8.5-10.1) H 03/16/20 05:30 Magnesium 1.2 mg/dL (1.7-2.9) L 03/16/20 05:30 Total Bilirubin 0.30 mg/dL (0.2-1.0) 03/16/20 05:30 AST 42 Units/L (15-37) H 03/16/20 05:30 ALT 53 Units/L (12-78) 03/16/20 05:30 Alkaline Phosphatase 114 Units/L (46-116) 03/16/20 05:30 C-Reactive Protein 120.20 mg/L (0-3.0) H 03/16/20 05:30 Total Protein 6.7 g/dL (6.4-8.2) 03/16/20 05:30 Albumin 2.3 g/dL (3.4-5.0) L 03/16/20 05:30 Globulin 4.4 g/dL (2.5-4.5) 03/16/20 05:30 Albumin/Globulin Ratio 0.5 Ratio (1.1-2.1) L 03/16/20 05:30 Specimen Type Catherized urine 03/14/20 10:25 Urine Color Yellow (YELLOW) 03/14/20 10:25 Urine Appearance Hazy (CLEAR) 03/14/20 10:25 Urine pH 5.0 (5.0 - 8.0) 03/14/20 10:25 Ur Specific [place] 1.015 (1.000-1.030) 03/14/20 10:25 Urine Protein 1+ (NEGATIVE) 03/14/20 10:25 Urine Glucose (UA) 4+ (NEGATIVE) 03/14/20 10:25 Urine Ketones 1+ (NEGATIVE) 03/14/20 10:25 Urine Occult Blood Negative (NEGATIVE) 03/14/20 10:25 Urine Nitrite Negative (NEGATIVE) 03/14/20 10:25 Urine Bilirubin Negative (NEGATIVE) 03/14/20 10:25 Urine Urobilinogen Normal (NORMAL) 03/14/20 10:25 Ur Leukocyte Esterase Negative (NEGATIVE) 03/14/20 10:25 Urine RBC None seen /HPF (0-3) 03/14/20 10:25 Urine WBC None seen /HPF (0-5) 03/14/20 10:25 Ur Squamous Epith Cells Negative /HPF (NEGATIVE) 03/14/20 10:25 Urine Bacteria Negative /HPF (NEGATIVE) 03/14/20 10:25 Urine Mucus Few /HPF (NEGATIVE) 03/14/20 10:25 Ur Culture Indicated? No/not indicated 03/14/20 10:25 Stool Description 50g brown liquid 03/14/20 03:02 Stl Occult Blood (IFOB) Positive (NEGATIVE) A 03/14/20 03:02 Stool for White Cells Positive (NEGATIVE) A 03/14/20 03:02 Stl C. diff Tox B Gene Negative (NEGATIVE) 03/14/20 03:02 Stl C. diff [id number] Negative (NEGATIVE) 03/14/20 03:02 SARS-CoV-2 (PCR) Negative (NEGATIVE) 03/13/20 21:21 - Plan (1) Leukocytosis Status: Acute Qualifiers: Leukocytosis type: unspecified Qualified Code(s): D72.829 - Elevated white blood cell count, unspecified Plan: NS AT 110 ML/HR, PROCALAMINE AT 40 ML/HR, ALBUMIN 25% IV DAILY, LEVAQUIN 750MG IV Q48H, FORTAZ 1G IV DAILY, HUMULIN R SLIDING SCALE, DUONEBS QID. (2) Hyponatremia Status: Acute (3) Dehydration, moderate Status: Acute (4) Lung abscess Status: Acute Qualifiers: Pulmonary abscess pneumonia presence: without pneumonia Laterality: right Lung location: upper lobe of lung Qualified Code(s): J85.2 - Abscess of lung without pneumonia
[2020-03-16] MEDS: DUONEB 0.5 MG/3 MG (3 mL) NEB SCH ×4 (09:57→20:56)
[2020-03-16] MEDS: ALBUMIN HUMAN 25%- 100 ML 100 ML IV SCH (09:57)
[2020-03-16] MEDS: SYNTHROID 50 mcg TAB PO SCH (09:58)
[2020-03-16] MEDS: ZOLOFT PO SCH (09:58)
[2020-03-16] MEDS: WELLBUTRIN XL 150 MG (DAILY) PO SCH (09:58)
[2020-03-16] MEDS: FORTAZ or TAZICEF VIAL INJ 1 G in NS 100 ML IV + SPIKE MINIBAG* 100 ML IV SCH (11:00)
[2020-03-16] MEDS: LEVAQUIN PREMIX IV 750 MG 750 MG/150 ML BAG IV SCH (12:00)
[2020-03-16] MEDS: PROCALAMINE 3 % 1,000 ML IV SCH (14:18)
[2020-03-16] MEDS: SNACK - Diabetic Appropriate PO SCH (20:12)
[2020-03-16] MEDS: XANAX PO PRN (20:13)
[2020-03-16] MEDS: MAGNESIUM SULFATE 1 GRAM/100 mL PREMIX 1 GM/100 ML BAG IV PRN ×4 (20:36→23:19)
[2020-03-16] MEDS: TAPENTADOL 100 MG PO PRN (20:42)
[2020-03-17] MEDS: K-RIDER 10 MEQ/NS 100 ML 10 MEQ/100 ML BAG IV PRN ×2 (00:53→02:08)
[2020-03-17] MEDS: NS 1000 ML 1,000 ML IV SCH (03:57)
[2020-03-17] MEDS: LYRICA CAP 150 mg PO SCH (05:44)
[2020-03-17 05:54] LABS: BASOPHILS # (AUTO) 0.1 X10^3/uL (0.0-0.1); BASOPHILS % (AUTO) 0.7 % (0.2-1.0); EOSINOPHILS # (AUTO) 0.1 x10^3/uL (0.0-0.2); EOSINOPHILS % (AUTO) 0.3 % (0.9-2.9); HEMATOCRIT 30.9 % (36.0-47.0); HEMOGLOBIN 10.1 g/dL (12.0-16.0); LYMPHOCYTES # (AUTO) 1.6 X10^3/uL (1.3-2.9); LYMPHOCYTES % (AUTO) 8.9 % (21.0-51.0); MEAN CORPUSCULAR HEMOGLOBIN 29.3 pg (27.0-34.0); MEAN CORPUSCULAR HGB CONC 32.6 g/dL (33.0-35.0); MEAN CORPUSCULAR VOLUME 89.8 fL (80.0-100.0); MEAN PLATELET VOLUME 9.1 fL (7.4-11.0); MONOCYTES # (AUTO) 0.9 x10^3/uL (0.3-0.8); NEUTROPHILS # (AUTO) 15.5 x10^3/uL (2.2-4.8); NEUTROPHILS % (AUTO) 85.1 % (42.0-75.0); PLATELET COUNT 311 X10^3/uL (150.0-450.0); RED BLOOD COUNT 3.44 X10^6/uL (3.5-5.4); RED CELL DISTRIBUTION WIDTH 15.7 % (11.6-16.5); WHITE BLOOD COUNT 18.3 X10^3/uL (3.6-10.0)
[2020-03-17 06:10] LABS: ALANINE AMINOTRANSFERASE 45 Units/L (12-78); ALBUMIN 2.5 g/dL (3.4-5.0); ALKALINE PHOSPHATASE 104 Units/L (46-116); ASPARTATE AMINO TRANSFERASE 33 Units/L (15-37); BLOOD UREA NITROGEN 26 mg/dL (7-18); CARBON DIOXIDE 20.5 mmol/L (21-32); CHLORIDE 99 mmol/L (98-107); COR CA(FOR HYPOALB) 10.2 mg/dL (8.5-10.1); COR NA(FOR HYPERGLY) 131 mmol/L (136-145); CREATININE 0.96 mg/dL (0.55-1.02); SODIUM 130 mmol/L (136-145); TOTAL PROTEIN 6.7 g/dL (6.4-8.2); eGFR NON BLACK RACES > 60 (>60)
--- NOTE | 2020-03-17 07:21 | RAD ---
HISTORYShortness of breath, right lung abscessSTUDYChest AP [id number]/16/2020,FINDINGSThe heart is within normal limits in size. The meliton are normal. No significant change is noted in the previously described large right apical cavitary mass which could represent abscess or cavitary neoplasm. Remainder of the lung cannon are clear. No pleural effusions are identified. Bony thorax is unremarkable.IMPRESSIONNo change large right apical cavitary mass which could represent lung abscess or cavitary neoplasmElectronically signed by: PAIGE MARIANO (Mar 17, 2020 07:20:00)
[2020-03-17] MEDS ORDERED: ZOLOFT PO ONE (08:27)
--- NOTE | 2020-03-17 08:45 | PCM.PROG ---
Progress Note - Progress Note for Day of Date of Exam: 03/16/20 - Subjective Subjective: IS BEING TREATED FOR LEUKOCYTOSIS, HYPONATREMIA, DEHYDRATION, AND A LUNG ABSCESS. TODAY, SHE IS ALERT AND ORIENTED, LYING IN BED ON MORNING ROUNDS. SHE CONTINUES WITH COMPLAINTS OF SHORTNESS OF BREATH AND WEAKNESS. ON EXAMINATION, HEART IS REGULAR IN RATE AND RHYTHM. BILATERAL LUNGS ARE NOTED WITH DIMINISHED LUNG SOUNDS THROUGHOUT. ABDOMEN IS ROUND, SOFT, AND NON-TENDER WITH NORMAL BOWEL SOUNDS NOTED IN ALL QUADRANTS. HER VITALS THIS MORNING ARE: 99.1-105-20-96%-184/72. LABS WERE OBTAINED. ABNORMAL LAB VALUES INCLUDE THE FOLLOWING: WBC 12.4, HGB 10.2, HCT 32.2, POTASSIUM 3.3, BUN 43, CREATININE 1.19, GLUCOSE 126, AST 42, CRP 120.20, ALBUMIN 2.3. AFB CULTURES PENDING. BLOOD, STOOL, URINE, AND SPUTUM CULTURES ARE ALSO PENDING. A CHEST CT WAS OBTAINED YESTERDAY AND REVEALED: Cavitary thick-walled large mass in the right upper lobe most suggestive of abscess. A CHEST XRAY WAS OBTAINED AND REVEALED: Large right apical cavitary mass; no significant change from 03/15/2020. SHE IS CURRENTLY RECEIVING PROCALAMINE AT 40 ML/HR, ALBUMIN 25% IV DAILY, NORMAL SALINE AT 110ML/HR, LEVAQUIN 750MG IV Q48H, FORTAZ 1G IV DAILY, HUMULIN R SLIDING SCALE, DUONEBS QID. WE WILL CONTINUE WITH CURRENT PLAN OF CARE TODAY. WE WILL OBTAIN A CHEST CT WITH CONTRAST IN THE MORNING. OTHERWISE, WE WILL FOLLOW UP WITH AM LABS AND CHEST XRAY AND CONTINUE TO MONITOR. - Past Medical Family Social History Past Med/Fam/Surg Hx: No changes since H&P Allergies: Allergies hydromorphone [From Dilaudid] Allergy (Verified 05/10/19 22:16) HALLUCINATIONS iodine Allergy (Verified 05/10/19 02:26) propofol Allergy (Verified 03/14/20 01:59) Bapzaqg-Ocz-Zan Reductase Inhibitor Allergy (Verified 05/10/19 02:26) - Review of Systems ROS: No change since H&P - Vital Signs and I&O's Vital Signs: Temperature 98.5 F Pulse Rate [Radial] 83 Pulse Rate 72 Respiratory Rate 18 Blood Pressure [Right Arm] 120/64 O2 Sat by Pulse Oximetry 97 Intake and Output: Intake & Output 03/14/20 03/15/20 03/16/20 03/17/20 11:59 11:59 11:59 11:59 Intake Total 1160 / 1160 1979 3060 / 3060 3230 / 3230 Balance 1160 / 1160 1979 3060 / 3060 3230 / 3230 - Physical Exam Oriented: Normal Eyes: Normal Ear: Normal Nose: Normal Throat: Normal Respiratory: Generalized, Diminished Cardiovascular: Normal : Normal Auscultation: Bowel Sounds: Normal Palpation: Normal Tenderness: Normal Skin: Normal Musculoskeletal: Normal Psychiatric: Normal Mood Description: Calm Affect: Normal Speech Pattern: Clear, Appropriate - Laboratory and Diagnostics Result Diagrams: 03/17/20 05:21 03/17/20 05:21 Labs: 03/15/20 12:55 Sputum - Expectorated Sputum Sputum Culture - Preliminary 03/15/20 12:55 Sputum - Expectorated Sputum - Final 03/14/20 10:25 Urine,Catheterized Urine Culture - Final 03/14/20 03:02 Stool Stool Culture - Final 03/14/20 03:02 Stool - Final 03/13/20 22:28 Blood Blood Culture - Preliminary 03/13/20 22:24 Blood Blood Culture - Preliminary Laboratory WBC 18.3 X10^3/uL (3.6-10.0) H 03/17/20 05:21 RBC 3.44 X10^6/uL (3.5-5.4) L 03/17/20 05:21 Hgb 10.1 g/dL (12.0-16.0) L 03/17/20 05:21 Hct 30.9 % (36.0-47.0) L 03/17/20 05:21 MCV 89.8 fL (80.0-100.0) 03/17/20 05:21 MCH 29.3 pg (27.0-34.0) 03/17/20 05:21 MCHC 32.6 g/dL (33.0-35.0) L 03/17/20 05:21 RDW 15.7 % (11.6-16.5) 03/17/20 05:21 Plt Count 311 X10^3/uL (150.0-450.0) 03/17/20 05:21 Plt Count Comment Adequate (ADEQUATE) 03/13/20 21:30 MPV 9.1 fL (7.4-11.0) 03/17/20 05:21 Neut % (Auto) 85.1 % (42.0-75.0) H 03/17/20 05:21 Lymph % (Auto) 8.9 % (21.0-51.0) L 03/17/20 05:21 [place] % (Auto) 5.0 % (0.0-13.0) 03/17/20 05:21 Eos % (Auto) 0.3 % (0.9-2.9) L 03/17/20 05:21 Baso % (Auto) 0.7 % (0.2-1.0) 03/17/20 05:21 Neut # (Auto) 15.5 x10^3/uL (2.2-4.8) H 03/17/20 05:21 Lymph # (Auto) 1.6 X10^3/uL (1.3-2.9) 03/17/20 05:21 [place] # (Auto) 0.9 x10^3/uL (0.3-0.8) H 03/17/20 05:21 Eos # (Auto) 0.1 x10^3/uL (0.0-0.2) 03/17/20 05:21 Baso # (Auto) 0.1 X10^3/uL (0.0-0.1) 03/17/20 05:21 Absolute Nucleated RBC 0.0 /100WBC 03/17/20 05:21 Total Counted 100 03/13/20 21:30 Neutrophils % (Manual) 95 % (39-76) H 03/13/20 21:30 Lymphocytes % (Manual) 3 % (13-43) L 03/13/20 21:30 Monocytes % (Manual) 2 % (4-9) L 03/13/20 21:30 Plt Morphology Comment Normal (NORMAL) 03/13/20 21:30 RBC Morphology Abnormal (NORMAL) A 03/13/20 21:30 Anisocytosis Slight A 03/13/20 21:30 ESR 92 MM/HOUR (0-20) H 03/14/20 05:15 Sodium 130 mmol/L (136-145) L 03/17/20 05:21 Corrected Sodium 131 mmol/L (136-145) L 03/17/20 05:21 Potassium 3.5 mmol/L (3.5-5.1) 03/17/20 05:21 Chloride 99 mmol/L (98-107) 03/17/20 05:21 Carbon Dioxide 20.5 mmol/L (21-32) L 03/17/20 05:21 BUN 26 mg/dL (7-18) H 03/17/20 05:21 Creatinine 0.96 mg/dL (0.55-1.02) 03/17/20 05:21 Est GFR (MDRD) Af Amer > 60 (>60) 03/17/20 05:21 Est GFR (MDRD) Non-Af > 60 (>60) 03/17/20 05:21 Glucose 138 mg/dL (65-99) H 03/17/20 05:21 POC Glucose (mg/dL) 121 mg/dL (65-99) H 03/17/20 05:15 Calcium 9.0 mg/dL (8.5-10.1) 03/17/20 05:21 Corrected Calcium 10.2 mg/dL (8.5-10.1) H 03/17/20 05:21 Magnesium 2.0 mg/dL (1.7-2.9) 03/17/20 05:21 Total Bilirubin 0.40 mg/dL (0.2-1.0) 03/17/20 05:21 AST 33 Units/L (15-37) 03/17/20 05:21 ALT 45 Units/L (12-78) 03/17/20 05:21 Alkaline Phosphatase 104 Units/L (46-116) 03/17/20 05:21 C-Reactive Protein 143.20 mg/L (0-3.0) H 03/17/20 05:21 Total Protein 6.7 g/dL (6.4-8.2) 03/17/20 05:21 Albumin 2.5 g/dL (3.4-5.0) L 03/17/20 05:21 Globulin 4.2 g/dL (2.5-4.5) 03/17/20 05:21 Albumin/Globulin Ratio 0.6 Ratio (1.1-2.1) L 03/17/20 05:21 Specimen Type Catherized urine 03/14/20 10:25 Urine Color Yellow (YELLOW) 03/14/20 10:25 Urine Appearance Hazy (CLEAR) 03/14/20 10:25 Urine pH 5.0 (5.0 - 8.0) 03/14/20 10:25 Ur Specific [place] 1.015 (1.000-1.030) 03/14/20 10:25 Urine Protein 1+ (NEGATIVE) 03/14/20 10:25 Urine Glucose (UA) 4+ (NEGATIVE) 03/14/20 10:25 Urine Ketones 1+ (NEGATIVE) 03/14/20 10:25 Urine Occult Blood Negative (NEGATIVE) 03/14/20 10:25 Urine Nitrite Negative (NEGATIVE) 03/14/20 10:25 Urine Bilirubin Negative (NEGATIVE) 03/14/20 10:25 Urine Urobilinogen Normal (NORMAL) 03/14/20 10:25 Ur Leukocyte Esterase Negative (NEGATIVE) 03/14/20 10:25 Urine RBC None seen /HPF (0-3) 03/14/20 10:25 Urine WBC None seen /HPF (0-5) 03/14/20 10:25 Ur Squamous Epith Cells Negative /HPF (NEGATIVE) 03/14/20 10:25 Urine Bacteria Negative /HPF (NEGATIVE) 03/14/20 10:25 Urine Mucus Few /HPF (NEGATIVE) 03/14/20 10:25 Ur Culture Indicated? No/not indicated 03/14/20 10:25 Stool Description 50g brown liquid 03/14/20 03:02 Stl Occult Blood (IFOB) Positive (NEGATIVE) A 03/14/20 03:02 Stool for White Cells Positive (NEGATIVE) A 03/14/20 03:02 Stl C. diff Tox B Gene Negative (NEGATIVE) 03/14/20 03:02 Stl C. diff [id number] Negative (NEGATIVE) 03/14/20 03:02 SARS-CoV-2 (PCR) Negative (NEGATIVE) 03/13/20 21:21 - Plan (1) Leukocytosis Status: Acute Qualifiers: Leukocytosis type: unspecified Qualified Code(s): D72.829 - Elevated white blood cell count, unspecified Plan: NS AT 110 ML/HR, PROCALAMINE AT 40 ML/HR, ALBUMIN 25% IV DAILY, LEVAQUIN 750MG IV Q48H, FORTAZ 1G IV DAILY, HUMULIN R SLIDING SCALE, DUONEBS QID. (2) Hyponatremia Status: Acute (3) Dehydration, moderate Status: Acute (4) Lung abscess Status: Acute Qualifiers: Pulmonary abscess pneumonia presence: without pneumonia Laterality: right Lung location: upper lobe of lung Qualified Code(s): J85.2 - Abscess of lung without pneumonia
[2020-03-17] MEDS: ZOLOFT PO SCH (09:33)
[2020-03-17] MEDS: SYNTHROID 50 mcg TAB PO SCH (09:34)
[2020-03-17] MEDS: WELLBUTRIN XL 150 MG (DAILY) PO SCH (09:34)
[2020-03-17] MEDS: DUONEB 0.5 MG/3 MG (3 mL) NEB SCH (09:34)
[2020-03-17] MEDS: FORTAZ or TAZICEF VIAL INJ 1 G in NS 100 ML IV + SPIKE MINIBAG* 100 ML IV SCH (09:35)
[2020-03-17] MEDS: ALBUMIN HUMAN 25%- 100 ML 100 ML IV SCH (09:36)
[2020-03-17] MEDS ORDERED: ZOFRAN INJ 4 MG VIAL IVP PRN (09:42)
[2020-03-17] MEDS ORDERED: PHENERGAN INJ 25 MG IM PRN (09:42)
[2020-03-17] MEDS: XANAX PO PRN (09:47)
[2020-03-17] MEDS ORDERED: PHENERGAN INJ 25 MG IM ONE (09:51)
--- NOTE | 2020-03-17 11:11 | CT ---
HISTORYLUNG ABCESSSTUDYCHEST CT w/O IV contrastCOMPARISONCT 03/14/2020TECHNIQUEMultiple axial images of the chest were obtained from the thoracic inlet to the upper abdomenwithout the administration of IV contrast. Sagittal and coronal reformations are performed. Dose reduction techniques including Automated Exposure Control (AEC) and adjustment of mA and kV were utilized.FINDINGSInfiltrative density with large air-fluid level is seen in the right upper lobe. Area of soft tissue density has increased in size since prior study measuring 12.3 x 7.2 cm. Cavitary portion with air-fluid level is unchanged in size. Findings could represent pneumonia and lung abscess. Tuberculosis could cause a similar appearance as could necrotic malignancy.There are mild interstitial and ground-glass densities in the periphery of the consolidative density in the right upper and middle lobes of the lungs, as well as scattered in the mid left lung. These densities have increased from prior study and may represent worsening of infection. Metastatic disease could cause a similar appearance, though.No pneumothorax or pleural effusion is seen. Heart and thoracic aorta are normal in size. Mild mediastinal lymphadenopathy is similar to prior study. Postoperative changes are seen in the stomach. Moderate spondylosis is seen in the thoracic spine.IMPRESSIONSlight increase in size of infiltrative density in the right upper lobe with stable appearing cavitary area with air-fluid level. Findings likely represent pneumonia and lung abscess, but tuberculosis or necrotic malignancy could cause a similar appearance.New adjacent ground-glass and interstitial densities are seen in the right upper lobe and right middle lobe as well as a few similar densities in the left perihilar region. This may represent worsening pneumonia but metastatic disease could give a similar appearance.Electronically signed by: Dariusz Phillips (Mar 17, 2020 11:09:16)
[2020-03-17 12:13] VITALS: BP 116/56
== END 2020-03-17 12:20 | disposition short-term general hospital (02) | DRG 178 ==
LOC: MED/SURG → OBSVTOIN 19:56
PROVIDERS: ADMIT Internal Medicine; ATTEND Internal Medicine
DX: R11.2 Nausea with vomiting, unspecified; Z11.59 Encounter for screening for other viral diseases; R19.7 Diarrhea, unspecified; E03.8 Other specified hypothyroidism; R06.02 Shortness of breath; R22.2 Localized swelling, mass and lump, trunk; D72.828 Other elevated white blood cell count; E87.1 Hypo-osmolality and hyponatremia; J85.2 Abscess of lung without pneumonia; E11.65 Type 2 diabetes mellitus with hyperglycemia; E86.0 Dehydration
CPT/HCPCS: 36415; 71010; 71045; 71250; 80053; 81001; 82270; 83630; 83735; 85025; 85652; 86140; 87015; 87040; 87045; 87070; 87086; 87116; 87205; 87206; 87427; 87449; 87493; 87635; 87899; 93306; 94640; 97110; 97162; 97167; 97530; 97535; A4216; A4222; B5200; J0713; J1956; J2550; J3475; J3480; J7030; J7050; J7620; P9047; S0106